=== PATIENT | male | born 1960 | race Caucasian/White ===

== ENCOUNTER 2020-05-29 10:56 | Inpatient (IN) | payer MEDICAID ==
[2020-05-29] VITALS (8 sets, daily range): BP systolic 76–103; BP diastolic 52–68
[~2020-05-29] VITALS: Ht 170.1 cm; Wt 74.2 kg
[2020-05-29] MEDS ORDERED: LACTATED RINGERS 2,000 ML IV ONE (11:19)
[2020-05-29 11:43] LABS: BASOPHILS % (AUTO) 0 % (0-10); EOSINOPHILS % (AUTO) 0 % (0-10); LYMPHOCYTES # (AUTO) 2.8 10^3/uL (1.0-4.0); LYMPHOCYTES % (AUTO) 13 % (12-44); MEAN CORPUSCULAR HEMOGLOBIN 32 pg (25-34); MEAN CORPUSCULAR HGB CONC 30 g/dL (32-36); MEAN CORPUSCULAR VOLUME 107 fL (80-99); MEAN PLATELET VOLUME 11.9 fL (9.0-12.2); MONOCYTES # (AUTO) 1.2 10^3/uL (0.0-1.0); MONOCYTES % (AUTO) 6 % (0-12); NEUTROPHILS # (AUTO) 17.5 10^3/uL (1.8-7.8); NEUTROPHILS % (AUTO) 80 % (42-75); PLATELET COUNT 195 10^3/uL (130-400); WHITE BLOOD COUNT 21.8 10^3/uL (4.3-11.0)
[2020-05-29 11:44] LABS: ALBUMIN 2.3 GM/DL (3.2-4.5); CHLORIDE 106 MMOL/L (98-107); POTASSIUM 4.3 MMOL/L (3.6-5.0); SODIUM 139 MMOL/L (135-145)
[2020-05-29 11:46] LABS: CALCIUM 7.8 MG/DL (8.5-10.1)
[2020-05-29 11:47] LABS: GLUCOSE 143 MG/DL (70-105); HEMATOCRIT 20 % (40-54); HEMOGLOBIN 5.9 g/dL (13.3-17.7); TOTAL PROTEIN 6.2 GM/DL (6.4-8.2)
[2020-05-29 11:48] LABS: CARBON DIOXIDE 13 MMOL/L (21-32)
[2020-05-29 11:49] LABS: BILIRUBIN,TOTAL 1.9 MG/DL (0.1-1.0)
[2020-05-29 11:50] LABS: ALKALINE PHOSPHATASE 72 U/L (40-136)
[2020-05-29 11:51] LABS: GFR ESTIMATED 45
[2020-05-29] MEDS ORDERED: PANTOPRAZOLE 40 MG (PROTONIX) VIAL ONE ×2 (11:51→11:52)
[2020-05-29 11:52] LABS: BUN/CREATININE RATIO 20; INR 2.2 (0.8-1.4); PROTHROMBIN TIME PATIENT 24.9 SEC (12.2-14.7)
[2020-05-29 11:53] LABS: ALANINE AMINOTRANSFERASE 22 U/L (0-55)
[2020-05-29 11:54] LABS: LIPASE 54 U/L (8-78)
[2020-05-29] MEDS ORDERED: PANTOPRAZOLE INJECTION 200 MG in NS (IVPB) 100 ML IV STA (11:54)
[2020-05-29] MEDS ORDERED: PANTOPRAZOLE 40 MG (PROTONIX) VIAL IV ONE (12:00)
--- NOTE | 2020-05-29 12:10 | NUR ---
Pharmacy called and stated there is a nationwide shortage on Protonix drips. Dr. Coronel notified.
[2020-05-29] MEDS ORDERED: LORazepam INJ 2 MG/ML (ATIVAN) VIAL IVP ONE (12:15)
[2020-05-29 12:17] LABS: LYMPHOCYTES % (MANUAL) 13 %; MONOCYTES % (MANUAL) 4 %; NEUTROPHILS % (MANUAL) 83 %; POLYCHROMASIA SLIGHT
[2020-05-29 12:18] LABS: HYPOCHROMASIA MODERATE; TARGET CELLS SLIGHT
--- NOTE | 2020-05-29 12:30 | ED GI ---
General Chief Complaint: Abdominal/GI Problems Stated Complaint: VOMITTING BLOOD Nursing Triage Note: Pt to ED in wheelchair. Pt reports being a heavy drinker of 1-1 1/2 pints of whiskey daily. Pt reports vomiting blood and bloody diarrhea that began four days ago. Pt reports not drinking since episode began. Pt very weak and dizzy. Sepsis Screen: No Definite Risk Source of Information: Patient Exam Limitations: No Limitations History of Present Illness Date Seen by Provider: May 29, 2020 Time Seen by Provider: 12:00 Initial Comments Patient is a 59-year-old male who presents to the emergency department today with a chief complaint of vomiting blood and passing blood in his stool. Patient states that he has been doing this off and on for the last 3 weeks. Patient admits to significant alcohol consumption up to a pint of whiskey a day and several glasses of wine a day. Patient states his last drink was 5 days ago on Wednesday evening. Patient states that he is continued to have maroon-colored vomitus and black stool streaked with red blood. He has never had symptoms like this before. He is currently nauseated. He feels generally weak. He denies chest pain, shortness of breath. He is having some mild abdominal discomfort in the left upper quadrant. He denies any problems with his bladder. No recent fevers, chills, productive cough or other infectious symptoms. Patient states he has never had a seizure related to coming off alcohol. All other review of systems reviewed and negative except as stated. Timing/Duration: 4-5 Days Severity/Quality: Moderate, Burning, Cramping Location: LUQ, Generalized Abdomen Radiation: No Radiation Activities at Onset: None Associated Symptoms: No Back Pain, No Chest Pain, No Fever/Chills; Nausea/Vomiting Allergies and Home Medications Allergies Coded Allergies: No Known Drug Allergies (Unverified , 05/29/20) Patient Home Medication List Home Medication List Reviewed: Yes Review of Systems Review of Systems Constitutional: malaise, weakness EENTM: No Symptoms Reported Respiratory: No Symptoms Reported Cardiovascular: No Symptoms Reported Gastrointestinal: Abdomen Distended, Blood Streaked Stools, Nausea, Poor Appetite, Vomiting Genitourinary: No Symptoms Reported Musculoskeletal: no symptoms reported Skin: no symptoms reported Psychiatric/Neurological: Anxiety, Depressed All Other Systems Reviewed Negative Unless Noted: Yes Past [place]-Tdvnii-Bgabzm Hx Patient Social History Alcohol Use: Regular Use Alcohol Beverage of Choice: Whiskey, Wine Recreational Drug Use: Yes (marijuana) Smoking Status: Current Everyday Smoker Type Used: Cigarettes 2nd Hand Smoke Exposure: Yes Recent Foreign Travel: No Contact w/Someone Who Travel: No Recent Infectious Disease Expo: No Recent Hopitalizations: No Past Medical History Surgeries: Yes (l ankle, ear) Orthopedic Respiratory: No Cardiac: No Neurological: No Genitourinary: No Gastrointestinal: No Musculoskeletal: No Endocrine: No HEENT: No Cancer: No Psychosocial: No Blood Disorders: No Physical Exam Vital Signs Vital Signs - First Documented 05/29/20 11:05 Temp 35.3 Pulse 128 Resp 13 B/P (MAP) 80/58 (65) Pulse Ox 100 O2 Delivery Room Air Capillary Refill : Less Than 3 Seconds Height/Weight/BMI Height: '" Weight: lbs. oz. kg; 21.00 BMI Method: General Appearance: WD/WN, no apparent distress HEENT: PERRL/EOMI, pale conjunctivae (R), pale conjunctivae (L) Neck: full range of motion Respiratory: normal breath sounds, no respiratory distress, no accessory muscle use Cardiovascular: regular rate, rhythm, tachycardia Gastrointestinal: soft, tenderness (Mild tenderness in the left upper quadrant, unable to palpate liver margin) Extremities: normal range of motion, non-tender, normal inspection Neurologic/Psychiatric: no motor/sensory deficits, alert, normal mood/affect, oriented x 3 Skin: warm/dry, pallor Focused Exam Sepsis Stage: Ruled Out Lactate Level 05/29/20 14:50: Lactic Acid Level 10.14*H 05/29/20 16:55: Lactic Acid Level 6.55*H Time of Focused Exam: 14:30 Respiratory: Chest Non Tender, Lungs Clear, Normal Breath Sounds Cardiovascular: Regular Rate, Rhythm Peripheral Pulses: 2+ Radial Pulses (R), 2+ Radial Pulses (L) Skin: warm/dry, pallor Lactic Acid Level Laboratory Tests Test 05/29/20 14:50 05/29/20 16:55 Lactic Acid Level 10.14 MMOL/L (0.50-2.00) *H 6.55 MMOL/L (0.50-2.00) *H Within 3hrs of presentation: Admin fluids, Admin ABX, Blood cultures prior to ABX's, Focus exam, Lactate level Progress/Results/Core Measures Results/Orders Lab Results Laboratory Tests Test 05/29/20 11:15 05/29/20 14:50 05/29/20 16:55 Range/Units White Blood Count 21.8 H 4.3-11.0 10^3/uL Red Blood Count 1.83 L 4.30-5.52 10^6/uL Hemoglobin 5.9 *L 13.3-17.7 g/dL Hematocrit 20 *L 40-54 % Mean Corpuscular Volume 107 H 80-99 fL Mean Corpuscular Hemoglobin 32 25-34 pg Mean Corpuscular Hemoglobin Concent 30 L 32-36 g/dL Red Cell Distribution Width 20.6 H 10.0-14.5 % Platelet Count 195 130-400 10^3/uL Mean Platelet Volume 11.9 9.0-12.2 fL Immature Granulocyte % (Auto) 1 % Neutrophils (%) (Auto) 80 H 42-75 % Lymphocytes (%) (Auto) 13 12-44 % Monocytes (%) (Auto) 6 0-12 % Eosinophils (%) (Auto) 0 0-10 % Basophils (%) (Auto) 0 0-10 % Neutrophils # (Auto) 17.5 H 1.8-7.8 10^3/uL Lymphocytes # (Auto) 2.8 1.0-4.0 10^3/uL Monocytes # (Auto) 1.2 H 0.0-1.0 10^3/uL Eosinophils # (Auto) 0.0 0.0-0.3 10^3/uL Basophils # (Auto) 0.0 0.0-0.1 10^3/uL Immature Granulocyte # (Auto) 0.2 H 0.0-0.1 10^3/uL Neutrophils % (Manual) 83 % Lymphocytes % (Manual) 13 % Monocytes % (Manual) 4 % Polychromasia SLIGHT Hypochromasia MODERATE Target Cells SLIGHT Prothrombin Time 24.9 H 12.2-14.7 SEC INR Comment 2.2 H 0.8-1.4 Activated Partial Thromboplast Time 34 24-35 SEC Sodium Level 139 135-145 MMOL/L Potassium Level 4.3 3.6-5.0 MMOL/L Chloride Level 106 98-107 MMOL/L Carbon Dioxide Level 13 L 21-32 MMOL/L Anion Gap 20 H 5-14 MMOL/L Blood Urea Nitrogen 32 H 7-18 MG/DL Creatinine 1.60 H 0.60-1.30 MG/DL Estimat Glomerular Filtration Rate 45 BUN/Creatinine Ratio 20 Glucose Level 143 H 70-105 MG/DL Calcium Level 7.8 L 8.5-10.1 MG/DL Corrected Calcium 9.2 8.5-10.1 MG/DL Total Bilirubin 1.9 H 0.1-1.0 MG/DL Aspartate Amino Transf (AST/SGOT) 56 H 5-34 U/L Alanine Aminotransferase (ALT/SGPT) 22 0-55 U/L Alkaline Phosphatase 72 40-136 U/L Total Protein 6.2 L 6.4-8.2 GM/DL Albumin 2.3 L 3.2-4.5 GM/DL Lipase 54 8-78 U/L Serum Alcohol < 10 <10 MG/DL Lactic Acid Level 10.14 *H 6.55 *H 0.50-2.00 MMOL/L My Orders Orders - TRICE LOZADA MD Lactated Ringers (Lr 1000 Ml Iv Solution (05/29/20 11:19) Cbc With Automated Diff (05/29/20 11:36) Comprehensive Metabolic Panel (05/29/20 11:36) Lipase (05/29/20 11:36) Alcohol (05/29/20 11:36) Protime With Inr (05/29/20 11:36) Partial Thromboplastin Time (05/29/20 11:36) Type And Screen (05/29/20 11:36) Ed Iv/Invasive Line Start (05/29/20 11:36) Pantoprazole Injection (Protonix Injecti (05/29/20 11:51) Pantoprazole Injection (Protonix Injecti (05/29/20 12:00) Ns (Ivpb) (Sodium C... W/Pantoprazole In (05/29/20 11:54) Pantoprazole Injection (Protonix Injecti (05/29/20 11:52) Lorazepam Injection (Ativan Injection) (05/29/20 12:15) Manual Differential (05/29/20 11:15) Red Cells Leukocytes Reduced (05/29/20 12:18) Ondansetron Injection (Zofran Injectio (05/29/20 13:15) Ns Iv 1000 Ml (Sodium Chloride 0.9%) (05/29/20 13:20) Blood Culture (05/29/20 14:37) Lactic Acid Analyzer (05/29/20 14:37) Ceftriaxone For Iv Use (Rocephin For I (05/29/20 14:45) Octreotide Injection (Sandostatin Inje (05/29/20 14:45) Blood Culture (05/29/20 15:03) Octreotide Injection (Sandostatin Inje (05/29/20 15:16) Octreotide Injection (Sandostatin Inje (05/29/20 15:30) Medications Given in ED Current Medications Medications Dose Ordered Sig/Darleen Route Start Time Stop Time Status Last Admin Dose Admin Ceftriaxone Sodium 1000 mg/ Sterile Water 10 ml @ 200 mls/hr ONCE ONCE IV 05/29/20 14:45 05/29/20 14:47 DC 05/29/20 15:24 200 MLS/HR Lactated Ringer's 2,000 ml @ ud STK-MED ONCE IV 05/29/20 11:19 05/29/20 11:22 DC 05/29/20 11:33 2,000 MLS/HR Lorazepam 2 mg ONCE ONCE IVP 05/29/20 12:15 05/29/20 12:16 DC 05/29/20 12:21 2 MG Octreotide Acetate 50 mcg ONCE ONCE IV 05/29/20 15:30 05/29/20 15:31 DC 05/29/20 15:55 50 MCG Ondansetron HCl 4 mg ONCE ONCE IVP 05/29/20 13:15 05/29/20 13:19 DC 05/29/20 13:48 4 MG Pantoprazole 80 mg ONCE ONCE IV 05/29/20 12:00 05/29/20 12:01 DC 05/29/20 11:59 80 MG Vital Signs/I&O 05/29/20 05/29/20 05/29/20 05/29/20 11:05 13:38 13:47 13:54 Temp 35.3 36.1 36.1 36.7 Pulse 128 129 134 125 Resp B/P (MAP) 80/58 (65) 88/59 96/61 76/52 Pulse Ox 100 100 100 100 O2 Delivery Room Air Room Air 05/29/20 05/29/20 05/29/20 05/29/20 14:00 14:06 15:50 16:09 Temp 36.1 36.1 36.2 37.0 Pulse 129 126 125 113 Resp 13 10 14 15 B/P (MAP) 78/60 78/60 83/65 103/68 Pulse Ox 97 98 98 98 O2 Delivery Room Air Room Air Room Air Room Air 05/29/20 16:19 Temp 37.0 Pulse 117 Resp 15 B/P (MAP) 77/63 Pulse Ox 98 O2 Delivery Room Air Blood Pressure Mean: 65 Progress Progress Note : Time: 17:21 Progress Note Patient resting comfortably here in the emergency department. Case is discussed with Dr. Pritchard on for the hospitalist service as well as Dr. Padilla on for general surgery secondary to the GI bleed. Patient's blood pressure is currently 98/65. He is completing his second unit of blood/packed red blood cells. Patient is made aware that he will be admitted to the hospital here. There was some question as to whether or not we would have bed availability however this has been resolved. Patient is getting Rocephin 1 g for spontaneous bacterial peritonitis prophylaxis. He has no clinical or objective findings concerning for SBP at this time. The patient is afebrile. His belly is nontender. Suspect lactic acidosis is from his dehydration and GI bleed and NOT severe sepsis/septic shock. Lactic acid was 10 at initial draw 1 blood cultures were done. Patient is responding to fluid and blood resuscitation nicely. Critical Care Note Critical Care Start Time: 12:15 Stop Time: 14:30 Total Time (minutes) 1 hour of critical care time for evaluation and management of this hypotensive patient with GI bleeding both upper and lower. Management of dehydration, review and interpretation and management of abnormal laboratory functions, blood transfusions, discussion with hospitalist Departure Communication (Admissions) Time/Spoke to Admitting Phy: 14:[address] Pritchard at 1436, requests octreotide be started, a general surgery consultation. He also requests Rocephin 1 g IV for SBP prophylaxis. Patient will be admitted to the ICU. Time/Spoke to Consulting Phy: 14:[address] Padilla Impression Primary Impression: GI bleed Qualified Codes: K92.0 - Hematemesis Additional Impression: Anemia Qualified Codes: D64.89 - Other specified anemias Disposition: ADMITTED INPATIENT Condition: Critical Admissions Decision to Admit Reason: Admit from ER (General) Decision to Admit/Date: May 29, 2020 Time/Decision to Admit Time: 14:40 Departure-Patient Inst. Referrals: [facility] [place] (PCP/Family) Primary Care Physician TRICE LOZADA MD May 29, 2020 12:30
--- NOTE | 2020-05-29 13:00 | NUR ---
Pt unable to sign consent for blood products due to weakness. Verbal consent witnessed with MARISA Lama.
[2020-05-29] MEDS ORDERED: ONDANSETRON 4 MG/2 ML (SDV) Z0FRAN IVP ONE (13:15)
[2020-05-29] MEDS ORDERED: NS IV 1000 ML 1,000 ML ONE (13:20)
--- NOTE | 2020-05-29 14:37 | NUR ---
Spoke with pt's significant other regarding plan of care.
[2020-05-29] MEDS ORDERED: OCTREOTIDE (FOR SQ USE) 100 MCG/ML VIAL (SandoSTATIN) SC ONE (14:45)
[2020-05-29] MEDS ORDERED: cefTRIAXone FOR IV USE 1,000 MG in WATER (STERILE) FOR INJECTION 10 ML IV ONE (14:45)
[2020-05-29] MEDS ORDERED: OCTREOTIDE (FOR BOLUS) 50 MCG/ML SYR (SandoSTATIN) ONE (15:16)
[2020-05-29] MEDS ORDERED: OCTREOTIDE (FOR BOLUS) 50 MCG/ML SYR (SandoSTATIN) IV ONE (15:30)
--- NOTE | 2020-05-29 16:24 | CONSULTATION REPORT ---
DATE OF SERVICE: ATTENDING MUD ANALYSIS WELL LOGGING OPERATOR: [facility]. HISTORY OF PRESENT ILLNESS: The patient is a 59-year-old male, who presented to the emergency department with hematemesis as well as dark stools. He states that this has been going on an intermittent basis for the past three to four weeks. He does admit to a significant amount of alcohol consumption for many years. The patient also appears to have abdominal ascites. He also does have other risk factors including smoking daily. Laboratory work was performed, which did show a significant anemia with a hemoglobin of 5.9 and hematocrit of 20. PAST MEDICAL HISTORY: Peptic ulcer disease, gastroesophageal reflux disease and alcohol abuse. PAST SURGICAL HISTORY: Left ankle ORIF. ALLERGIES: No known drug allergies. MEDICATIONS: None. SOCIAL HISTORY: Positive smoke 40 pack years. Positive marijuana, whiskey daily for many years. FAMILY HISTORY: Noncontributory. REVIEW OF SYSTEMS: This is a well-nourished male currently in gaurded secondary to the nausea and fatigue. He is not experiencing any shortness of breath or difficulty breathing. No chest pain, palpitations, diaphoresis. He has had intermittent episodes of bouts of nausea and vomiting with red blood as well as a maroon-colored blood. He also does report maroon-colored stools on an intermittent basis, all of which have been occurring for the past four weeks. No fever, chills and no recent inadvertent weight loss. All other review of systems is negative. PHYSICAL EXAMINATION: VITAL SIGNS: Temperature 36.1, blood pressure 78/60, pulse 126, respirations 10 and pulse ox 98% on room air. CHEST: A few scattered rales and rhonchi bilaterally. HEART: Regular and no murmurs. EXTREMITIES: No lower extremity edema, negative Homans sign. HEENT: No scleral icterus. NECK: No cervical lymphadenopathy. ABDOMEN: Soft and nondistended. There is mild discomfort in the epigastric region. SKIN: Warm and dry. LABORATORY DATA: WBC 21.8, hemoglobin 5.9, hematocrit 20 and platelets 195. BUN 32, creatinine 1.60 and total bilirubin 1.9. INR is 2.2. ASSESSMENT AND PLAN: A 59-year-old male with gastrointestinal bleeding, most likely peptic ulcer disease versus esophageal varices. He will need resuscitation with blood and blood products. His Child-Farooq classification is at a 7, which is a class B and does portend 80% one-year survival. We will await resuscitation and PPI acid reducers and proceed with an EGD on this admission. Job ID: [id number] DocumentID: [id number] Dictated Date: 05/29/2020 15:58:07 Merchandise Manager Date: 05/29/2020 16:23:47 Dictated By: JOY LEONARD MD [facility]
--- NOTE | 2020-05-29 17:38 | NUR ---
Second unit of blood infusing to floor.
[2020-05-29] MEDS ORDERED: LORazepam INJ 2 MG/ML (ATIVAN) VIAL IM/IV PRN (18:30)
[2020-05-29] MEDS ORDERED: D5 1/2 NS 1000 ML IV SOLUTION 1,000 ML IV PRN (18:30)
[2020-05-29] MEDS ORDERED: SENNA W/DOCUSATE (SENOKOT S) TABLET PO PRN (18:30)
[2020-05-29] MEDS ORDERED: ANTACID SUSP 30 ML UDC (MYLANTA) PO PRN (18:30)
[2020-05-29] MEDS ORDERED: 1/2 NS IV SOLUTION 1,000 ML IV PRN (18:30)
[2020-05-29] MEDS ORDERED: ONDANSETRON 4 MG/2 ML (SDV) Z0FRAN IV PRN (18:30)
[2020-05-29] MEDS ORDERED: ONDANSETRON 4 MG (ZOFRAN) ORAL DISSOLVE TAB SL PRN (18:30)
[2020-05-29] MEDS ORDERED: LORazepam 1 MG (ATIVAN) TAB PO PRN (18:30)
[2020-05-29] MEDS: NS IV 1000 ML 1,000 ML IV SCH (18:33)
[2020-05-29] MEDS ORDERED: ONDANSETRON 4 MG/2 ML (SDV) Z0FRAN IVP PRN (19:00)
[2020-05-29 19:11] LABS: ALBUMIN 2.1 GM/DL (3.2-4.5); CHLORIDE 106 MMOL/L (98-107); POTASSIUM 4.6 MMOL/L (3.6-5.0); SODIUM 137 MMOL/L (135-145)
[2020-05-29 19:12] LABS: CALCIUM 7.6 MG/DL (8.5-10.1); INR 2.2 (0.8-1.4); PROTHROMBIN TIME PATIENT 24.7 SEC (12.2-14.7)
[2020-05-29 19:14] LABS: GLUCOSE 132 MG/DL (70-105); TOTAL PROTEIN 5.5 GM/DL (6.4-8.2)
[2020-05-29 19:15] LABS: BILIRUBIN,TOTAL 2.3 MG/DL (0.1-1.0); CARBON DIOXIDE 19 MMOL/L (21-32)
[2020-05-29 19:17] LABS: ALKALINE PHOSPHATASE 62 U/L (40-136); CREATININE SERUM 1.46 MG/DL (0.60-1.30); GFR ESTIMATED 50
[2020-05-29 19:18] LABS: BUN/CREATININE RATIO 25
[2020-05-29 19:20] LABS: ALANINE AMINOTRANSFERASE 22 U/L (0-55)
[2020-05-29] MEDS ORDERED: LIDOCAINE UROJET 2% GEL 10 ML PKG ONE (20:15)
[2020-05-29] MEDS: LORazepam INJ 2 MG/ML (ATIVAN) VIAL IV PRN (20:21)
[2020-05-29] MEDS ORDERED: LIDOCAINE UROJET 2% GEL 10 ML PKG TOP ONE (20:30)
[2020-05-29 22:01] LABS: HEMOGLOBIN 7.9 g/dL (13.3-17.7)
[2020-05-29] MEDS: DexMEDEtomidine PRE MIX 100 ML IV SCH (23:08)
[2020-05-29] MEDS ORDERED: NS IV 500 ML 500 ML IV SCH ×2 (23:15)
--- NOTE | 2020-05-29 23:35 | NUR ---
THIS RN NOTIFIED EICU OF PATIENT'S DECREASED BP WITH SBP IN 70'S AND HR IN 100'S, NEW ORDER RECEIVED SEE EMAR AND ORDER HX.
[2020-05-30] VITALS (10 sets, daily range): BP systolic 55–129; BP diastolic 41–89
--- NOTE | 2020-05-30 00:49 | NUR ---
THIS RN NOTIFIED DR. RESENIDZ WITH TELE-ICU OF PATIENT'S SBT IN 50-60'S, PRECEDEX HAS BEEN OFF SINCE 0025. 1 UNIT PRBC'S CURRENTLY INFUSING. ORDER RECEIVED TO INCREASE RATE OF INFUSION PER PROTOCOL AT THIS TIME, WILL CONTINUE TO MONITOR.
[2020-05-30] MEDS: LORazepam INJ 2 MG/ML (ATIVAN) VIAL IV PRN ×2 (01:24→10:22)
--- NOTE | 2020-05-30 02:15 | NUR ---
THIS RN NOTIFIED DR. RESENDIZ WITH TELE-ICU OF PATIENT'S SBP SUSTAINING IN 60-70'S, PATIENT'S BLOOD TRANSFUSION JUST COMPLETED AT THIS TIME. NEW ORDERS RECEIVED, SEE EMAR AND ORDER HX.
[2020-05-30] MEDS ORDERED: NS IV 1000 ML 1,000 ML IV SCH ×2 (02:30→04:30)
[2020-05-30] MEDS: NS IV 1000 ML 1,000 ML IV SCH (03:39)
--- NOTE | 2020-05-30 04:00 | Pulmonary Consultation ---
History of Present Illness History of Present Illness Date Seen by Provider: May 30, 2020 Time Seen by Provider: 03:55 Date of Admission Allergies and Home Medications Allergies Coded Allergies: No Known Drug Allergies (Unverified , 05/29/20) Past [place]abz-Mellbo-Zewwot Hx Patient Social History Alcohol Use: Regular Use Alcohol Beverage of Choice: Whiskey, Wine Recreational Drug Use: Yes (marijuana) Smoking Status: Current Everyday Smoker Type Used: Cigarettes 2nd Hand Smoke Exposure: Yes Recent Foreign Travel: No Contact w/Someone Who Travel: No Recent Infectious Disease Expo: No Recent Hopitalizations: No Past Medical History Surgeries: Yes (l ankle, ear) Orthopedic Respiratory: No Cardiac: No Neurological: No Genitourinary: No Gastrointestinal: No Musculoskeletal: No Endocrine: No HEENT: No Cancer: No Psychosocial: No Blood Disorders: No Family Medical History Patient reports no known family medical history. Review of Systems Time Seen by Provider: 03:57 Sepsis Event Evaluation Height, Weight, BMI Height: '" Weight: lbs. oz. kg; 21.00 BMI Method: Exam Exam Vital Signs Date Time Temp Pulse Resp B/P (MAP) Pulse Ox O2 Delivery O2 Flow Rate FiO2 05/30/20 02:15 36.5 86 12 65/44 95 Room Air 05/30/20 00:45 36.6 84 19 59/43 97 Room Air 05/30/20 00:28 36.5 86 17 55/41 94 Room Air 05/30/20 00:00 36.5 05/30/20 00:00 94 32 66/45 (52) 91 Room Air 05/29/20 23:08 36.8 120 20 100/81 95 Room Air 05/29/20 23:00 123 21 66/46 (53) 96 Room Air 05/29/20 22:00 118 17 120/81 (94) 94 Room Air 05/29/20 21:00 138 15 117/84 (95) 99 Room Air 05/29/20 20:00 97 Room Air 05/29/20 20:00 121 25 112/85 (94) 97 Room Air 05/29/20 20:00 36.8 120 20 100/81 (87) 95 Room Air 05/29/20 19:23 Room Air 05/29/20 19:00 116 20 116/73 (87) 98 Room Air 05/29/20 18:47 113 05/29/20 18:19 113 05/29/20 17:34 37.0 111 17 84/61 (68) 98 Room Air 05/29/20 16:19 37.0 117 15 77/63 98 Room Air 05/29/20 16:09 37.0 113 15 103/68 98 Room Air 05/29/20 15:50 36.2 125 14 83/65 98 Room Air 05/29/20 14:06 36.1 126 10 78/60 98 Room Air 05/29/20 14:00 36.1 129 13 78/60 97 Room Air 05/29/20 13:54 36.7 125 19 76/52 100 Room Air 05/29/20 13:47 36.1 134 19 96/61 100 05/29/20 13:38 36.1 129 9 88/59 100 05/29/20 11:05 35.3 128 13 80/58 (65) 100 Room Air I & O 05/30/20 07:00 Intake Total 2345 ml Output Total 250 ml Balance 2095 ml Height & Weight Height: '" Weight: lbs. oz. kg; 21.00 BMI Method: Respiratory: Chest Non Tender, Lungs Clear, Normal Breath Sounds Cardiovascular: Regular Rate, Rhythm Capillary Refill: Less Than 3 Seconds Peripheral Pulses: 2+ Radial Pulses (R), 2+ Radial Pulses (L) Gastrointestinal: soft, tenderness (Mild tenderness in the left upper quadrant, unable to palpate liver margin) Results Lab Laboratory Tests 05/29/20 11:15 05/29/20 18:45 05/29/20 21:50 Assessment/Plan Assessment/Plan Acute GIB s/p 3 units PRBC -Monitor Hb -Lab and RN is having a difficult time obtaining blood. -1 unit of PRBC on hold. If unable to obtain labs secondary to difficult stick will proceed with transfusion secondary to hypotension and known bleeding. Lab and RN are currently trying to obtain blood. -EICU gave another liter of PRBC last night secondary to acute bleeding and hypotension -start rocephin for ppx -Octreotide -Protonix BID -Plan is for EGD Alcohol dependance -CIWA protocol -Pt has been getting ativan -Precedex was stopped at 115 Hypotension -Give a liter bolus -Will have surgery place central line this AM. Hepatic encpephalopathy with lethargy and agitation -PT may need to be intubated -Check ammonia level -Check ABG -Precedex was stopped secondary to hypotension Metabolic acidosis -Repeat LA -Change IVF to LR Acute renal failure -Give a liter bolus of NS -Monitor Update: Called to room stat because of worsening agitation 5 people currently ho lding pt down. Lab also at bedside unable to obtain blood. I proceeded with emergent intubation secondary to instability of patient. Pt became hypotensive. glue specialty supervisor is calling surgery to place central line. Then at 645am I was called back to patients room secondary to blood pressure of 46/36. Because pt was on the verge of coding I placed emergent central line and started Levophed. Pt would have went into cardiac arrest if we waited for surgery to arrive. OPAL CHAVES DO May 30, 2020 04:00
--- NOTE | 2020-05-30 04:30 | NUR ---
TIMELINE NOTE BELOW: 0400- THIS RN NOTIFIED DR. CHAVES OF PATIENT'S CONDITION THROUGHOUT SHIFT, SBP RANGING ANYWHERE BETWEEN 60-70'S INCREASING TO SBP IN 90'S AFTER BOLUS RECEIVED. PATIENT INCREASINGLY AGITATED, CLIMBING OUT OF BED AND PULLING AT ESSENTIAL LINES AND TUBES. UNABLE TO OBTAIN MIDNIGHT LACTIC ACID DUE TO PATIENT'S AGITATION. 0430- THIS RN NOTIFIED DR. CHAVES THAT PATIENT IS INCREASINGLY AGITATED, UNABLE TO OBTAIN MORNING LABS AT THIS TIME DESPITE 5 RN'S AT BEDSIDE TO HELP WITH PATIENT. 0500- DECISION MADE BY DR. CHAVES TO INTUBATE SECONDARY TO INCREASED AGITATION, CONFUSION AND HYPOTENSION. ROOM BEING READIED FOR INTUBATION AND RT NOTIFIED. 0510- THIS RN NOTIFIED PATIENT'S EMERGENCY CONTACT/SIGNIFICANT OTHER, JENNIFER GALINDO, AT THIS TIME. TELEPHONE CONSENT RECEIVED, WITNESSED BY MARISA KIMBALL. 0511- DR. CHAVES, RT X 2, AND RN X 2 AT BEDSIDE FOR INTUBATION. 4MG VERSED IV, AND 50 MCG FENTANYL GIVEN PER DR. CHAVES. 0514- 5 CC'S PROPOFOL GIVEN PER DR. CHAVES. INTUBATION IN PROGRESS. 15- 50MG ROCURONIUM GIVEN PER DR. CHAVES. INTUBATION IN PROGRESS. 0519- PT INTUBATED. SIZE 8 ETT. POSITION OF TUBE 24 AT THE LIP WITH POSITIVE COLOR CHANGE. BILATERAL BREATH SOUNDS AUSCULTATED BY THIS RN. STAT CXR ORDERED. PT PLACED ON VENT WITH VENTILATOR SETTINGS PER DR CHAVES BY RT. 0520- PROPOFOL GTT INITIATED AT 20MCG/KG/MIN, NS BOLUS INFUSING AT THIS TIME. OGT PLACED. FARFAN PLACED. RESTRAINTS PLACED. PATIENT VITALS REMAIN STABLE. 0600- THIS RN NOTIFIED DR. CHAVES OF PATIENT'S LABS AND DECREASING BP. NEW ORDER RECEIVED AT THIS TIME FOR CENTRAL LINE PLACEMENT BY SURGEON WELL FLUID BOLUS. SEE EMAR AND ORDER HX. USER SUPPORT ANALYST NOTIFIED SURGEON AT THIS TIME FOR CENTRAL LINE PLACEMENT. 0645- THIS RN NOTIFIED DR. CHAVES OF CONTINUED HYPOTENSION, CURRENT BP 46/36. DR. CHAVES AT BEDSIDE TO ASSESS AND ORDERED STAT CENTRAL LINE PLACEMENT SECONDARY TO PATIENT'S SUSTAINING HYPOTENSION AND NEED FOR VASOPRESSOR THERAPY IMMEDIATELY. 1 UNIT OF PRBC'S ALSO ORDERED, SEE ORDER HX AND TRANSFUSION HX. 0654- DR. CHAVES AT BEDSIDE TO PLACE CENTRAL LINE. 50MG ROCURONIUM GIVEN PER DR. CHAVES. 0655- LEVOPHED STARTED AT 0.03 MCG/KG/MIN. 0658- CENTRAL LINE PLACEMENT COMPLETED AT THIS TIME. 0900- THIS RN UPDATED SIGNIFICANT OTHER, JENNIFER GALINDO, AT THIS TIME.
[2020-05-30] MEDS ORDERED: MIDAZOLAM 5 MG/5 ML (VERSED) VIAL ONE (04:42)
[2020-05-30] MEDS ORDERED: fentaNYL INJECTION 100 MCG/2 ML AMP ONE (04:42)
[2020-05-30] MEDS ORDERED: PROPOFOL DRIP (ICU) 100 ML IV ONE (04:42)
[2020-05-30] MEDS ORDERED: NS IV 500 ML 500 ML IV SCH (05:00)
[2020-05-30 05:18] LABS: ABG BASE EXCESS -1.8 MMOL/L (-2.5-2.5); ABG OXYGEN SATURATION 70 % (94-100); ABG PCO2 40 MMHG (35-45); ABG PH 7.37 (7.37-7.43); ABG PO2 43 MMHG (79-93); ABG TCO2 23.9 MMOL/L (21.0-31.0)
--- NOTE | 2020-05-30 05:26 | Pulmonary Procedures ---
Pulmonary Procedures Date of Procedure Date of Service: May 30, 2020 Reason for Intubation: acute respiratory distress and agitation. Time of Intubation: 05:25 Intubation Method: orotracheal Tube Size: 8 Medications: Fentanyl, Propofol, Rocuronium, Versed Positive End Tide CO2: Yes Breath Sounds after Intubation: bilateral-equal Intubation Complications: no complications Post Intubation Xray: Yes OPAL CHAVES DO May 30, 2020 05:26
[2020-05-30 05:31] LABS: ALLENS TEST POS; VENTILATOR NO
[2020-05-30 05:32] LABS: INSPIRED O2 ROOM AIR; PATIENT TEMP 36.8
[2020-05-30 05:33] LABS: CHLORIDE 112 MMOL/L (98-107); POTASSIUM 4.4 MMOL/L (3.6-5.0); SODIUM 138 MMOL/L (135-145)
[2020-05-30 05:34] LABS: CALCIUM 6.7 MG/DL (8.5-10.1)
[2020-05-30 05:35] LABS: GLUCOSE 108 MG/DL (70-105)
[2020-05-30 05:36] LABS: CARBON DIOXIDE 20 MMOL/L (21-32)
[2020-05-30 05:37] LABS: BASOPHILS # (AUTO) 0.1 10^3/uL (0.0-0.1); BASOPHILS % (AUTO) 0 % (0-10); EOSINOPHILS % (AUTO) 0 % (0-10); HEMATOCRIT 23 % (40-54); HEMOGLOBIN 7.7 g/dL (13.3-17.7); LYMPHOCYTES # (AUTO) 3.6 10^3/uL (1.0-4.0); LYMPHOCYTES % (AUTO) 23 % (12-44); MEAN CORPUSCULAR HEMOGLOBIN 31 pg (25-34); MEAN CORPUSCULAR HGB CONC 33 g/dL (32-36); MEAN CORPUSCULAR VOLUME 93 fL (80-99); MEAN PLATELET VOLUME 12.5 fL (9.0-12.2); MONOCYTES # (AUTO) 1.9 10^3/uL (0.0-1.0); MONOCYTES % (AUTO) 12 % (0-12); NEUTROPHILS # (AUTO) 10.4 10^3/uL (1.8-7.8); NEUTROPHILS % (AUTO) 65 % (42-75); PLATELET COUNT 97 10^3/uL (130-400); WHITE BLOOD COUNT 16.1 10^3/uL (4.3-11.0)
[2020-05-30 05:38] LABS: CREATININE SERUM 1.17 MG/DL (0.60-1.30); PHOSPHORUS 3.2 MG/DL (2.3-4.7)
[2020-05-30 05:39] LABS: BUN/CREATININE RATIO 35
[2020-05-30 05:41] LABS: MAGNESIUM 1.4 MG/DL (1.6-2.4)
[2020-05-30 05:49] LABS: GFR ESTIMATED > 60
[2020-05-30] MEDS ORDERED: NS IV 1000 ML 1,000 ML IV ONE (06:00)
[2020-05-30] MEDS: NOREPINEPHRINE 4 MG/250 ML 250 ML IV SCH ×3 (06:55→22:22)
[2020-05-30] MEDS ORDERED: NS IV 1000 ML 1,000 ML ONE (07:28)
[2020-05-30] MEDS ORDERED: ROCURONIUM 10 MG/ML 5 ML SYRINGE IV ONE (07:33)
--- NOTE | 2020-05-30 07:41 | Diagnostic Imaging Report ---
INDICATION: Evaluate line placement. Comparison made with prior examination 05/30/2020 FINDINGS: The left internal jugular central venous catheter crosses the midline in this cephalad direction presumably up the right internal jugular vein. ET and NG tubes are in satisfactory position. Some left basilar atelectasis and/or pneumonitis. There is no pneumothorax. Mediastinum is unremarkable. IMPRESSION: Abnormal placement of a left internal jugular central venous catheter as described. Left basilar atelectasis and/or pneumonitis. Dictated by: Dictated on workstation # [id number]
--- NOTE | 2020-05-30 07:50 | Diagnostic Imaging Report ---
INDICATION: Tube placement. No prior examinations are available for comparison. FINDINGS: ET and NG tubes are in satisfactory position. Heart size is normal. Lungs are clear. There appears to be some mild venous congestion. There is no pneumothorax. IMPRESSION: Mild central pulmonary venous congestion. ET and NG tubes appear to be in satisfactory position. Dictated by: Dictated on workstation # [id number]
--- NOTE | 2020-05-30 08:28 | NUR ---
THIS RN CALLED DR. LEONARD TO GIVE UPDATE ON PATIENT'S STATUS.
[2020-05-30] MEDS: LACTATED RINGERS 1,000 ML IV SCH ×3 (09:59→20:19)
[2020-05-30] MEDS: PANTOPRAZOLE 40 MG (PROTONIX) VIAL IV SCH ×2 (10:00→20:00)
[2020-05-30] MEDS: PROPOFOL DRIP (ICU) 100 ML IV SCH ×3 (10:00→21:39)
[2020-05-30] MEDS ORDERED: LACTATED RINGERS 1,000 ML IV ONE (10:00)
[2020-05-30] MEDS: THIAMINE INJECTION 100 MG, FOLIC ACID INJECTION 1 MG, VITAMIN MULTI INJECTION 10 ML, MA... IV SCH ×5 (10:01)
[2020-05-30] MEDS ORDERED: MIDAZOLAM DRIP PRE-MIX 100 ML IV ONE (10:13)
[2020-05-30] MEDS: MIDAZOLAM DRIP PRE-MIX 100 ML IV SCH (10:23)
--- NOTE | 2020-05-30 10:35 | Diagnostic Imaging Report ---
EXAMINATION: Portable erect AP chest at 10:08 a.m. INDICATION: PICC line insertion. FINDINGS: The exam performed earlier today at 07:25 a.m. noted a left-sided central venous catheter in place. The tip of the catheter had crossed the midline and was directed cephalad in the region of the right internal jugular vein. On this exam, the tip of the line seems unchanged in position. I would recommend that the line be repositioned so that the tip overlies the superior vena cava. Also, in the interval since the prior exam a right-sided PICC line has been inserted. The tip of the line overlies the midportion of the superior vena cava. There is no sign of a pneumothorax on the right. The overall appearance of the chest has not changed significantly otherwise. There is persistent involvement of the left lung base by atelectasis/infiltrate. IMPRESSION: 1. The tip of the central venous catheter on the left continues to overlie the expected location of the right internal jugular vein. Recommendations as above. 2. There has been interval insertion of a right-sided PICC line without apparent complication. 3. The overall appearance of the chest is otherwise stable. Report given to ICU nurse (Eli) at 10:41AM 05/30/2020/cb Dictated by: Dictated on workstation # [id number]
--- NOTE | 2020-05-30 10:55 | NUR ---
SPOKE WITH DR MEJIA VIA TELEPHONE. HE REPORTS THAT PICC IS IN GOOD PLACEMENT ET OK TO USE. MARISA HARDIN NOTIFIED
[2020-05-30 10:58] LABS: ABG BASE EXCESS -3.2 MMOL/L (-2.5-2.5); ABG OXYGEN SATURATION 100 % (94-100); ABG PCO2 36 MMHG (35-45); ABG PH 7.39 (7.37-7.43); ABG PO2 127 MMHG (79-93); ABG TCO2 22.3 MMOL/L (21.0-31.0)
[2020-05-30 10:59] LABS: PATIENT TEMP 36.4; VENTILATOR NO
[2020-05-30 11:05] LABS: CLARITY,URINE CLEAR; COLOR,URINE YELLOW; GLUCOSE, URINE (UA) NEGATIVE (NEGATIVE); KETONES,URINE NEGATIVE (NEGATIVE); LEUKOCYTE ESTERASE ,URINE NEGATIVE (NEGATIVE); NITRITE,URINE NEGATIVE (NEGATIVE); PH,URINE 6.5 (5-9); PROTEIN,URINE NEGATIVE (NEGATIVE)
[2020-05-30 11:18] LABS: BILIRUBIN,URINE 1+ (NEGATIVE)
[2020-05-30 11:19] LABS: BACTERIA,URINE NEGATIVE /HPF; RBC,URINE 50-100 /HPF; SQUAMOUS EPITHELIAL CELL,UR RARE /HPF; WBC,URINE 0-2 /HPF
--- NOTE | 2020-05-30 11:29 | Pulmonary Procedures ---
Pulmonary Procedures Date of Procedure Date of Service: May 30, 2020 Lumen: triple (US guided) Central Line Procedure: betadine prep, sterile drapes applied, sterile dressing applied Position: internal jugular (L) Complications: none Post Position: sutured, good blood return, position confirmed w/ CXR OPAL CHAVES DO May 30, 2020 11:29
[2020-05-30 11:31] LABS: HEMOGLOBIN 8.5 g/dL (13.3-17.7)
[2020-05-30] MEDS ORDERED: MAGNESIUM 1 GM/100 ML IVPB 200 ML IV ONE (11:54)
[2020-05-30] MEDS: MAGNESIUM 1 GM/100 ML IVPB 100 ML IV SCH ×2 (11:59→13:12)
[2020-05-30] MEDS: OCTREOTIDE DRIP 500 MCG/NS 99 ML IV SCH ×4 (13:14→20:00)
--- NOTE | 2020-05-30 13:19 | NUR ---
UNABLE TO SPEAK WITH PT AT THIS TIME- I DID REACH OUT TO HIS SIGNIFICANT OTHER (JENNIFER GALINDO) TO COMPLETE THE MED REC ACCORDING TO WENT THE PT DOES NOT TAKE ANY PRESCRIPTION OR OTC MEDICATIONS THERE WAS NOTHING LISTED ON THE EXT MED HISTORY
--- NOTE | 2020-05-30 14:24 | NUR ---
THIS NURSE UPDATED GF JENNIFER ON PT CONDITION.
[2020-05-30] MEDS: cefTRIAXone FOR IV USE 1,000 MG in WATER (STERILE) FOR INJECTION 10 ML IV SCH (14:46)
--- NOTE | 2020-05-30 14:55 | NUR ---
THIS NURSE NOTIFIED DR LEONARD PT HAS BEEN HYPOTENSIVE ON LEVO. PT ABD IS SOFT. PT HAS NOT HAD A BM BUT THERE IS MORE BLOOD COMING FROM OGT. REPEAT H&H AT 11 AFTER UNIT OF PRBC WAS HGB 8.5 AND HCT 25. NO NEW ORDERS AT THIS TIME WILL CONTINUE TO MONITOR.
--- NOTE | 2020-05-30 15:44 | History & Physical-Hospitalist ---
History of Present Illness HPI/Chief Complaint Dustin Solares is a 59 year old male with PMH alcohol dependence who presented with hematemesis. He is a poor historian. He reports that he has been having bloody emesis and melena for an undetermined amount of time. He reports drinking every day. He denies fevers and chills. He denies trouble breathing and cough. He reports abdominal swelling. Source: patient Exam Limitations: no limitations Date Seen 05/29/20 Time Seen by a Provider: 16:45 Attending Physician Saadia Gibson MD PCP [facility] [place] Referring Physician Date of Admission May 29, 2020 at 17:06 Home Medications & Allergies Home Medications Reviewed patient Home Medication Reconciliation performed by pharmacy medication reconciliations wheel alignment technician and/or nursing. Patients Allergies have been reviewed. Allergies Allergies Coded Allergies No Known Drug Allergies (Afrjailclc91/9/20) Past Gstfazk-Tkbsoj-Pxequg Hx Past Med/Social Hx: Reviewed Nursing Past Med/Soc Hx Patient Social History Alcohol Use: Regular Use Alcohol Beverage of Choice: Whiskey, Wine Recreational Drug Use: Yes (marijuana) Smoking Status: Current Everyday Smoker Type Used: Cigarettes 2nd Hand Smoke Exposure: Yes Recent Foreign Travel: No Contact w/other who traveled: No Recent Hopitalizations: No Recent Infectious Disease Expo: No Past Medical History Surgeries: Orthopedic History of Blood Disorders: No Family History Patient reports no known family medical history. Review of Systems Constitutional: no symptoms reported EENTM: no symptoms reported Respiratory: no symptoms reported Cardiovascular: no symptoms reported Gastrointestinal: hematemesis, melena, nausea, vomiting Genitourinary: no symptoms reported Musculoskeletal: no symptoms reported Skin: no symptoms reported Psychiatric/Neurological: No Symptoms Reported Physical Exam Physical Exam Vital Signs Vital Signs - First Documented 05/29/20 05/30/20 05/30/20 11:05 05:49 07:00 Temp 35.3 Pulse 128 Resp 13 B/P (MAP) 80/58 (65) Pulse Ox 100 O2 Delivery Room Air O2 Flow Rate 40.00 FiO2 40 Capillary Refill : Less Than 3 Seconds Height, Weight, BMI Height: '" Weight: lbs. oz. kg; 21.00 BMI Method: General Appearance: No Apparent Distress, Chronically ill HEENT: PERRL/EOMI, Pharynx Normal Neck: Normal Inspection, Supple Respiratory: Lungs Clear, Normal Breath Sounds, No Respiratory Distress Cardiovascular: Regular Rate, Rhythm, No Edema, No Murmur Gastrointestinal: Normal Bowel Sounds, Soft, Distended; No Guarding Extremity: Normal Inspection, Non Tender, No Pedal Edema Neurologic/Psychiatric: Alert, No Motor/Sensory Deficits Skin: Warm/Dry, Jaundice Lymphatic: No Adenopathy Results Results/Procedures Labs Laboratory Tests 05/29/20 11:15 05/29/20 18:45 05/29/20 21:50 05/30/20 04:55 05/30/20 10:58 Patient resulted labs reviewed. Imaging: Reviewed Imaging Report Assessment/Plan Admission Diagnosis Acute blood loss anemia Admission Status: Inpatient Order (span 2 midnights) Reason for Inpatient Admission: GI bleeding requiring endoscopic evaluation and medical management Assessment and Plan Acute blood loss anemia Hematemesis Upper GI bleeding Possible variceal bleed History of peptic ulcer Likely decompensated alcoholic cirrhosis Lactic acidosis Acute kidney injury Hgb 5.9 on arrival 2 units PRBC ordered Monitor on telemetry IV PPI BID Octreotide IV fluids Surgery consulted, appreciate assistance Monitor hemoglobin closely Rocephin for SBP prophylaxis DVT prophylaxis: held due to GI bleed Diagnosis/Problems Diagnosis/Problems (1) WILLIS (acute kidney injury) (2) Lactic acidosis (3) Hematemesis (4) Alcohol dependence (5) Current smoker (6) GI bleed Status: Acute Qualifiers: GI bleed type/associated pathology: gastrointestinal hemorrhage with hematemesis Qualified Codes: K92.0 - Hematemesis (7) Anemia Status: Acute Clinical Quality Measures DVT/VTE Risk/Contraindication: Risk Factor Score Per Nursin RFS Level Per Nursing on Admit: 4+=Very High Contraindications-Pharm: Other *list below* Other: PT IS GI BLEED- NO VTE MEDICATION ORDERED AT THIS TIME. WILL USE SCD'S. SAADIA GIBSON MD May 30, 2020 15:44
--- NOTE | 2020-05-30 15:53 | Progress Note - Hospitalist ---
Subjective HPI/CC On Admission Date Seen by Provider: May 30, 2020 Time Seen by Provider: 09:10 Dustin Solares is a 59 year old male with H alcohol dependence who presented with hematemesis. He is a poor historian. He reports that he has been having bloody emesis and melena for an undetermined amount of time. He reports drinking every day. He denies fevers and chills. He denies trouble breathing and cough. He reports abdominal swelling. Subjective/Events-last exam He is intubated and sedated. Focused Exam Lactate Level 05/29/20 21:50: Lactic Acid Level 3.13*H 05/30/20 04:55: Lactic Acid Level 2.48*H 05/30/20 09:14: Lactic Acid Level 2.39*H Time of Focused Exam: 14:30 Objective Exam Vital Signs Vital Signs Date Time Temp Pulse Resp B/P (MAP) Pulse Ox O2 Delivery O2 Flow Rate FiO2 05/30/20 15:30 100 24 90 30 05/30/20 12:00 36.6 05/30/20 11:00 70/44 (53) Mechanical Ventilator 40.00 Capillary Refill : Less Than 3 Seconds General Appearance: No Apparent Distress, Chronically ill, Other (intubated and sedated) Respiratory: Lungs Clear, Normal Breath Sounds, No Respiratory Distress Cardiovascular: No Edema, Systolic Murmur, Tachycardia Gastrointestinal: Normal Bowel Sounds, Soft, Distended Extremity: Normal Inspection, Non Tender, No Pedal Edema Neurologic/Psychiatric: Other (sedated) Skin: Warm/Dry, Jaundice Results/Procedures Lab Laboratory Tests 05/29/20 18:45 05/29/20 21:50 05/30/20 04:55 05/30/20 10:58 Patient resulted labs reviewed. Imaging: Reviewed Imaging Report Assessment/Plan Assessment and Plan Assess & Plan/Chief Complaint Acute blood loss anemia Hematemesis Upper GI bleeding Possible variceal bleed History of peptic ulcer Likely decompensated alcoholic cirrhosis Hepatic encephalopathy Lactic acidosis Acute kidney injury Endotracheally intubated Hgb 7.7, improved post-transfusion s/p 2 units PRBC Continue IV PPI BID Continue Octreotide Continue IV fluids Surgery consulted, appreciate assistance Monitor hemoglobin closely Rocephin for SBP prophylaxis Begin Lactulose DVT prophylaxis: held due to GI bleed Diagnosis/Problems Diagnosis/Problems (1) WILLIS (acute kidney injury) (2) Lactic acidosis (3) Hematemesis (4) Alcohol dependence (5) Current smoker (6) GI bleed Status: Acute Qualifiers: GI bleed type/associated pathology: gastrointestinal hemorrhage with hematem esis Qualified Codes: K92.0 - Hematemesis (7) Anemia Status: Acute Clinical Quality Measures DVT/VTE Risk/Contraindication: Risk Factor Score Per Nursin RFS Level Per Nursing on Admit: 4+=Very High Contraindications-Pharm: Other *list below* Other: PT IS GI BLEED- NO VTE MEDICATION ORDERED AT THIS TIME. WILL USE SCD'S. IRAIS GIBSON MD May 30, 2020 15:53
[2020-05-30] MEDS ORDERED: OCTREOTIDE IV SCH ×2 (16:00)
[2020-05-30] MEDS ORDERED: SODIUM CHLORIDE IV ONE ×2 (16:00)
[2020-05-30] MEDS ORDERED: OCTREOTIDE IV ONE ×2 (16:00)
[2020-05-30] MEDS ORDERED: SODIUM CHLORIDE IV SCH ×2 (16:00)
--- NOTE | 2020-05-30 16:50 | NUR ---
THIS NURSE ATTEMPTED TO NOTIFY DR LEONARD ABOUT PT CONDITION. WILL TRY AGAIN LATER.
--- NOTE | 2020-05-30 17:24 | NUR ---
DR LEONARD AT BEDSIDE. THIS NURSE CLARIFIED WITH DR LEONARD PT CAN HAVE LACTULOSE VIA OGT. PT IS TO HAVE AN EGD TOMORROW. DR GIBSON NOTIFIED.
[2020-05-30] MEDS: LACTULOSE SYRUP 10GM/15ML (ENULOSE) 30ML UDC PO SCH ×2 (17:27→20:00)
--- NOTE | 2020-05-30 19:30 | NUR ---
THIS NURSE UPDATED JENNIFER GF OF PT CONDITION.
[2020-05-30] MEDS: VASOPRESSIN INJECTION 20 UNIT in NS (IVPB) 100 ML IV SCH (20:18)
[2020-05-30] MEDS: DexMEDEtomidine PRE MIX 100 ML IV SCH (21:13)
[2020-05-31 01:04] VITALS: BP 113/74
[2020-05-31] MEDS: PROPOFOL DRIP (ICU) 100 ML IV SCH ×5 (02:42→21:08)
[2020-05-31 03:02] LABS: BASOPHILS # (AUTO) 0.1 10^3/uL (0.0-0.1); BASOPHILS % (AUTO) 1 % (0-10); EOSINOPHILS # (AUTO) 0.1 10^3/uL (0.0-0.3); EOSINOPHILS % (AUTO) 1 % (0-10); HEMATOCRIT 24 % (40-54); HEMOGLOBIN 8.4 g/dL (13.3-17.7); LYMPHOCYTES # (AUTO) 4.1 10^3/uL (1.0-4.0); LYMPHOCYTES % (AUTO) 25 % (12-44); MEAN CORPUSCULAR HEMOGLOBIN 31 pg (25-34); MEAN CORPUSCULAR HGB CONC 35 g/dL (32-36); MEAN CORPUSCULAR VOLUME 88 fL (80-99); MEAN PLATELET VOLUME 10.8 fL (9.0-12.2); MONOCYTES # (AUTO) 2.3 10^3/uL (0.0-1.0); MONOCYTES % (AUTO) 14 % (0-12); NEUTROPHILS # (AUTO) 9.6 10^3/uL (1.8-7.8); NEUTROPHILS % (AUTO) 59 % (42-75); PLATELET COUNT 121 10^3/uL (130-400); WHITE BLOOD COUNT 16.3 10^3/uL (4.3-11.0)
[2020-05-31 03:03] LABS: CHLORIDE 113 MMOL/L (98-107); POTASSIUM 3.6 MMOL/L (3.6-5.0); SODIUM 136 MMOL/L (135-145)
[2020-05-31 03:04] LABS: CALCIUM 6.3 MG/DL (8.5-10.1)
[2020-05-31 03:05] LABS: GLUCOSE 116 MG/DL (70-105)
[2020-05-31 03:06] LABS: CARBON DIOXIDE 19 MMOL/L (21-32)
[2020-05-31 03:08] LABS: PHOSPHORUS 1.4 MG/DL (2.3-4.7)
[2020-05-31 03:09] LABS: CREATININE SERUM 0.77 MG/DL (0.60-1.30); GFR ESTIMATED > 60
[2020-05-31 03:10] LABS: BUN/CREATININE RATIO 43
[2020-05-31 03:11] LABS: MAGNESIUM 1.8 MG/DL (1.6-2.4)
[2020-05-31 03:15] LABS: ABG BASE EXCESS -2.1 MMOL/L (-2.5-2.5); ABG OXYGEN SATURATION 96 % (94-100); ABG PCO2 29 MMHG (35-45); ABG PH 7.48 (7.37-7.43); ABG PO2 76 MMHG (79-93); ABG TCO2 21.8 MMOL/L (21.0-31.0)
[2020-05-31 03:21] LABS: ALLENS TEST POSITIVE; INSPIRED O2 30; PATIENT TEMP 37.3; VENTILATOR YES
[2020-05-31] MEDS: VASOPRESSIN INJECTION 20 UNIT in NS (IVPB) 100 ML IV SCH ×3 (04:04→20:05)
[2020-05-31] MEDS: LACTATED RINGERS 1,000 ML IV SCH ×2 (04:07→12:15)
--- NOTE | 2020-05-31 04:47 | Pulmonary Progress Note ---
Subjective Time Seen by a Provider: 04:42 Subjective/Events-last exam PT is sedated on vent. Sepsis Event Evaluation Height, Weight, BMI Height: '" Weight: lbs. oz. kg; 21.00 BMI Method: Focused Exam Lactate Level 05/30/20 04:55: Lactic Acid Level 2.48*H 05/30/20 09:14: Lactic Acid Level 2.39*H 05/30/20 18:52: Lactic Acid Level 1.36 Time of Focused Exam: 14:30 Exam Exam Vital Signs Date Time Temp Pulse Resp B/P (MAP) Pulse Ox O2 Delivery O2 Flow Rate FiO2 05/31/20 04:04 116/80 05/31/20 03:12 37.3 05/31/20 02:42 102/69 05/31/20 01:04 90 24 94 30 05/31/20 01:00 91 05/31/20 00:58 113/70 05/30/20 23:41 36.9 05/30/20 22:22 98/68 05/30/20 21:39 94/62 05/30/20 20:50 100 24 96 30 05/30/20 20:18 93/56 05/30/20 20:00 100 Mechanical Ventilator 30 05/30/20 19:49 Mechanical Ventilator 30.00 05/30/20 19:44 36.8 05/30/20 19:00 93 05/30/20 18:15 101 24 94 30 05/30/20 18:00 96 23 74/54 (61) 94 Mechanical Ventilator 40.00 05/30/20 17:00 97 24 86/55 (65) 98 Mechanical Ventilator 40.00 05/30/20 16:57 111/72 05/30/20 16:00 93 23 111/72 (85) 96 Mechanical Ventilator 40.00 05/30/20 15:30 100 24 90 30 05/30/20 15:00 90 24 115/70 (85) 97 Mechanical Ventilator 40.00 05/30/20 14:00 96 24 84/56 (65) 98 Mechanical Ventilator 40.00 05/30/20 13:00 98 24 101/54 (70) 99 Mechanical Ventilator 40.00 05/30/20 12:41 102 05/30/20 12:00 36.6 05/30/20 12:00 100 29 94/54 (67) 96 Mechanical Ventilator 40.00 05/30/20 11:54 100 24 100 30 05/30/20 11:00 92 19 70/44 (53) 100 Mechanical Ventilator 40.00 05/30/20 10:23 105/62 05/30/20 10:00 91 23 98/72 (81) 100 Mechanical Ventilator 40.00 05/30/20 10:00 92/53 05/30/20 09:00 92 24 111/42 (65) 100 Mechanical Ventilator 40.00 05/30/20 08:00 101 24 129/86 (100) 100 Mechanical Ventilator 40.00 05/30/20 07:56 36.6 05/30/20 07:45 100 Mechanical Ventilator 40 05/30/20 07:30 36.6 98 24 129/89 100 Mechanical Ventilator 40 05/30/20 07:15 36.5 105 24 113/78 99 Mechanical Ventilator 40 05/30/20 07:00 96 24 148/84 (105) 96 Mechanical Ventilator 40.00 05/30/20 06:55 46/36 05/30/20 06:41 99 05/30/20 06:00 129 16 61/48 (52) 96 Mechanical Ventilator 05/30/20 05:49 123 24 100 40 05/30/20 05:00 106 28 158/90 (112) 91 Mechanical Ventilator I & O 05/31/20 07:00 Intake Total 1450 ml Output Total 950 ml Balance 500 ml Height & Weight Height: '" Weight: lbs. oz. kg; 21.00 BMI Method: General Appearance: No Apparent Distress, Chronically ill, Other (intubated and sedated) HEENT: PERRL/EOMI, Pharynx Normal Neck: Normal Inspection, Supple Respiratory: Lungs Clear, Normal Breath Sounds, No Respiratory Distress Cardiovascular: No Edema, Systolic Murmur, Tachycardia Capillary Refill: Less Than 3 Seconds Peripheral Pulses: 2+ Radial Pulses (R), 2+ Radial Pulses (L) Gastrointestinal: soft, tenderness (Mild tenderness in the left upper quadrant, unable to palpate liver margin) Extremity: Normal Inspection, Non Tender, No Pedal Edema Neurologic/Psychiatric: Other (sedated) Skin: Warm/Dry, Jaundice Lymphatic: No Adenopathy Results Lab Laboratory Tests 05/29/20 11:15 05/29/20 18:45 05/29/20 21:50 05/30/20 04:55 05/30/20 10:58 05/31/20 02:39 Assessment/Plan Assessment/Plan Acute GIB s/p 3 units PRBC -Monitor Hb -Lab and RN is having a difficult time obtaining blood. -1 unit of PRBC on hold. If unable to obtain labs secondary to difficult stick will proceed with transfusion secondary to hypotension and known bleeding. Lab and RN are currently trying to obtain blood. -EICU gave another liter of PRBC last night secondary to acute bleeding and hypotension -start rocephin for ppx -Octreotide -Protonix BID -Plan is for EGD Alcohol dependance -CIWA protocol -Pt has been getting ativan -Precedex was stopped at 115 Hypotension -Levophed and Vasopressin currently Hepatic encpephalopathy with lethargy and agitation -PT may need to be intubated -Check ammonia level -Check ABG -Precedex was stopped secondary to hypotension Metabolic acidosis -Repeat LA - IVF LR Acute renal failure -Monitor OPAL CHAVES DO May 31, 2020 04:47
[2020-05-31] MEDS: OCTREOTIDE DRIP 500 MCG/NS 99 ML IV SCH ×6 (04:49→23:40)
[2020-05-31] MEDS: NOREPINEPHRINE 4 MG/250 ML 250 ML IV SCH ×2 (04:51→15:36)
[2020-05-31 06:35] VITALS: BP 105/71
[2020-05-31 06:44] LABS: INR 1.7 (0.8-1.4); PROTHROMBIN TIME PATIENT 20.6 SEC (12.2-14.7)
--- NOTE | 2020-05-31 08:09 | Diagnostic Imaging Report ---
EXAMINATION: Chest radiograph, portable AP view. DATE: 05/31/2020 4:32 AM INDICATION: 59-year-old male, history of gastrointestinal bleed. Anemia. COMPARISON: May 30, 2020. FINDINGS: The endotracheal tube is approximately 3.3 cm above the amita. The nasogastric tube is in the stomach. Stable overall appearance of the cardiomediastinal silhouette. There is no identified pneumothorax. There is nonspecific left basilar airspace consolidation. There is a right-sided PICC line with tip not well seen. There is material overlying the patient which does limit the exam. IMPRESSION: 1. Unchanged nonspecific left basilar airspace consolidation. 2. Support lines and tubes as above. Dictated by: Dictated on workstation # [id number]
[2020-05-31] MEDS ORDERED: ROCURONIUM 50 MG/5 ML (ZEMURON) VIAL IV ONE (08:41)
[2020-05-31] MEDS: LACTULOSE SYRUP 10GM/15ML (ENULOSE) 30ML UDC PO SCH ×4 (08:57→21:07)
[2020-05-31] MEDS: PANTOPRAZOLE 40 MG (PROTONIX) VIAL IV SCH ×2 (08:57→21:07)
[2020-05-31] MEDS ORDERED: POTASSIUM PHOSPHATE INJ 30 MM in NS (IVPB) 250 ML IV ONE (09:00)
[2020-05-31 09:01] LABS: ABG BASE EXCESS -2.6 MMOL/L (-2.5-2.5); ABG OXYGEN SATURATION 96 % (94-100); ABG PCO2 32 MMHG (35-45); ABG PH 7.43 (7.37-7.43); ABG PO2 78 MMHG (79-93); ABG TCO2 21.9 MMOL/L (21.0-31.0); ALLENS TEST YES-POS; INSPIRED O2 30%; PATIENT TEMP 37.3; VENTILATOR YES
[2020-05-31] MEDS ORDERED: NS IV 500 ML 500 ML ONE (09:39)
--- NOTE | 2020-05-31 09:55 | Conscious Sedation/ASA ---
Conscious Sedation Pre-Proced Time 09:50 ASA Score 4 For ASA 3 and 4: Consider anesthesia and medical clearance. Also, for patients with a history of failed moderate sedation consider anesthesia. Airway Lungs Heart ASA score ASA 1: a normal healthy patient ASA 2: a patient with a mild systemic disease (mid diabetes, controlled hypertension, obesity ASA 3: a patient with a severe systemic disease that limits activity (angina, COPD, prior Myocardial infarction) ASA 4: a patient with an incapacitating disease that is a constant threat to life (CHF, renal failure) ASA 5: a moribund patient not expected to survive 24 hrs. (ruptured aneurysm) ASA 6: a declared brain- patient whose organs are being harvested. For emergent operations, add the letter E after the classification Mallampati Classification Grade 2 Sedation Plan Analgesia, Amnesia, Plan communicated to team members, Discussed options with patient/fam, Discussed risks with patient/fam The patient is an appropriate candidate to undergo the planned procedure, sedation, and anesthesia. The patient immediately re-assessed prior to indication. JOY LEONARD MD May 31, 2020 09:55
--- NOTE | 2020-05-31 09:55 | Progress Note-Pre Operative ---
Pre-Operative Progress Note H&P Reviewed The H&P was reviewed, patient examined and no changes noted. Date Seen by Provider: May 31, 2020 Time Seen by Provider: 09:50 Date H&P Reviewed: May 31, 2020 Time H&P Reviewed: 09:50 Pre-Operative Diagnosis: upper gi bleed JOY LEONARD MD May 31, 2020 09:55
[2020-05-31 10:16] VITALS: BP 105/71
--- NOTE | 2020-05-31 10:39 | Anesthesia-Procedure Note ---
Procedures/Interventions Procedure Start/Stop/Diagnosis Date of Procedure: May 31, 2020 Start Time: 09:55 Referring Physician: Kacie Preprocedural Diagnosis: Resp Failure Brief History Called for ICU A-line consult in ICU 3. Pt sedated on vent. #20g A-line started left wrist after 2 attempts. Site prepped with chlorhexidine. Good blood return. Awaiting A-line cable from RN. Catheter secured with op site and tape. Wrist restraint applied and report to RN. Stop Time: 10:05 Postprocedural Diagnosis: Resp Failure Arterial Line Arterial Line Catheter: 20G Type: Radial Location: Left Procedure: prepped, draped in sterile fashion, patient tolerated procedure well, no immediate complications, post procedure area cleaned, post procedure OLE Callejas CRNA May 31, 2020 10:39
[2020-05-31] MEDS ORDERED: VANCOMYCIN INJECTION 0.1 MG in NS (IVPB) 250 ML IV SCH (11:30)
--- NOTE | 2020-05-31 11:35 | NUR ---
CR 0.77; CR CL > 60; WT 89 KG; VANCO 1750 MG IV BOLUS THEN 1250 MG IV Q12H; TROUGH AFTER 3RD DOSE
[2020-05-31] MEDS ORDERED: VANCOMYCIN 1,750 MG/NS 500 ML IVPB IV NR ×2 (12:00)
[2020-05-31] MEDS: THIAMINE INJECTION 100 MG, FOLIC ACID INJECTION 1 MG, VITAMIN MULTI INJECTION 10 ML, MA... IV SCH ×5 (12:08)
--- NOTE | 2020-05-31 13:08 | Progress Note-Post Operative ---
Post-Operative Progess Note Surgeon (s)/Panel Machine Operator (s) Surgeon JOY LEONARD MD Panel Machine Operator: none Pre-Operative Diagnosis upper gi bleed Post-Operative Diagnosis grade 2 esophageal varices no actively bleeding, reflux esophagitis(stage 2-3), small HH(2cm), moderate severe gastritis. Procedure & Operative Findings Date of Procedure 05/31/20 Procedure Performed/Findings EGD with bx. Anesthesia Type get Estimated Blood Loss Estimated blood loss (mL): minimal Specimens/Packing Specimens Removed antrum, ge jxn JOY LEONARD MD May 31, 2020 13:08
--- NOTE | 2020-05-31 13:26 | OPERATIVE REPORT ---
DATE OF SERVICE: 05/31/2020 ATTENDING AUTOMOBILE RADIO REPAIRER: [facility], [facility]. PREOPERATIVE DIAGNOSIS: Upper gastrointestinal bleed with symptomatic anemia. POSTOPERATIVE DIAGNOSES: Grade II esophageal varices, reflux esophagitis between stage II and III, small hiatal hernia 2 cm in size, moderate to severe gastritis. No active bleeding sources identified. PROCEDURE: Esophagogastroduodenoscopy with biopsy. SURGEON: Joy Leonard MD. ANESTHESIA: General endotracheal. ESTIMATED BLOOD LOSS: Minimal. FINDINGS: Grade II esophageal varices, reflux esophagitis between stage II and III, small hiatal hernia 2 cm in size, moderate to severe gastritis. No active bleeding sources identified. DISPOSITION: The patient tolerated the procedure well. INDICATIONS: The patient is a 59-year-old male who presented to the Emergency Department with hematemesis as well as dark stools. He had stated that this has been going on an intermittent basis for the past several weeks. He did admit to a significant amount of alcohol consumption for years and also did have some abdominal ascites. His hemoglobin on admission was 5.9; however, since being admitted and given two units of packed red blood cells, his hemoglobin has gone up appropriately and is at 8.4 today. DESCRIPTION OF PROCEDURE: The patient remained intubated and sedated and the mouthpiece was applied. The endoscope was placed in the mouth, visualizing the pharynx and hypopharyngeal region. Vocal cords, epiglottis and vallecula identified and appeared to be normal. The endoscope was then gently intubated into the esophageal opening and esophagus insufflated. The endoscope was then advanced to the first, second and third portion of esophagus. At the distal esophagus were grade II esophageal varices, not actively bleeding as well as with no signs of active bleeding. The endoscope was then advanced to the GE junction, reflux esophagitis between stage II and III identified. A biopsy was taken of the GE junction with forceps with visualization of good hemostasis. The endoscope was then advanced in the stomach and endoscope retroflexed, visualizing a small hiatal hernia approximately 2 cm in size. There was a moderate to severe gastritis throughout the stomach and pylorus. No formal ulcerations, polyps, or any neoplasms as well as no active bleeding sources identified. A biopsy was taken of the antrum to rule out H. pylori with visualization of good hemostasis. The endoscope was then advanced through the first and second portion of the duodenum with no ulcerations or any active bleeding sources identified. The endoscope was then slowly withdrawn while taking a second look and suctioning of residual air with no additional findings. The patient tolerated the procedure well. We will recommend continued medical management with a PPI acid clinical specialty rep as well as the octreotide drip. Tube feeds may be started at any time. For the esophageal varices, once stable, permissive hypotension as well as a nonselective beta elly such as propranolol may be used. Job ID: [id number] DocumentID: [id number] Dictated Date: 05/31/2020 13:12:59 Meter And Service Line Inspector Date: 05/31/2020 13:26:33 Dictated By: JOY LEONARD MD
--- NOTE | 2020-05-31 13:41 | NUR ---
Note pt is currently having GI bleed. Pt is not a candidate for EN at this time. Pt may be a candidate for TPN to meet nutrition needs. Will continue to follow and reassess as pt needs, intake, and status change. Cinthia Cole, MS RD LD [phone] cell
[2020-05-31 14:50] VITALS: BP 100/58
[2020-05-31] MEDS: cefTRIAXone FOR IV USE 1,000 MG in WATER (STERILE) FOR INJECTION 10 ML IV SCH (16:52)
[2020-05-31 19:17] VITALS: BP 139/91
[2020-05-31] MEDS: MIDAZOLAM DRIP PRE-MIX 100 ML IV SCH (21:09)
[2020-05-31 22:20] VITALS: BP 139/91
[2020-05-31] MEDS: VANCOMYCIN 1250 MG/NS 250 ML IVPB IV SCH ×2 (23:40)
[2020-05-31] MEDS: DexMEDEtomidine PRE MIX 100 ML IV SCH (23:40)
[2020-06-01] MEDS: LACTATED RINGERS 1,000 ML IV SCH ×4 (02:22→20:57)
[2020-06-01] MEDS: PROPOFOL DRIP (ICU) 100 ML IV SCH ×4 (02:23→20:58)
[2020-06-01 02:27] VITALS: BP 139/91
[2020-06-01] MEDS: NOREPINEPHRINE 4 MG/250 ML 250 ML IV SCH ×3 (03:39→19:14)
[2020-06-01] MEDS: VASOPRESSIN INJECTION 20 UNIT in NS (IVPB) 100 ML IV SCH ×3 (03:44→22:40)
[2020-06-01 03:55] LABS: BASOPHILS # (AUTO) 0.1 10^3/uL (0.0-0.1); BASOPHILS % (AUTO) 1 % (0-10); EOSINOPHILS # (AUTO) 0.3 10^3/uL (0.0-0.3); EOSINOPHILS % (AUTO) 2 % (0-10); HEMATOCRIT 25 % (40-54); HEMOGLOBIN 8.5 g/dL (13.3-17.7); LYMPHOCYTES # (AUTO) 2.7 10^3/uL (1.0-4.0); LYMPHOCYTES % (AUTO) 22 % (12-44); MEAN CORPUSCULAR HEMOGLOBIN 31 pg (25-34); MEAN CORPUSCULAR HGB CONC 34 g/dL (32-36); MEAN CORPUSCULAR VOLUME 90 fL (80-99); MONOCYTES # (AUTO) 2.4 10^3/uL (0.0-1.0); MONOCYTES % (AUTO) 20 % (0-12); NEUTROPHILS # (AUTO) 6.6 10^3/uL (1.8-7.8); NEUTROPHILS % (AUTO) 55 % (42-75); PLATELET COUNT 119 10^3/uL (130-400); WHITE BLOOD COUNT 12.1 10^3/uL (4.3-11.0)
[2020-06-01 04:02] LABS: CHLORIDE 112 MMOL/L (98-107); POTASSIUM 3.5 MMOL/L (3.6-5.0); SODIUM 136 MMOL/L (135-145)
[2020-06-01 04:03] LABS: CALCIUM 6.6 MG/DL (8.5-10.1)
[2020-06-01 04:04] LABS: GLUCOSE 115 MG/DL (70-105); TRIGLYCERIDES 103 MG/DL (<150)
[2020-06-01 04:05] LABS: CARBON DIOXIDE 18 MMOL/L (21-32)
[2020-06-01 04:07] LABS: CREATININE SERUM 0.65 MG/DL (0.60-1.30); GFR ESTIMATED > 60; PHOSPHORUS 2.1 MG/DL (2.3-4.7)
[2020-06-01 04:08] LABS: BUN/CREATININE RATIO 37
[2020-06-01 04:10] LABS: MAGNESIUM 1.8 MG/DL (1.6-2.4)
[2020-06-01] MEDS: MAGNESIUM 1 GM/100 ML IVPB 100 ML IV SCH (04:41)
[2020-06-01] MEDS: KCL 20 MEQ TAB (K-DUR) PO SCH (04:41)
[2020-06-01] MEDS: POTASSIUM CL 10MEQ/50ML IVPB 50 ML IV SCH ×3 (04:41→06:22)
[2020-06-01 05:52] LABS: ABG BASE EXCESS -3.6 MMOL/L (-2.5-2.5); ABG OXYGEN SATURATION 98 % (94-100); ABG PCO2 30 MMHG (35-45); ABG PH 7.44 (7.37-7.43); ABG PO2 88 MMHG (79-93); ABG TCO2 20.9 MMOL/L (21.0-31.0)
[2020-06-01 05:53] LABS: ALLENS TEST ARTLINE; INSPIRED O2 30; PATIENT TEMP 36.8; VENTILATOR YES
[2020-06-01 06:47] VITALS: BP 82/73
[2020-06-01] MEDS: LACTULOSE SYRUP 10GM/15ML (ENULOSE) 30ML UDC PO SCH ×4 (08:03→21:23)
[2020-06-01] MEDS: PANTOPRAZOLE 40 MG (PROTONIX) VIAL IV SCH ×2 (08:03→21:22)
[2020-06-01] MEDS: THIAMINE INJECTION 100 MG, FOLIC ACID INJECTION 1 MG, VITAMIN MULTI INJECTION 10 ML, MA... IV SCH ×5 (08:17)
[2020-06-01 10:27] VITALS: BP 139/91
--- NOTE | 2020-06-01 10:55 | Progress Note ---
Subjective Date Seen by a Provider: Jun 01, 2020 Time Seen by a Provider: 10:30 Subjective/Events-last exam patient stable with stable Hb. on vent/sedated. minimal vent settings at this time. Focused Exam Lactate Level 05/30/20 04:55: Lactic Acid Level 2.48*H 05/30/20 09:14: Lactic Acid Level 2.39*H 05/30/20 18:52: Lactic Acid Level 1.36 Time of Focused Exam: 14:30 Objective Exam Vital Signs Date Time Temp Pulse Resp B/P (MAP) Pulse Ox O2 Delivery O2 Flow Rate FiO2 06/01/20 10:27 68 24 93 25 06/01/20 10:00 67 24 95 Mechanical Ventilator 30.00 06/01/20 09:45 68 24 94 Mechanical Ventilator 30.00 06/01/20 09:30 69 24 93 Mechanical Ventilator 30.00 06/01/20 09:15 69 23 94 Mechanical Ventilator 30.00 06/01/20 09:00 69 24 95 Mechanical Ventilator 30.00 06/01/20 08:45 69 23 96 Mechanical Ventilator 30.00 06/01/20 08:30 67 24 95 Mechanical Ventilator 30.00 06/01/20 08:17 67 137/64 06/01/20 08:15 66 23 95 Mechanical Ventilator 30.00 06/01/20 08:00 36.1 06/01/20 08:00 69 24 95 Mechanical Ventilator 30.00 06/01/20 07:50 98 Mechanical Ventilator 30 06/01/20 07:45 69 24 96 Mechanical Ventilator 30.00 06/01/20 07:30 70 23 95 Mechanical Ventilator 30.00 06/01/20 07:15 67 24 95 Mechanical Ventilator 30.00 06/01/20 07:00 68 06/01/20 07:00 71 24 95 Mechanical Ventilator 30.00 06/01/20 06:47 66 24 95 25 06/01/20 06:00 73 23 90/50 (63) 94 Mechanical Ventilator 30.00 06/01/20 05:00 70 24 102/70 (81) 95 Mechanical Ventilator 30.00 06/01/20 04:00 70 24 109/66 (80) 95 Mechanical Ventilator 30.00 06/01/20 03:44 74 139/91 06/01/20 03:39 74 139/91 12/12/20 03:00 74 24 105/69 (81) 94 Mechanical Ventilator 30.00 06/01/20 02:27 74 24 96 25 06/01/20 02:23 77 139/91 06/01/20 02:00 71 24 127/61 (83) 95 Mechanical Ventilator 30.00 06/01/20 01:00 73 23 105/68 (80) 96 Mechanical Ventilator 30.00 06/01/20 01:00 73 06/01/20 00:30 36.8 06/01/20 00:00 70 22 135/64 (87) 95 Mechanical Ventilator 30.00 05/31/20 23:00 70 23 84/65 (71) 96 Mechanical Ventilator 30.00 05/31/20 22:20 77 24 97 30 05/31/20 22:00 72 20 90/67 (75) 97 Mechanical Ventilator 30.00 05/31/20 21:09 78 24 139/91 05/31/20 21:08 78 139/91 05/31/20 21:00 68 23 85/66 (72) 96 Mechanical Ventilator 30.00 05/31/20 20:05 78 139/91 05/31/20 20:00 96 Mechanical Ventilator 30 05/31/20 20:00 73 20 81/60 (67) 98 Mechanical Ventilator 30.00 05/31/20 19:24 36.6 05/31/20 19:17 78 24 97 30 05/31/20 19:00 73 05/31/20 19:00 73 16 79/98 (92) 98 Mechanical Ventilator 30.00 05/31/20 18:00 70 19 115/64 (81) 96 Mechanical Ventilator 30.00 05/31/20 17:00 78 23 116/65 (82) 96 Mechanical Ventilator 30.00 05/31/20 16:47 74 138/70 05/31/20 16:00 77 23 114/60 (78) 94 Mechanical Ventilator 30.00 05/31/20 16:00 36.8 05/31/20 15:36 80 98/55 05/31/20 15:00 75 23 119/63 (81) 93 Mechanical Ventilator 30.00 05/31/20 14:50 77 26 95 30 05/31/20 14:00 78 24 99/57 (71) 93 Mechanical Ventilator 30.00 05/31/20 13:00 84 05/31/20 13:00 85 24 142/74 (96) 96 Mechanical Ventilator 30.00 05/31/20 12:08 78 93/52 05/31/20 12:00 80 23 91/51 (64) 95 Mechanical Ventilator 30.00 05/31/20 11:52 36.8 05/31/20 11:11 87 147/98 05/31/20 11:00 89 24 139/91 (107) 94 Mechanical Ventilator 30.00 I & O 06/01/20 07:00 Output Total 1110 ml Balance -1110 ml Capillary Refill : Less Than 3 Seconds General Appearance: No Apparent Distress Neck: Normal Inspection Respiratory: Decreased Breath Sounds, Wheezing Cardiovascular: Regular Rate, Rhythm Gastrointestinal: normal bowel sounds, non tender, soft Extremity: Normal Capillary Refill Skin: Normal Color Lymphatic: No Adenopathy Results Lab Laboratory Tests 05/31/20 11:22: Glucometer 120H 05/31/20 17:21: Glucometer 136H 05/31/20 23:59: Glucometer 139H 06/01/20 03:40: White Blood Count 12.1H, Red Blood Count 2.79L, Hemoglobin 8.5L, Hematocrit 25L, Mean Corpuscular Volume 90, Mean Corpuscular Hemoglobin 31, Mean Corpuscular Hemoglobin Concent 34, Red Cell Distribution Width 20.2H, Platelet Count 119L, Mean Platelet Volume 11.0, Immature Granulocyte % (Auto) 1, Neutrophils (%) (Auto) 55, Lymphocytes (%) (Auto) 22, Monocytes (%) (Auto) 20H, Eosinophils (%) (Auto) 2, Basophils (%) (Auto) 1, Neutrophils # (Auto) 6.6, Lymphocytes # (Auto) 2.7, Monocytes # (Auto) 2.4H, Eosinophils # (Auto) 0.3, Basophils # (Auto) 0.1, Immature Granulocyte # (Auto) 0.1, Sodium Level 136, Potassium Level 3.5L, Chloride Level 112H, Carbon Dioxide Level 18L, Anion Gap 6, Blood Urea Nitrogen 24H, Creatinine 0.65, Estimat Glomerular Filtration Rate > 60, BUN/Creatinine Ratio 37, Glucose Level 115H, Calcium Level 6.6L, Phosphorus Level 2.1L, Magnesium Level 1.8, Triglycerides Level 103 06/01/20 05:40: Blood Gas Puncture Site LEFT ARTLINE, Blood Gas Patient Temperature 36.8, Arterial Blood pH 7.44H, Arterial Blood Partial Pressure CO2 30L, Arterial Blood Partial Pressure O2 88, Arterial Blood HCO3 20L, Arterial Blood Total CO2 20.9L, Arterial Blood Oxygen Saturation 98, Arterial Blood Base Excess -3.6L, German Test ARTLINE, Blood Gas Ventilator Setting YES, Blood Gas Inspired Oxygen 30 Microbiology 05/30/20 Gram Stain - Final, Complete 05/30/20 Sputum Culture - Final, Complete Usual upper respiratory josé miguel 05/29/20 Blood Culture - Preliminary, Resulted Enterococcus faecalis Assessment/Plan Assessment/Plan Assess & Plan/Chief Complaint sepsis, resp failure, anemia secondary severe gastritis, liver cirrhosis vent ween per ICU. cont PPI. may start tube feeds at any time. Clinical Quality Measures DVT/VTE Risk/Contraindication: Risk Factor Score Per Nursin RFS Level Per Nursing on Admit: 4+=Very High Contraindications-Pharm: Other *list below* Other: PT IS GI BLEED- NO VTE MEDICATION ORDERED AT THIS TIME. WILL USE SCD'S. JOY LEONARD MD Jun 01, 2020 10:55
[2020-06-01] MEDS: OCTREOTIDE DRIP 500 MCG/NS 99 ML IV SCH ×4 (11:05→20:57)
--- NOTE | 2020-06-01 11:59 | Progress Note - Hospitalist ---
Subjective HPI/CC On Admission Date Seen by Provider: Jun 01, 2020 Time Seen by Provider: 11:52 Helio Solares is a 59 year old male with H alcohol dependence who presented with hematemesis. He is a poor historian. He reports that he has been having bloody emesis and melena for an undetermined amount of time. He reports drinking every day. He denies fevers and chills. He denies trouble breathing and cough. He reports abdominal swelling. Subjective/Events-last exam Patient sedated on vent. Nurse reports no blood per NG no bowel movement since yesterday which did reveal some red blood. Focused Exam Lactate Level 05/30/20 04:55: Lactic Acid Level 2.48*H 05/30/20 09:14: Lactic Acid Level 2.39*H 05/30/20 18:52: Lactic Acid Level 1.36 Time of Focused Exam: 14:30 Objective Exam Vital Signs Vital Signs Date Time Temp Pulse Resp B/P (MAP) Pulse Ox O2 Delivery O2 Flow Rate FiO2 06/01/20 11:00 68 24 93 Mechanical Ventilator 30.00 06/01/20 10:27 25 06/01/20 08:00 36.1 Capillary Refill : Less Than 3 Seconds General Appearance: No Apparent Distress, Chronically ill Respiratory: Normal Breath Sounds, No Accessory Muscle Use, No Respiratory Distress, Other Cardiovascular: Regular Rate, Rhythm, No Edema, No Gallop, No JVD, No Murmur, Normal Peripheral Pulses Gastrointestinal: Distended (Chest clear anteriorly some diminished breath sounds in the left base no wheezes rales or rhonchi. Relatively soft no reaction to palpation) Results/Procedures Lab Laboratory Tests 06/01/20 03:40 Patient resulted labs reviewed. Imaging: Reviewed Imaging Report Assessment/Plan Assessment and Plan Assess & Plan/Chief Complaint Acute blood loss anemia Hematemesis Upper GI bleeding Possible variceal bleed On EGD per Dr. LEONARD no evidence for blood the upper GI tract with a grade 2 esophageal varices no ulceration noted History of peptic ulcer Likely decompensated alcoholic cirrhosis Lactic acidosis Acute kidney injury Hgb 5.9 on arrival 2 units PRBC ordered Monitor on telemetry IV PPI BID Octreotide IV fluids Surgery consulted, appreciate assistance Monitor hemoglobin closely Rocephin for SBP prophylaxis DVT prophylaxis: held due to GI bleed Blood count stable continue to monitor attempt to wean norepinephrine drip current blood pressures 1 30-1 40 systolic. Nurse reports earlier attempt with similar blood pressures was not successful. Left lower lobe infiltrate reported respiratory failure and agitation necessitating intubation questionable aspiration. Critical Care Critically Ill Patient Clinical Quality Measures DVT/VTE Risk/Contraindication: Risk Factor Score Per Nursin RFS Level Per Nursing on Admit: 4+=Very High Contraindications-Pharm: Other *list below* Other: PT IS GI BLEED- NO VTE MEDICATION ORDERED AT THIS TIME. WILL USE SCD'S. HELIO NOYOLA MD Jun 01, 2020 11:59
[2020-06-01] MEDS: VANCOMYCIN 1250 MG/NS 250 ML IVPB IV SCH ×4 (14:29→23:58)
[2020-06-01 14:34] VITALS: BP 139/91
[2020-06-01] MEDS: cefTRIAXone FOR IV USE 1,000 MG in WATER (STERILE) FOR INJECTION 10 ML IV SCH (16:01)
[2020-06-01 18:59] VITALS: BP 139/91
[2020-06-01 22:17] VITALS: BP 139/91
[2020-06-01] MEDS: DexMEDEtomidine PRE MIX 100 ML IV SCH (22:25)
[2020-06-01] MEDS ORDERED: TROUGH ORDER-PHARMACY XX NR (23:00)
[2020-06-02 02:02] LABS: ABG BASE EXCESS -4.1 MMOL/L (-2.5-2.5); ABG OXYGEN SATURATION 94 % (94-100); ABG PCO2 27 MMHG (35-45); ABG PH 7.46 (7.37-7.43); ABG PO2 53 MMHG (79-93); ABG TCO2 20.8 MMOL/L (21.0-31.0)
[2020-06-02 02:03] LABS: ALLENS TEST ARTLINE; INSPIRED O2 25; PATIENT TEMP 36.6; VENTILATOR YES
[2020-06-02 02:08] LABS: CHLORIDE 110 MMOL/L (98-107)
[2020-06-02 02:09] LABS: BASOPHILS # (AUTO) 0.1 10^3/uL (0.0-0.1); BASOPHILS % (AUTO) 1 % (0-10); EOSINOPHILS # (AUTO) 0.3 10^3/uL (0.0-0.3); EOSINOPHILS % (AUTO) 3 % (0-10); HEMATOCRIT 26 % (40-54); HEMOGLOBIN 8.5 g/dL (13.3-17.7); LYMPHOCYTES # (AUTO) 1.6 10^3/uL (1.0-4.0); LYMPHOCYTES % (AUTO) 16 % (12-44); MEAN CORPUSCULAR HEMOGLOBIN 31 pg (25-34); MEAN CORPUSCULAR HGB CONC 33 g/dL (32-36); MEAN CORPUSCULAR VOLUME 93 fL (80-99); MEAN PLATELET VOLUME 11.3 fL (9.0-12.2); MONOCYTES # (AUTO) 1.7 10^3/uL (0.0-1.0); MONOCYTES % (AUTO) 18 % (0-12); NEUTROPHILS # (AUTO) 6.2 10^3/uL (1.8-7.8); NEUTROPHILS % (AUTO) 62 % (42-75); PLATELET COUNT 108 10^3/uL (130-400); POTASSIUM 3.6 MMOL/L (3.6-5.0); SODIUM 134 MMOL/L (135-145); WHITE BLOOD COUNT 9.9 10^3/uL (4.3-11.0)
[2020-06-02 02:10] LABS: CALCIUM 6.5 MG/DL (8.5-10.1); GLUCOSE 110 MG/DL (70-105)
[2020-06-02 02:12] LABS: CARBON DIOXIDE 18 MMOL/L (21-32)
[2020-06-02 02:14] LABS: CREATININE SERUM 0.61 MG/DL (0.60-1.30); GFR ESTIMATED > 60; PHOSPHORUS 2.3 MG/DL (2.3-4.7)
[2020-06-02 02:15] LABS: BUN/CREATININE RATIO 30
[2020-06-02 02:17] LABS: MAGNESIUM 1.6 MG/DL (1.6-2.4)
[2020-06-02] MEDS: NOREPINEPHRINE 4 MG/250 ML 250 ML IV SCH ×2 (02:35→18:40)
--- NOTE | 2020-06-02 02:46 | NUR ---
CALLED [facility] AND INFORMED THEM OF PATIENT'S LOW URINE OUTPUT-100ML OVER FOUR HOURS. RECEIVED ORDER FOR 500ML NS BOLUS.
[2020-06-02] MEDS: POTASSIUM CL 10MEQ/50ML IVPB 50 ML IV SCH ×3 (02:48→04:07)
[2020-06-02] MEDS: MAGNESIUM 1 GM/100 ML IVPB 100 ML IV SCH ×3 (02:48→06:35)
[2020-06-02] MEDS: KCL 20 MEQ TAB (K-DUR) PO SCH (02:48)
[2020-06-02] MEDS: NS IV 500 ML 500 ML IV SCH ×2 (03:06→22:23)
--- NOTE | 2020-06-02 04:49 | NUR ---
CALLED [facility]-ICU AND REPORTED 40ML OF OUTPUT FROM THE NS BOLUS. ALSO TOLD PROVIDER THAT PATIENT'S ABD IS EXTREMELY DISTENDED AND FIRM, THAT BLADDER SCAN WAS COMPLETED ON PATIENT AND THAT FARFAN WAS FLUSHED. RECEIVED ORDER TO OBTAIN KUB.
[2020-06-02] MEDS: LACTATED RINGERS 1,000 ML IV SCH ×3 (05:06→18:10)
[2020-06-02] MEDS: PROPOFOL DRIP (ICU) 100 ML IV SCH ×2 (05:13→22:37)
[2020-06-02] MEDS: OCTREOTIDE DRIP 500 MCG/NS 99 ML IV SCH ×4 (06:36→16:34)
[2020-06-02 07:00] VITALS: BP 112/53
--- NOTE | 2020-06-02 07:16 | NUR ---
DR. LEONARD NOTIFIED OF PATIENT'S FIRM ABD, DECREASED URINE OUTPUT AND THAT [facility] ORDERED A KUB THIS MORNING.
--- NOTE | 2020-06-02 07:27 | Diagnostic Imaging Report ---
INDICATION: Distended abdomen. FINDINGS: Supine and upright views of the abdomen demonstrate normal bowel gas pattern. Orogastric tube has tip in the gastric antrum. A small left pleural effusion is present. IMPRESSION: The bowel gas pattern appears normal. Dictated by: Dictated on workstation # [id number]
[2020-06-02] MEDS: LACTULOSE SYRUP 10GM/15ML (ENULOSE) 30ML UDC PO SCH ×4 (07:46→20:00)
[2020-06-02] MEDS: VASOPRESSIN INJECTION 20 UNIT in NS (IVPB) 100 ML IV SCH ×2 (07:46→15:55)
[2020-06-02] MEDS: PANTOPRAZOLE 40 MG (PROTONIX) VIAL IV SCH ×2 (07:46→20:00)
[2020-06-02] MEDS ORDERED: VANCOMYCIN INJECTION 0.1 MG in NS (IVPB) 250 ML IV SCH (08:15)
--- NOTE | 2020-06-02 08:33 | Diagnostic Imaging Report ---
CHEST 1 VIEW, AP/PA ONLY Indication: GI bleed, anemia Comparison: 05/31/2020 Findings: ET tube has been advanced and now has tip 2 cm above the amita. Stable enteric tube and right PICC. Small left pleural effusion and left basilar opacities are unchanged. No pneumothorax. Stable cardiomediastinal silhouette. Impression: 1. ET tube has been advanced and now has tip 2 cm above the amita, consider approximately 1 cm of retraction. 2. Other support devices are stable. 3. Unchanged small left pleural effusion and left basilar opacities. Dictated by: Dictated on workstation # [id number]
--- NOTE | 2020-06-02 10:07 | Progress Note ---
Subjective Date Seen by a Provider: Jun 02, 2020 Time Seen by a Provider: 10:00 Subjective/Events-last exam on vent/sedated. FiO2 at 25% with adequate abg. has developed significant anasarca and possible ascites. Focused Exam Lactate Level 05/30/20 18:52: Lactic Acid Level 1.36 Time of Focused Exam: 14:30 Objective Exam Vital Signs Date Time Temp Pulse Resp B/P (MAP) Pulse Ox O2 Delivery O2 Flow Rate FiO2 06/02/20 08:00 68 24 97/70 (80) 95 Mechanical Ventilator 25.00 06/02/20 07:46 72 107/55 06/02/20 07:45 69 23 93/68 (77) 06/02/20 07:45 95 Mechanical Ventilator 30 06/02/20 07:30 70 24 92/65 (73) 06/02/20 07:24 36.5 06/02/20 07:15 71 24 90/64 (73) 94 06/02/20 07:00 73 24 93 30 06/02/20 07:00 71 06/02/20 07:00 72 23 93/65 (75) 91 Mechanical Ventilator 25.00 06/02/20 06:45 73 24 91/65 (72) 91 06/02/20 06:30 71 23 103/70 (84) 92 06/02/20 06:15 75 23 108/71 (87) 93 06/02/20 06:00 82 25 93 Mechanical Ventilator 25.00 06/02/20 05:13 78 113/79 06/02/20 05:00 78 18 93 Mechanical Ventilator 25.00 06/02/20 04:01 96 24 96 25 06/02/20 04:00 78 24 93 Mechanical Ventilator 25.00 06/02/20 04:00 36.9 06/02/20 03:00 78 23 93 Mechanical Ventilator 25.00 06/02/20 02:35 79 92/60 06/02/20 02:00 83 20 91 Mechanical Ventilator 25.00 06/02/20 01:00 86 20 91 Mechanical Ventilator 25.00 06/02/20 01:00 86 06/02/20 00:00 36.8 06/02/20 00:00 85 24 93 Mechanical Ventilator 25.00 06/01/20 23:00 90 24 94 Mechanical Ventilator 25.00 06/01/20 22:40 75 85/78 06/01/20 22:17 73 24 96 25 06/01/20 22:00 74 24 94 Mechanical Ventilator 25.00 06/01/20 21:00 74 24 94 Mechanical Ventilator 25.00 06/01/20 20:58 72 85/77 06/01/20 20:00 95 Mechanical Ventilator 25 06/01/20 20:00 74 24 94 Mechanical Ventilator 25.00 06/01/20 19:42 36.6 06/01/20 19:14 74 77/70 06/01/20 19:00 70 06/01/20 19:00 72 24 94 Mechanical Ventilator 25.00 06/01/20 18:59 73 24 97 25 06/01/20 18:00 68 24 94 Mechanical Ventilator 30.00 06/01/20 17:45 69 24 94 Mechanical Ventilator 30.00 06/01/20 17:30 67 23 94 Mechanical Ventilator 30.00 06/01/20 17:15 68 23 93 Mechanical Ventilator 30.00 06/01/20 17:00 68 23 94 Mechanical Ventilator 30.00 06/01/20 16:45 68 24 94 Mechanical Ventilator 30.00 06/01/20 16:30 68 23 94 Mechanical Ventilator 30.00 06/01/20 16:15 68 23 94 Mechanical Ventilator 30.00 06/01/20 16:00 73 23 94 Mechanical Ventilator 30.00 06/01/20 15:45 68 23 94 Mechanical Ventilator 30.00 06/01/20 15:30 69 23 94 Mechanical Ventilator 30.00 06/01/20 15:15 70 24 95 Mechanical Ventilator 30.00 06/01/20 15:00 72 24 95 Mechanical Ventilator 30.00 06/01/20 14:45 78 23 95 Mechanical Ventilator 30.00 06/01/20 14:43 76 128/62 06/01/20 14:34 78 24 94 25 06/01/20 14:30 77 24 94 Mechanical Ventilator 30.00 06/01/20 14:29 76 110/55 06/01/20 14:15 80 23 94 Mechanical Ventilator 30.00 06/01/20 14:00 80 19 94 Mechanical Ventilator 30.00 06/01/20 13:45 76 24 94 Mechanical Ventilator 30.00 06/01/20 13:32 75 87/46 06/01/20 13:30 75 24 94 Mechanical Ventilator 30.00 06/01/20 13:15 71 24 94 Mechanical Ventilator 30.00 06/01/20 13:00 69 24 94 Mechanical Ventilator 30.00 06/01/20 13:00 68 06/01/20 12:45 70 23 92 Mechanical Ventilator 30.00 06/01/20 12:30 68 23 93 Mechanical Ventilator 30.00 06/01/20 12:15 68 24 93 Mechanical Ventilator 30.00 06/01/20 12:00 36.4 06/01/20 12:00 68 24 93 Mechanical Ventilator 30.00 06/01/20 11:45 67 23 93 Mechanical Ventilator 30.00 06/01/20 11:30 68 24 94 Mechanical Ventilator 30.00 06/01/20 11:15 68 24 93 Mechanical Ventilator 30.00 06/01/20 11:00 68 24 93 Mechanical Ventilator 30.00 06/01/20 10:59 68 107/54 06/01/20 10:45 68 24 92 Mechanical Ventilator 30.00 06/01/20 10:30 69 24 92 Mechanical Ventilator 30.00 06/01/20 10:27 68 24 93 25 06/01/20 10:15 68 23 93 Mechanical Ventilator 30.00 I & O 06/02/20 07:00 Intake Total 1753.5 ml Output Total 1125 ml Balance 628.5 ml Capillary Refill : Less Than 3 Seconds General Appearance: No Apparent Distress HEENT: Normal ENT Inspection Neck: Full Range of Motion Respiratory: Rhonci, Wheezing Cardiovascular: Regular Rate, Rhythm Gastrointestinal: soft, distended Extremity: Normal Capillary Refill Skin: Normal Color Lymphatic: No Adenopathy Results Lab Laboratory Tests 06/01/20 11:13: Glucometer 139H 06/01/20 18:08: Glucometer 120H 06/01/20 23:10: Vancomycin Level Trough 11.8 06/02/20 00:53: Glucometer 98 06/02/20 01:45: Blood Gas Puncture Site LEFT ARTLINE, Blood Gas Patient Temperature 36.6, Arterial Blood pH 7.46H, Arterial Blood Partial Pressure CO2 27L, Arterial Blood Partial Pressure O2 53L, Arterial Blood HCO3 20L, Arterial Blood Total CO2 20.8L , Arterial Blood Oxygen Saturation 94, Arterial Blood Base Excess -4.1L, German Test ARTLINE, Blood Gas Ventilator Setting YES, Blood Gas Inspired Oxygen 25 06/02/20 01:53: White Blood Count 9.9, Red Blood Count 2.79L, Hemoglobin 8.5L, Hematocrit 26L, Mean Corpuscular Volume 93, Mean Corpuscular Hemoglobin 31, Mean Corpuscular Hemoglobin Concent 33, Red Cell Distribution Width 20.7H, Platelet Count 108L, Mean Platelet Volume 11.3, Immature Granulocyte % (Auto) 1, Neutrophils (%) (Auto) 62, Lymphocytes (%) (Auto) 16, Monocytes (%) (Auto) 18H, Eosinophils (%) (Auto) 3, Basophils (%) (Auto) 1, Neutrophils # (Auto) 6.2, Lymphocytes # (Auto) 1.6, Monocytes # (Auto) 1.7H, Eosinophils # (Auto) 0.3, Basophils # (Auto) 0.1, Immature Granulocyte # (Auto) 0.1, Sodium Level 134L, Potassium Level 3.6, Chloride Level 110H, Carbon Dioxide Level 18L, Anion Gap 6, Blood Urea Nitrogen 18, Creatinine 0.61, Estimat Glomerular Filtration Rate > 60, BUN/Creatinine Ratio 30, Glucose Level 110H, Calcium Level 6.5L, Phosphorus Level 2.3, Magnesium Level 1.6 06/02/20 08:40: Ammonia 61H Microbiology 05/30/20 Gram Stain - Final, Complete 05/30/20 Sputum Culture - Final, Complete Usual upper respiratory josé miguel 05/29/20 Blood Culture - Final, Complete Enterococcus faecalis Assessment/Plan Assessment/Plan Assess & Plan/Chief Complaint sepsis, resp failure, anemia secondary severe gastritis, liver cirrhosis vent ween per ICU. cont PPI. may start tube feeds at any time. abd u/s for ascites. Clinical Quality Measures DVT/VTE Risk/Contraindication: Risk Factor Score Per Nursin RFS Level Per Nursing on Admit: 4+=Very High Contraindications-Pharm: Other *list below* Other: PT IS GI BLEED- NO VTE MEDICATION ORDERED AT THIS TIME. WILL USE SCD'S. JOY LEONARD MD Jun 02, 2020 10:07
[2020-06-02 10:51] VITALS: BP 127/59
--- NOTE | 2020-06-02 11:40 | Progress Note - Hospitalist ---
Subjective HPI/CC On Admission Date Seen by Provider: Jun 02, 2020 Time Seen by Provider: 07:15 Helio Solares is a 59 year old male with H alcohol dependence who presented with hematemesis. He is a poor historian. He reports that he has been having bloody emesis and melena for an undetermined amount of time. He reports drinking every day. He denies fevers and chills. He denies trouble breathing and cough. He reports abdominal swelling. Subjective/Events-last exam Staff report patient ventilating easily he was sleeping with sedation being held for upcoming pressure support trial through eICU. Staff report no difficulties. His eyes have been open without agitation although he is not following commands. Focused Exam Lactate Level 05/30/20 18:52: Lactic Acid Level 1.36 Time of Focused Exam: 14:30 Objective Exam Vital Signs Vital Signs Date Time Temp Pulse Resp B/P (MAP) Pulse Ox O2 Delivery O2 Flow Rate FiO2 06/02/20 11:00 76 23 109/72 (86) 93 Mechanical Ventilator 25.00 06/02/20 07:45 30 06/02/20 07:24 36.5 Capillary Refill : Less Than 3 Seconds General Appearance: No Apparent Distress Respiratory: Other (Coarse breath sounds without focal consolidative findings no wheezing no evidence for respiratory distress on mechanical ventilation) Cardiovascular: Regular Rate, Rhythm, No Edema, No Gallop, No JVD, No Murmur, Normal Peripheral Pulses Gastrointestinal: Distended Results/Procedures Lab Laboratory Tests 06/02/20 01:53 Patient resulted labs reviewed. Imaging: Reviewed Imaging Report Assessment/Plan Assessment and Plan Assess & Plan/Chief Complaint Acute blood loss anemia Hematemesis Upper GI bleeding Possible variceal bleed On EGD per Dr. LEONARD no evidence for blood the upper GI tract with a grade 2 esophageal varices no ulceration noted History of peptic ulcer Likely decompensated alcoholic cirrhosis Lactic acidosis Acute kidney injury Hgb 5.9 on arrival 2 units PRBC ordered Monitor on telemetry IV PPI BID Octreotide IV fluids Surgery consulted, appreciate assistance Monitor hemoglobin closely Rocephin for SBP prophylaxis DVT prophylaxis: held due to GI bleed Blood count stable continue to monitor attempt to wean norepinephrine drip current blood pressures 1 30-1 40 systolic. Nurse reports earlier attempt with similar blood pressures was not successful. Left lower lobe infiltrate reported respiratory failure and agitation necessitating intubation questionable aspiration.Respiratory status improving pressure support trial being initiated if it goes well possible extubation to follow through eICU. Family debating landmark versus comfort care at home this will be pending whether or not we are able to extubate. Critical Care Critically Ill Patient Clinical Quality Measures DVT/VTE Risk/Contraindication: Risk Factor Score Per Nursin RFS Level Per Nursing on Admit: 4+=Very High Contraindications-Pharm: Other *list below* Other: PT IS GI BLEED- NO VTE MEDICATION ORDERED AT THIS TIME. WILL USE SCD'S. HELIO NOYOLA MD Jun 02, 2020 11:40
[2020-06-02] MEDS: VANCOMYCIN INJECTION 1,500 MG in NS IV 500 ML 500 ML IV SCH ×2 (12:00→23:50)
--- NOTE | 2020-06-02 14:35 | NUR ---
THIS RN UPDATED JENNIFER AT THIS TIME.
--- NOTE | 2020-06-02 14:45 | NUR ---
EICU NOTIFIED OF LOW URINE OUTPUT- 100. SEE EMAR FOR ORDERS.
[2020-06-02 14:56] VITALS: BP 139/81
[2020-06-02] MEDS ORDERED: ALBUMIN 25% 25 GM/100 ML 50 ML IV ONE (15:00)
[2020-06-02] MEDS ORDERED: FUROSEMIDE 40 MG/4 ML INJ (LASIX) IVP ONE (15:00)
[2020-06-02] MEDS: cefTRIAXone FOR IV USE 1,000 MG in WATER (STERILE) FOR INJECTION 10 ML IV SCH (15:14)
[2020-06-02 18:53] VITALS: BP 125/71
--- NOTE | 2020-06-02 21:23 | NUR ---
maggie [place] day shift, reported to this nurse at shift change that sedation had been turned off at 1300. This nurse called teleICU and spoke with at 2122, I updated that ventilator keeps alarming high peak pressure because patient is over breathing the ventilator at times. Patient is still not following any commands. told this nurse to turn the patients sedation that is ordered back on and try a sedation vacation again in the morning.
[2020-06-02] MEDS: DexMEDEtomidine PRE MIX 100 ML IV SCH (22:24)
[2020-06-02] MEDS ORDERED: TROUGH ORDER-PHARMACY XX NR (23:00)
[2020-06-02 23:04] VITALS: BP 106/48
[2020-06-03] MEDS: NOREPINEPHRINE 4 MG/250 ML 250 ML IV SCH ×3 (01:37→21:57)
[2020-06-03] MEDS: OCTREOTIDE DRIP 500 MCG/NS 99 ML IV SCH ×6 (02:21→22:20)
[2020-06-03 02:37] LABS: ABG BASE EXCESS -2.6 MMOL/L (-2.5-2.5); ABG OXYGEN SATURATION 100 % (94-100); ABG PCO2 31 MMHG (35-45); ABG PH 7.45 (7.37-7.43); ABG PO2 161 MMHG (79-93); ABG TCO2 21.8 MMOL/L (21.0-31.0)
[2020-06-03 02:38] LABS: INSPIRED O2 35; PATIENT TEMP 37; VENTILATOR YES
[2020-06-03 02:48] LABS: BASOPHILS # (AUTO) 0.1 10^3/uL (0.0-0.1); BASOPHILS % (AUTO) 0 % (0-10); EOSINOPHILS # (AUTO) 0.3 10^3/uL (0.0-0.3); EOSINOPHILS % (AUTO) 2 % (0-10); HEMATOCRIT 26 % (40-54); HEMOGLOBIN 8.3 g/dL (13.3-17.7); LYMPHOCYTES # (AUTO) 2.1 10^3/uL (1.0-4.0); LYMPHOCYTES % (AUTO) 16 % (12-44); MEAN CORPUSCULAR HEMOGLOBIN 30 pg (25-34); MEAN CORPUSCULAR HGB CONC 32 g/dL (32-36); MEAN CORPUSCULAR VOLUME 95 fL (80-99); MEAN PLATELET VOLUME 11.1 fL (9.0-12.2); MONOCYTES # (AUTO) 2.3 10^3/uL (0.0-1.0); MONOCYTES % (AUTO) 17 % (0-12); NEUTROPHILS # (AUTO) 8.9 10^3/uL (1.8-7.8); NEUTROPHILS % (AUTO) 65 % (42-75); PLATELET COUNT 123 10^3/uL (130-400); WHITE BLOOD COUNT 13.7 10^3/uL (4.3-11.0)
[2020-06-03 02:52] LABS: CHLORIDE 113 MMOL/L (98-107); POTASSIUM 3.9 MMOL/L (3.6-5.0); SODIUM 138 MMOL/L (135-145)
[2020-06-03 02:53] LABS: CALCIUM 6.9 MG/DL (8.5-10.1); GLUCOSE 101 MG/DL (70-105)
[2020-06-03 02:55] LABS: CARBON DIOXIDE 19 MMOL/L (21-32)
[2020-06-03 02:57] LABS: CREATININE SERUM 0.64 MG/DL (0.60-1.30); PHOSPHORUS 2.4 MG/DL (2.3-4.7)
[2020-06-03 02:58] LABS: BUN/CREATININE RATIO 23
[2020-06-03 02:59] LABS: MAGNESIUM 1.6 MG/DL (1.6-2.4)
[2020-06-03 03:07] LABS: GFR ESTIMATED > 60
[2020-06-03] MEDS: POTASSIUM CL 10MEQ/50ML IVPB 50 ML IV SCH (03:19)
[2020-06-03] MEDS: KCL 20 MEQ TAB (K-DUR) PO SCH (03:19)
--- NOTE | 2020-06-03 04:49 | Pulmonary Progress Note ---
Subjective Time Seen by a Provider: 04:44 Sepsis Event Evaluation Height, Weight, BMI Height: '" Weight: lbs. oz. kg; 21.00 BMI Method: Focused Exam Time of Focused Exam: 14:30 Exam Exam Vital Signs Date Time Temp Pulse Resp B/P (MAP) Pulse Ox O2 Delivery O2 Flow Rate FiO2 06/03/20 03:10 96 24 95 35 06/03/20 02:45 37.0 06/03/20 01:00 85 06/02/20 23:04 92 24 95 35 06/02/20 23:00 93 24 95/59 (71) 95 Mechanical Ventilator 25.00 06/02/20 22:37 105 98/67 06/02/20 22:00 105 25 98/67 (77) 94 Mechanical Ventilator 25.00 06/02/20 21:00 113 28 112/68 (83) 97 Mechanical Ventilator 25.00 06/02/20 20:15 104 30 117/70 (87) 93 Mechanical Ventilator 25.00 06/02/20 20:00 95 Mechanical Ventilator 35 06/02/20 20:00 104 30 119/76 (96) 93 Mechanical Ventilator 25.00 06/02/20 19:45 109 29 123/81 (96) 93 Mechanical Ventilator 25.00 06/02/20 19:40 37.2 06/02/20 19:30 106 29 129/75 (97) 94 Mechanical Ventilator 25.00 06/02/20 19:15 103 28 131/79 (89) 94 Mechanical Ventilator 25.00 06/02/20 19:00 96 30 125/71 (85) 98 Mechanical Ventilator 25.00 06/02/20 19:00 96 06/02/20 18:53 98 26 94 35 06/02/20 18:00 86 15 118/84 (96) 93 Mechanical Ventilator 25.00 06/02/20 17:45 86 25 131/78 (84) 92 06/02/20 17:30 86 26 131/83 (108) 92 06/02/20 17:15 85 24 113/79 (96) 88 06/02/20 17:00 85 26 149/93 (117) 94 Mechanical Ventilator 25.00 06/02/20 16:45 80 26 140/95 (120) 95 06/02/20 16:30 83 25 139/88 (108) 95 06/02/20 16:15 82 24 146/84 (107) 95 06/02/20 16:00 81 24 140/97 (117) 95 Mechanical Ventilator 25.00 06/02/20 15:55 81 130/75 06/02/20 15:53 36.0 06/02/20 15:45 80 24 141/86 (103) 94 06/02/20 15:30 82 24 141/89 (115) 95 06/02/20 15:15 82 24 143/89 (117) 95 06/02/20 15:00 78 25 134/84 (95) 96 Mechanical Ventilator 25.00 06/02/20 14:56 82 24 93 35 06/02/20 14:45 80 24 139/81 (107) 95 06/02/20 14:30 80 23 135/85 (116) 96 06/02/20 14:15 79 19 130/89 (114) 95 06/02/20 14:00 77 20 113/81 (96) Mechanical Ventilator 25.00 06/02/20 13:45 78 24 126/74 (88) 95 06/02/20 13:30 79 24 121/79 (96) 95 06/02/20 13:15 76 24 130/79 (86) 95 06/02/20 13:00 77 24 124/79 (100) 95 Mechanical Ventilator 25.00 06/02/20 12:45 79 24 117/81 (97) 06/02/20 12:35 79 06/02/20 12:30 79 24 121/77 (95) 06/02/20 12:15 80 24 115/79 (104) 95 06/02/20 12:00 79 24 120/77 (92) 94 Mechanical Ventilator 25.00 06/02/20 11:56 36.4 06/02/20 11:45 116/78 (96) 06/02/20 11:30 76 24 113/75 (91) 93 06/02/20 11:15 76 23 116/72 (88) 94 06/02/20 11:00 76 23 109/72 (86) 93 Mechanical Ventilator 25.00 06/02/20 10:51 77 24 100 35 06/02/20 10:45 77 24 105/73 (90) 89 06/02/20 10:30 73 24 122/99 (107) 12/13/20 10:15 73 24 109/75 (89) 94 06/02/20 10:00 74 24 115/71 (83) 95 Mechanical Ventilator 25.00 06/02/20 09:45 73 24 114/72 (82) 94 06/02/20 09:30 73 24 114/65 (88) 94 06/02/20 09:15 72 24 110/71 (87) 93 06/02/20 09:00 71 23 109/70 (87) 93 Mechanical Ventilator 25.00 06/02/20 08:45 73 23 106/80 (92) 95 06/02/20 08:30 72 23 108/71 (85) 94 06/02/20 08:15 72 24 99/70 (79) 94 06/02/20 08:00 68 24 97/70 (80) 95 Mechanical Ventilator 25.00 06/02/20 07:46 72 107/55 06/02/20 07:45 69 23 93/68 (77) 06/02/20 07:45 95 Mechanical Ventilator 30 06/02/20 07:30 70 24 92/65 (73) 06/02/20 07:24 36.5 06/02/20 07:15 71 24 90/64 (73) 94 06/02/20 07:00 73 24 93 30 06/02/20 07:00 71 06/02/20 07:00 72 23 93/65 (75) 91 Mechanical Ventilator 25.00 06/02/20 06:45 73 24 91/65 (72) 91 06/02/20 06:30 71 23 103/70 (84) 92 06/02/20 06:15 75 23 108/71 (87) 93 06/02/20 06:00 82 25 93 Mechanical Ventilator 25.00 06/02/20 05:13 78 113/79 06/02/20 05:00 78 18 93 Mechanical Ventilator 25.00 I & O 06/03/20 07:00 Intake Total 1390 ml Output Total 725 ml Balance 665 ml Height & Weight Height: '" Weight: lbs. oz. kg; 21.00 BMI Method: General Appearance: No Apparent Distress HEENT: Normal ENT Inspection Neck: Full Range of Motion Respiratory: Other (Coarse breath sounds without focal consolidative findings no wheezing no evidence for respiratory distress on mechanical ventilation) Cardiovascular: Regular Rate, Rhythm, No Edema, No Gallop, No JVD, No Murmur, Normal Peripheral Pulses Capillary Refill: Less Than 3 Seconds Peripheral Pulses: 2+ Radial Pulses (R), 2+ Radial Pulses (L) Gastrointestinal: soft, distended Extremity: Normal Capillary Refill Neurologic/Psychiatric: Other (sedated) Skin: Normal Color Lymphatic: No Adenopathy Results Lab Laboratory Tests 06/02/20 01:53 06/03/20 02:25 Assessment/Plan Assessment/Plan Acute respiratory failure -Continue ventilator care -D/C propofol and add precedex -Continue to try to wake pt up -EICU managed pt through the weekend -intubated 05/30 Acute GIB s/p 4 units PRBC -Monitor Hb -start rocephin for ppx -Octreotide -Protonix BID -s/p EGD hypotension -Monitor -Will give albumin Alcohol dependance -CIWA protocol -Pt has been getting ativan -Precedex was stopped at 115 Hypotension -Levophed and Vasopressin currently off -Monitor Hepatic encpephalopathy with lethargy and agitation -PT may need to be intubated -Check ammonia level -Start rifaxamine Metabolic acidosis - IVF LR Acute renal failure -Monitor OPAL CHAVES DO Jun 03, 2020 04:49
[2020-06-03] MEDS: DexMEDEtomidine PRE MIX 100 ML IV SCH ×3 (05:19→22:20)
[2020-06-03] MEDS: MAGNESIUM 1 GM/100 ML IVPB 100 ML IV SCH ×3 (05:25→06:49)
[2020-06-03] MEDS: ALBUMIN 25% 25 GM/100 ML 50 ML IV SCH ×3 (05:25→21:11)
[2020-06-03 06:25] VITALS: BP 102/47
--- NOTE | 2020-06-03 07:30 | NUR ---
THIS NURSE NOTIFIED DR CHAVES PT IS VERY AGITATED THIS MORNING AND IS NOT TOLERATING VENT. ORDER GIVEN TO START PROPOFOL AND KEEP PRECEDEX. WILL CONTINUE TO MONITOR. Addendum: 06/03/20 at 1758 by LASHAWN TREVIÑO RN ISAAK PT.
--- NOTE | 2020-06-03 08:23 | Progress Note - Hospitalist ---
Subjective HPI/CC On Admission Date Seen by Provider: Jun 03, 2020 Time Seen by Provider: 08:18 Dustin Solares is a 59 year old male with PMH alcohol dependence who presented with hematemesis. He is a poor historian. He reports that he has been having bloody emesis and melena for an undetermined amount of time. He reports drinking every day. He denies fevers and chills. He denies trouble breathing and cough. He reports abdominal swelling. Subjective/Events-last exam Pt remains intubated and sedated. No complaints at this time per RN. Had to go back on pressors overnight though. Focused Exam Time of Focused Exam: 14:30 Objective Exam Vital Signs Vital Signs Date Time Temp Pulse Resp B/P (MAP) Pulse Ox O2 Delivery O2 Flow Rate FiO2 06/03/20 07:52 37.0 06/03/20 06:25 74 24 92 40 06/03/20 06:00 90/62 (71) Mechanical Ventilator 100.00 Capillary Refill : Less Than 3 Seconds General Appearance: Chronically ill, Obese Respiratory: Rhonci, Other (on vent) Cardiovascular: Regular Rate, Rhythm, No Murmur Genital/Rectal: Other (gaona in place) Extremity: No Pedal Edema Neurologic/Psychiatric: Other (sedated, appears comfortable) Skin: Normal Color, Warm/Dry; No Mottled, No Petechia Results/Procedures Lab Laboratory Tests 06/03/20 02:25 Patient resulted labs reviewed. Imaging: Reviewed Imaging Report Assessment/Plan Assessment and Plan Assess & Plan/Chief Complaint Acute blood loss anemia Hematemesis Upper GI bleeding due to variceal bleed History of peptic ulcer Likely decompensated alcoholic cirrhosis Hepatic encephalopathy Lactic acidosis Acute kidney injury Endotracheally intubated Hgb stable around 8.5 s/p 2 units PRBCs during whole admission Continue IV PPI BID and Octreotide Continue Levophed and LR at 75ml/hr Surgery consulted, appreciate assistance, s/p EGD on 05/31 Rocephin for SBP prophylaxis Pulm consulted for vent management, appreciate recs Albumin given this AM DVT prophylaxis: held due to GI bleed Critical Care Critically Ill Patient Clinical Quality Measures DVT/VTE Risk/Contraindication: Risk Factor Score Per Nursin RFS Level Per Nursing on Admit: 4+=Very High Contraindications-Pharm: Other *list below* Other: PT IS GI BLEED- NO VTE MEDICATION ORDERED AT THIS TIME. WILL USE [facility]. JAMES SEARS MD Jun 03, 2020 08:23
--- NOTE | 2020-06-03 08:30 | Diagnostic Imaging Report ---
INDICATION: Gastrointestinal bleed and anemia. Compared 06/02/2020 FINDINGS: There is a small left pleural effusion and subjacent basilar infiltrate or atelectasis slightly improved in the interim. The heart size is within normal limits. An ET tube tip is in the lower thoracic trachea. Right PICC line at the lower SVC. IMPRESSION: Left basilar pleural-parenchymal opacity showed slight improvement. Support apparatus stable. There has been no adverse interval development. Dictated by: Dictated on workstation # [id number]
[2020-06-03] MEDS: PANTOPRAZOLE 40 MG (PROTONIX) VIAL IV SCH ×2 (08:47→20:04)
[2020-06-03] MEDS: RIFAXIMIN 550 MG TABLET (XIFAXAN) PO SCH ×2 (08:47→20:04)
[2020-06-03] MEDS: LACTULOSE SYRUP 10GM/15ML (ENULOSE) 30ML UDC PO SCH ×4 (08:47→20:04)
--- NOTE | 2020-06-03 09:23 | Diagnostic Imaging Report ---
PROCEDURE: US Abdomen, limited. TECHNIQUE: Multiple realtime grayscale images were obtained over the abdomen in various projections. INDICATION: Ascites There are no prior ultrasound examinations available for comparison. There is a large amount of ascites. No other abnormalities noted. IMPRESSION: There is a large amount of ascites. Dictated by: Dictated on workstation # [id number]
--- NOTE | 2020-06-03 10:48 | NUR ---
THIS RN UPDATED JENNIFER ON PT CONDITION.
[2020-06-03] MEDS: NS IV 500 ML 500 ML IV SCH (10:54)
[2020-06-03] MEDS: VANCOMYCIN INJECTION 1,500 MG in NS IV 500 ML 500 ML IV SCH (11:36)
[2020-06-03] MEDS: LACTATED RINGERS 1,000 ML IV SCH (12:49)
[2020-06-03 13:51] VITALS: BP 110/58
--- NOTE | 2020-06-03 14:48 | NUR ---
THIS RN UPDATED ESTEFANIA THE SISTER ON PT CONDITION.
[2020-06-03] MEDS: cefTRIAXone FOR IV USE 1,000 MG in WATER (STERILE) FOR INJECTION 10 ML IV SCH (14:57)
[2020-06-03 19:38] VITALS: BP 100/68
[2020-06-03 22:28] VITALS: BP 82/58
[2020-06-04] MEDS: VANCOMYCIN INJECTION 1,500 MG in NS IV 500 ML 500 ML IV SCH ×2 (00:34→12:23)
[2020-06-04 02:53] VITALS: BP 104/56
--- NOTE | 2020-06-04 03:23 | Pulmonary Progress Note ---
TROY CAMPOVERDE,MED STUDENT 06/04/20 0323: Subjective Date Seen by a Provider: Jun 04, 2020 Time Seen by a Provider: 03:00 Subjective/Events-last exam Sedated on vent, 30% FiO2, PEEP of 5 On Precedex, propofol D/C On LR at 75/hr Urine output slightly improved Sepsis Event Evaluation Height, Weight, BMI Height: '" Weight: lbs. oz. kg; 21.00 BMI Method: Focused Exam Time of Focused Exam: 14:30 Exam Exam Vital Signs Date Time Temp Pulse Resp B/P (MAP) Pulse Ox O2 Delivery O2 Flow Rate FiO2 06/04/20 02:53 59 24 96 30 06/04/20 02:00 56 23 95 Mechanical Ventilator 100.00 06/04/20 01:00 57 23 96 Mechanical Ventilator 100.00 06/04/20 01:00 57 06/04/20 00:00 58 24 96 Mechanical Ventilator 100.00 06/03/20 23:00 57 23 96 Mechanical Ventilator 100.00 06/03/20 22:28 56 24 99 40 06/03/20 22:20 57 135/61 06/03/20 22:00 58 24 97 Mechanical Ventilator 100.00 06/03/20 21:00 58 17 97 Mechanical Ventilator 100.00 06/03/20 20:04 57 113/57 06/03/20 20:04 57 114/57 06/03/20 20:00 94 Mechanical Ventilator 30 06/03/20 20:00 57 24 107/69 (85) 98 Mechanical Ventilator 100.00 06/03/20 19:45 57 24 97 Mechanical Ventilator 100.00 06/03/20 19:45 36.4 06/03/20 19:38 57 24 97 40 06/03/20 19:30 58 24 97 Mechanical Ventilator 100.00 06/03/20 19:15 58 23 97 Mechanical Ventilator 100.00 06/03/20 19:00 58 24 100/68 (84) 97 Mechanical Ventilator 100.00 06/03/20 19:00 58 06/03/20 18:08 60 24 107/70 (82) 98 Mechanical Ventilator 100.00 06/03/20 17:07 62 119 96/69 (78) 63 Mechanical Ventilator 100.00 06/03/20 16:00 60 23 99/69 (79) 96 Mechanical Ventilator 100.00 06/03/20 15:50 36.2 06/03/20 15:03 103/51 06/03/20 15:00 60 24 99/65 (76) 96 Mechanical Ventilator 100.00 06/03/20 14:00 62 24 95/64 (74) 96 Mechanical Ventilator 100.00 06/03/20 13:51 62 24 96 40 06/03/20 13:00 64 24 113/74 (87) 97 Mechanical Ventilator 100.00 06/03/20 12:42 66 06/03/20 12:24 93/49 06/03/20 12:00 64 24 77/53 (61) 95 Mechanical Ventilator 100.00 06/03/20 11:47 36.2 06/03/20 11:00 68 23 107/66 (80) 94 Mechanical Ventilator 100.00 06/03/20 10:00 71 23 112/73 (86) 93 Mechanical Ventilator 100.00 06/03/20 09:00 103 23 119/60 (79) 92 Mechanical Ventilator 100.00 06/03/20 08:00 91 Mechanical Ventilator 40 06/03/20 08:00 103 31 123/69 (87) 92 Mechanical Ventilator 100.00 06/03/20 07:52 37.0 06/03/20 07:00 69 24 100/66 (77) 92 Mechanical Ventilator 100.00 06/03/20 06:54 69 06/03/20 06:25 74 24 92 40 06/03/20 06:00 81 24 90/62 (71) 88 Mechanical Ventilator 100.00 06/03/20 05:19 37.0 96 24 106/48 95 Mechanical Ventilator 06/03/20 05:00 97 14 105/67 (80) 84 Mechanical Ventilator 25.00 06/03/20 04:00 96 29 91/49 (63) 90 Mechanical Ventilator 25.00 I & O 06/04/20 07:00 Intake Total 1270 ml Output Total 1255 ml Balance 15 ml Height & Weight Height: '" Weight: lbs. oz. kg; 21.00 BMI Method: General Appearance: Chronically ill, Obese HEENT: Normal ENT Inspection Neck: Full Range of Motion Respiratory: Rhonci, Other (on vent) Cardiovascular: Regular Rate, Rhythm, No Murmur Capillary Refill: Less Than 3 Seconds Peripheral Pulses: 2+ Radial Pulses (R), 2+ Radial Pulses (L) Gastrointestinal: soft, distended Extremity: No Pedal Edema Neurologic/Psychiatric: Other (sedated, appears comfortable) Skin: Normal Color, Warm/Dry; No Mottled, No Petechia Lymphatic: No Adenopathy Results Lab Laboratory Tests 06/03/20 02:25 Assessment/Plan Assessment/Plan Acute respiratory failure -Continue ventilator care -On Precedex -Continue to try to wake pt up -intubated 05/30 Acute GIB s/p 4 units PRBC -Monitor Hb -Octreotide -Protonix BID -s/p EGD hypotension -Monitor -requiring Levophed -on albumin Alcohol dependance -CIWA protocol -Pt has been getting ativan -Precedex was stopped at 115 Hypotension -requiring Levophed -Monitor Hepatic encpephalopathy with lethargy and agitation -PT may need to be intubated -Check ammonia level -on rifaxamine Metabolic acidosis - IVF LR @ 75/hr Acute renal failure -Monitor OPAL CHAVES DO 06/04/20 0541: Assessment/Plan Assessment/Plan Acute respiratory failure -Continue ventilator care -On Precedex -Continue to try to wake pt up -Change vent to spont mode. Repeat ABG 30min after change. -intubated 05/30 Acute GIB s/p 4 units PRBC -Monitor Hb -Octreotide -Protonix BID -s/p EGD hypotension -Monitor -requiring Levophed -on albumin Alcohol dependance -D/C CIWA protocol -Pt has been getting ativan -Precedex was stopped at 115 Hypotension -requiring Levophed -Monitor Hepatic encpephalopathy with lethargy and agitation -PT may need to be intubated -Check ammonia level -on rifaxamine Metabolic acidosis - IVF LR @ 75/hr Acute renal failure -Monitor TROY CAMPOVERDE,MED STUDENT Jun 04, 2020 03:23 OPAL CHAVES DO Jun 04, 2020 05:41
[2020-06-04 03:33] LABS: EOSINOPHILS % (AUTO) 5 % (0-10); HEMOGLOBIN 7.8 g/dL (13.3-17.7); MONOCYTES % (AUTO) 16 % (0-12)
[2020-06-04 03:35] LABS: BASOPHILS # (AUTO) 0.1 10^3/uL (0.0-0.1); BASOPHILS % (AUTO) 1 % (0-10); EOSINOPHILS # (AUTO) 0.5 10^3/uL (0.0-0.3); HEMATOCRIT 25 % (40-54); LYMPHOCYTES # (AUTO) 2.5 10^3/uL (1.0-4.0); LYMPHOCYTES % (AUTO) 23 % (12-44); MEAN CORPUSCULAR HEMOGLOBIN 31 pg (25-34); MEAN CORPUSCULAR HGB CONC 32 g/dL (32-36); MEAN CORPUSCULAR VOLUME 96 fL (80-99); MEAN PLATELET VOLUME 11.8 fL (9.0-12.2); MONOCYTES # (AUTO) 1.7 10^3/uL (0.0-1.0); NEUTROPHILS # (AUTO) 5.7 10^3/uL (1.8-7.8); NEUTROPHILS % (AUTO) 54 % (42-75); PLATELET COUNT 127 10^3/uL (130-400); WHITE BLOOD COUNT 10.5 10^3/uL (4.3-11.0)
[2020-06-04 03:39] LABS: ABG BASE EXCESS -3.9 MMOL/L (-2.5-2.5); ABG OXYGEN SATURATION 98 % (94-100); ABG PCO2 33 MMHG (35-45); ABG PO2 86 MMHG (79-93); ABG TCO2 21.3 MMOL/L (21.0-31.0)
[2020-06-04 03:40] LABS: ALLENS TEST ART LINE; INSPIRED O2 30%; PATIENT TEMP 35.9; VENTILATOR YES
[2020-06-04 03:43] LABS: CHLORIDE 113 MMOL/L (98-107); POTASSIUM 3.3 MMOL/L (3.6-5.0); SODIUM 137 MMOL/L (135-145)
[2020-06-04 03:44] LABS: CALCIUM 7.1 MG/DL (8.5-10.1); GLUCOSE 106 MG/DL (70-105)
[2020-06-04 03:46] LABS: CARBON DIOXIDE 19 MMOL/L (21-32)
[2020-06-04 03:48] LABS: CREATININE SERUM 0.64 MG/DL (0.60-1.30); GFR ESTIMATED > 60; PHOSPHORUS 1.9 MG/DL (2.3-4.7)
[2020-06-04 03:49] LABS: BUN/CREATININE RATIO 22
[2020-06-04 03:51] LABS: MAGNESIUM 1.6 MG/DL (1.6-2.4)
[2020-06-04] MEDS: NS IV 500 ML 500 ML IV SCH ×2 (04:31→22:51)
[2020-06-04] MEDS: LACTATED RINGERS 1,000 ML IV SCH ×3 (04:31→23:00)
[2020-06-04] MEDS: DexMEDEtomidine PRE MIX 100 ML IV SCH ×6 (04:34→22:51)
[2020-06-04] MEDS: POTASSIUM CL 10MEQ/50ML IVPB 50 ML IV SCH ×5 (04:42→12:23)
[2020-06-04] MEDS: MAGNESIUM 1 GM/100 ML IVPB 100 ML IV SCH ×3 (04:42→05:57)
[2020-06-04] MEDS: KCL 20 MEQ TAB (K-DUR) PO SCH (04:42)
[2020-06-04 06:57] VITALS: BP 81/41
[2020-06-04] MEDS ORDERED: POTASSIUM PHOSPHATE INJ 15 MM in NS (IVPB) 250 ML IV ONE (07:00)
[2020-06-04] MEDS: PANTOPRAZOLE 40 MG (PROTONIX) VIAL IV SCH ×2 (08:11→20:40)
[2020-06-04] MEDS: NOREPINEPHRINE 4 MG/250 ML 250 ML IV SCH ×2 (08:11→15:51)
[2020-06-04] MEDS: RIFAXIMIN 550 MG TABLET (XIFAXAN) PO SCH ×2 (08:11→20:40)
[2020-06-04] MEDS: LACTULOSE SYRUP 10GM/15ML (ENULOSE) 30ML UDC PO SCH ×4 (08:11→20:40)
[2020-06-04] MEDS: OCTREOTIDE DRIP 500 MCG/NS 99 ML IV SCH ×2 (08:29)
--- NOTE | 2020-06-04 08:51 | Diagnostic Imaging Report ---
INDICATION: GI bleeding Portable chest 4:48 AM There is an ET tube projecting over the trachea. NG tube projects over the stomach. Right upper extremity PICC line tip projects over the SVC. Heart size and pulmonary vascularity are normal. Lungs are clear. There are no effusions or pneumothoraces. IMPRESSION: Unremarkable chest. Improved aeration compared to the previous day. Dictated by: Dictated on workstation # [id number]
--- NOTE | 2020-06-04 10:19 | NUR ---
THIS NURSE NOTIFIED DR CHAVES OF PT LOW URINE OUTPUT. SEE ORDER HX. WILL CONTINUE TO MONITOR.
[2020-06-04] MEDS ORDERED: LACTATED RINGERS 1,000 ML IV SCH (10:30)
--- NOTE | 2020-06-04 12:05 | Progress Note - Hospitalist ---
TRICE FERRIS MED STUDENT 06/04/20 1205: Subjective HPI/CC On Admission Dustin Solares is a 59 year old male with PMH alcohol dependence who presented with hematemesis. He is a poor historian. He reports that he has been having bloody emesis and melena for an undetermined amount of time. He reports drinking every day. He denies fevers and chills. He denies trouble breathing and cough. He reports abdominal swelling. Subjective/Events-last exam Dustin is still intubated and being sedated. He is consciously aware of what is going on. He was able to nod for the physical exam. Review of Systems General: Other (Unable to obtain due to intubation status ) Focused Exam Time of Focused Exam: 14:30 Objective Exam Vital Signs Vital Signs Date Time Temp Pulse Resp B/P (MAP) Pulse Ox O2 Delivery O2 Flow Rate FiO2 06/04/20 14:00 60 24 93 Mechanical Ventilator 30.00 06/04/20 13:53 30 06/04/20 08:00 36.2 Capillary Refill : Less Than 3 Seconds General Appearance: No Apparent Distress Neck: No Lymphadenopathy (L), No Lymphadenopathy (R) Respiratory: Rhonci, Other (On ventilator) Cardiovascular: Regular Rate, Rhythm, No Edema, No Murmur Gastrointestinal: Abnormal Bowel Sounds (Hypoactive bowel sounds), Distended Extremity: Normal Capillary Refill, No Pedal Edema Skin: Normal Color, Warm/Dry Lymphatic: No Adenopathy Results/Procedures Lab Laboratory Tests 06/04/20 03:15 Patient resulted labs reviewed. Imaging: Reviewed Imaging Report Assessment/Plan Assessment and Plan Assess & Plan/Chief Complaint Acute Blood Loss Anemia with Hemorrhagic Shock Most likely due to upper GI variceal bleed Surgery consulted, appreciate assistance, S/P EGD performed on 05/31/20 Hgb is 7.8 today Blood pressure 102/49 Continue Vasopressin @ 12.12 mls/hr Continue Octreotide at 10 mls/hr Endotracheal Intubation FiO2 at 30%. peep at 5.0 Hgb stable at 7.8 Pulmonary consultation, appreciate assistance Pt has received 2 units of packed rbcs Continue Precedex @ 15.875 mls/hr Hematemesis Hepatic Encephalopathy Continue Rifaximin 550 mg, PO, BID Continue Lactulose 10 gm, PO, qd Potentially check Ammonia level History of peptic ulcers Continue Pantoprazole 40 mg, IV, BID Decompensated Alcoholic Cirrhosis Acute Kidney Injury Currently BUN 14, Cr 0.64 Lactic Acidosis DVT prophylaxis Held due to GI bleed Continue sequential compression devices Clinical Quality Measures DVT/VTE Risk/Contraindication: Risk Factor Score Per Nursin RFS Level Per Nursing on Admit: 4+=Very High Contraindications-Pharm: Other *list below* Other: PT IS GI BLEED- NO VTE MEDICATION ORDERED AT THIS TIME. WILL USE SCD'S. LISA CALLOWAY MD 06/04/202137: Subjective HPI/CC On Admission Date Seen by Provider: Jun 04, 2020 Time Seen by Provider: 07:45 Objective Exam General Appearance: Other (sedated and on vent ) HEENT: Other (OGT in place) Respiratory: Other (On ventilator) Genital/Rectal: Other (gaona in place) Neurologic/Psychiatric: Other (sedated, appears comfortable) Assessment/Plan Assessment and Plan Assess & Plan/Chief Complaint Patient relatively stable today. Usg revealed ascites. Discussed with surgery who will plan on paracentesis today. Discussed with Pulm and plans to maintain on vent today and hopeful to start weaning tomorrow. K replaced per protocol. Supervisory-Addendum Brief Verification & Attestation Participated in pt care: history, MDM, physical Personally performed: exam, history, MDM, supervision of care Care discussed with: Medical Student Procedures: n/a Results interpretation: Verified all documentation Verification and Attestation of Medical Student E/M Service A medical student performed and documented this service in my presence. I reviewed and verified all information documented by the medical student and made modifications to such information, when appropriate. I personally performed the physical exam and medical decision making. Lisa Calloway, Jun 04, 2020,21:38 TRICE FERRIS MED STUDENT Jun 04, 2020 12:05 LISA CALLOWAY MD Jun 04, 2020 21:38
[2020-06-04 13:53] VITALS: BP 93/46
--- NOTE | 2020-06-04 14:50 | NUR ---
THIS NURSE NOTIFIED DR HORACIO RODRIGUEZ GF WOULD LIKE TO TALK TO HIM.
--- NOTE | 2020-06-04 14:55 | NUR ---
THIS NURSE NOTIFIED DR CHAVES PT HAS ONLY HAD 50 ML OF URINE OUT PUT SINCE BOLUS. DR LEONARD IS DOING PARACENTESIS. NO NEW ORDERS AT THIS TIME. WILL CONTINUE TO MONITOR.
--- NOTE | 2020-06-04 17:41 | NUR ---
THIS NURSE NOTIFIED DR Vicente WITH EICU PT HAS HAD MINIMAL URINE OUTPUT. PT HAD 5000ML OF FLUID OFF FROM PARACENTESIS. SEE ORDER HX. WILL CONTINUE TO MONITOR.
[2020-06-04] MEDS: ALBUMIN 25% 25 GM/100 ML 200 ML IV SCH ×2 (18:26→20:41)
[2020-06-04 18:59] VITALS: BP 80/53
--- NOTE | 2020-06-04 19:30 | OPERATIVE REPORT ---
DATE OF SERVICE: 06/04/2020 ATTENDING TOOLING ENGINEER: [facility]. PREOPERATIVE DIAGNOSES: Liver cirrhosis, anemia, respiratory failure, anasarca, symptomatic ascites. POSTPROCEDURE DIAGNOSES: Liver cirrhosis, anemia, respiratory failure, anasarca, symptomatic ascites. PROCEDURE: Placement paracentesis catheter. SURGEON: Joy Leonard MD ANESTHESIA: Local. ESTIMATED BLOOD LOSS: Minimal. FINDINGS: Straw yellow transudative fluid. DISPOSITION: The patient tolerated the procedure well. INDICATIONS: The patient is a 59-year-old male who initially presented to the Emergency Department with hematemesis as well as dark stools. This had been going on for on an intermittent basis for the past 4 weeks. He did admit to a significant amount of alcohol consumption for many years and the patient also was found to have ascites upon admission; however, not severe at that time. He also does have other risk factors including smoking daily. Due to symptomatic anemia and combativeness, he was intubated. He underwent an EGD and was found to have esophageal varices as well as a severe gastritis. Since receiving packed red blood cells, his hemoglobin has been stable. ICU staff is trying to wean him off the vent; however, he has developed worsening ascites since admission, which is compromising his tidal volume and overall ventilatory progress. We will proceed with paracentesis. DESCRIPTION OF PROCEDURE: The abdomen was prepped and draped in standard surgical fashion. Before this, an ultrasound marked the right lower abdominal quadrant. A 1% lidocaine was then used to anesthetize the skin, subcutaneous tissue, muscle layers as well as the peritoneal lining. A vertical skin incision was then made using 11 blade. A catheter and trocar were then placed withdrawing of straw yellow transudative fluid. The catheter was then advanced over the trocar without any resistance. The catheter was then connected to tubing followed by a gravity drainage bag. Catheter was then covered with sterile gauze followed by Op-Site. The patient tolerated the procedure well. We will continue with drainage until his abdomen decompresses and he is less symptomatic and then the catheter will then be removed. Job ID: [id number] DocumentID: [id number] Dictated Date: 06/04/2020 15:01:54 Group Segment Consultant Date: 06/04/2020 19:29:31 Dictated By: JOY LEONARD MD
--- NOTE | 2020-06-04 21:00 | NUR ---
EICU called at this time regarding patient doubled over in bed attempting to pull out ETT. precedex maxed at 1.5mcg/kg/min, patient very aggressive and also has ahold of paracentesis catheter and refuses to let go. patient squeezing RN hand and also refusing to let go. New order for diprivan. Patient shakes head yes when asked if uncomfortable.
[2020-06-04] MEDS ORDERED: PROPOFOL DRIP (ICU) 100 ML IV ONE (21:10)
[2020-06-04] MEDS: PROPOFOL DRIP (ICU) 100 ML IV SCH (21:17)
[2020-06-05] MEDS: VANCOMYCIN INJECTION 1,500 MG in NS IV 500 ML 500 ML IV SCH (00:48)
[2020-06-05] MEDS: PROPOFOL DRIP (ICU) 100 ML IV SCH ×2 (00:48→05:39)
--- NOTE | 2020-06-05 03:19 | Pulmonary Progress Note ---
TROY CAMPOVERDE,MED STUDENT 06/05/20 0319: Subjective Date Seen by a Provider: Jun 05, 2020 Time Seen by a Provider: 03:00 Subjective/Events-last exam Sedated on vent Sepsis Event Evaluation Height, Weight, BMI Height: '" Weight: lbs. oz. kg; 21.00 BMI Method: Focused Exam Time of Focused Exam: 14:30 Exam Exam Vital Signs Date Time Temp Pulse Resp B/P (MAP) Pulse Ox O2 Delivery O2 Flow Rate FiO2 06/05/20 02:56 58 24 99 30 06/05/20 00:51 58 78/53 06/05/20 00:48 58 116/57 06/04/20 23:00 63 24 99 Mechanical Ventilator 30.00 06/04/20 22:51 138/66 06/04/20 22:42 66 24 98 30 06/04/20 22:00 64 24 99 Mechanical Ventilator 30.00 06/04/20 21:55 98 Mechanical Ventilator 30 06/04/20 21:17 123/82 06/04/20 21:00 68 14 97 Mechanical Ventilator 30.00 06/04/20 20:35 138/59 06/04/20 20:00 61 23 97 Mechanical Ventilator 30.00 06/04/20 19:45 69 23 97 Mechanical Ventilator 30.00 06/04/20 19:38 35.0 06/04/20 19:30 64 9 100 Mechanical Ventilator 30.00 06/04/20 19:15 66 23 99 Mechanical Ventilator 30.00 06/04/20 19:00 65 10 99 Mechanical Ventilator 30.00 06/04/20 19:00 65 06/04/20 18:59 66 24 99 30 06/04/20 18:00 62 23 99 Mechanical Ventilator 30.00 06/04/20 17:37 106/50 06/04/20 17:00 63 23 98 Mechanical Ventilator 30.00 06/04/20 16:13 35.6 06/04/20 16:00 66 25 97 Mechanical Ventilator 30.00 06/04/20 15:51 91/63 06/04/20 15:00 61 24 97 Mechanical Ventilator 30.00 06/04/20 14:00 60 24 93 Mechanical Ventilator 30.00 06/04/20 13:53 59 24 92 30 06/04/20 13:00 60 23 97 Mechanical Ventilator 30.00 06/04/20 12:00 58 11 92 Mechanical Ventilator 30.00 06/04/20 11:47 60 06/04/20 11:00 60 23 99 Mechanical Ventilator 30.00 06/04/20 10:00 63 19 90 Mechanical Ventilator 30.00 06/04/20 09:00 59 24 95 Mechanical Ventilator 30.00 06/04/20 08:09 102/49 06/04/20 08:00 36.2 06/04/20 08:00 59 25 92 Mechanical Ventilator 30.00 06/04/20 07:59 59 06/04/20 07:45 93 Mechanical Ventilator 30 06/04/20 07:00 54 10 95/63 (74) 97 Mechanical Ventilator 30.00 06/04/20 06:57 55 25 97 30 06/04/20 06:03 56 93/53 06/04/20 06:00 55 24 96 Mechanical Ventilator 30.00 06/04/20 05:00 56 24 96 Mechanical Ventilator 30.00 06/04/20 04:34 58 117/56 06/04/20 04:00 35.9 Mechanical Ventilator 30.00 06/04/20 04:00 61 11 97 Mechanical Ventilator 30.00 I & O 06/05/20 07:00 Intake Total 4295 ml Output Total 6435 ml Balance -2140 ml Height & Weight Height: '" Weight: lbs. oz. kg; 21.00 BMI Method: General Appearance: No Apparent Distress, Chronically ill, Other (sedated and on vent ) HEENT: Other (OGT in place) Neck: No Lymphadenopathy (L), No Lymphadenopathy (R) Respiratory: No Accessory Muscle Use, No Respiratory Distress, Other (On ventil ator) Cardiovascular: Regular Rate, Rhythm, No Edema, No Murmur Capillary Refill: Less Than 3 Seconds Peripheral Pulses: 2+ Radial Pulses (R), 2+ Radial Pulses (L) Gastrointestinal: soft, distended Extremity: Normal Capillary Refill, No Pedal Edema Neurologic/Psychiatric: Other (sedated, appears comfortable) Skin: Normal Color, Warm/Dry Lymphatic: No Adenopathy Results Lab Laboratory Tests 06/04/20 03:15 Assessment/Plan Assessment/Plan Acute respiratory failure -Continue ventilator care -On Precedex and Propofol -Pt agitated and pulling on lines while awake -intubated 05/30 Acute GIB s/p 4 units PRBC -Hgb stable -Octreotide D/C -Protonix BID -s/p EGD -7L fluid removed on paracentesis hypotension -Monitor -requiring Levophed -on albumin Alcohol dependance -D/C CIWA protocol -Pt has been getting ativan Hepatic encpephalopathy with lethargy and agitation -Sedated on vent -on rifaxamine Metabolic acidosis -improved - IVF LR @ 75/hr Acute renal failure -Monitor OPAL CHAVES DO 06/05/20 0552: Assessment/Plan Assessment/Plan Acute respiratory failure -Continue ventilator care -On Precedex and Propofol -Pt gets very agitated with weaning sedation. He is currently on 21% oxygen. -D/C sedation and once awake proceed with extubation. -intubated 05/30 Acute GIB s/p 4 units PRBC -Hgb stable -Octreotide D/C -Protonix BID -s/p EGD -7L fluid removed on paracentesis s/p albumin hypotension -Monitor -requiring Levophed -on albumin Alcohol dependance -D/C CIWA protocol -Pt has been getting ativan Hepatic encpephalopathy with lethargy and agitation -Sedated on vent -on rifaxamine Metabolic acidosis -improved - IVF LR @ 75/hr Acute renal failure -Monitor TROY CAMPOVERDEMED STUDENT Jun 05, 2020 03:19 OPAL CHAVES DO Jun 05, 2020 05:52
[2020-06-05 03:25] LABS: BASOPHILS # (AUTO) 0.1 10^3/uL (0.0-0.1); BASOPHILS % (AUTO) 1 % (0-10); EOSINOPHILS # (AUTO) 0.4 10^3/uL (0.0-0.3); EOSINOPHILS % (AUTO) 4 % (0-10); HEMATOCRIT 24 % (40-54); LYMPHOCYTES # (AUTO) 2.2 10^3/uL (1.0-4.0); LYMPHOCYTES % (AUTO) 23 % (12-44); MEAN CORPUSCULAR HEMOGLOBIN 31 pg (25-34); MEAN CORPUSCULAR HGB CONC 33 g/dL (32-36); MEAN CORPUSCULAR VOLUME 95 fL (80-99); MEAN PLATELET VOLUME 11.7 fL (9.0-12.2); MONOCYTES # (AUTO) 1.3 10^3/uL (0.0-1.0); MONOCYTES % (AUTO) 14 % (0-12); NEUTROPHILS # (AUTO) 5.5 10^3/uL (1.8-7.8); NEUTROPHILS % (AUTO) 58 % (42-75); PLATELET COUNT 129 10^3/uL (130-400); WHITE BLOOD COUNT 9.6 10^3/uL (4.3-11.0)
[2020-06-05] MEDS: NOREPINEPHRINE 4 MG/250 ML 250 ML IV SCH ×4 (03:27→20:48)
[2020-06-05 03:29] LABS: ABG BASE EXCESS -5.8 MMOL/L (-2.5-2.5); ABG OXYGEN SATURATION 99 % (94-100); ABG PCO2 26 MMHG (35-45); ABG PH 7.45 (7.37-7.43); ABG PO2 91 MMHG (79-93); ABG TCO2 18.6 MMOL/L (21.0-31.0)
[2020-06-05 03:30] LABS: ALLENS TEST ART LINE; INSPIRED O2 30%; PATIENT TEMP 35.9; VENTILATOR YES
[2020-06-05 03:41] LABS: CHLORIDE 112 MMOL/L (98-107); POTASSIUM 3.5 MMOL/L (3.6-5.0); SODIUM 136 MMOL/L (135-145)
[2020-06-05 03:43] LABS: GLUCOSE 126 MG/DL (70-105)
[2020-06-05 03:44] LABS: CARBON DIOXIDE 17 MMOL/L (21-32)
[2020-06-05 03:46] LABS: PHOSPHORUS 2.2 MG/DL (2.3-4.7)
[2020-06-05 03:47] LABS: CREATININE SERUM 0.62 MG/DL (0.60-1.30); GFR ESTIMATED > 60
[2020-06-05 03:48] LABS: BUN/CREATININE RATIO 19
[2020-06-05 03:49] LABS: MAGNESIUM 1.5 MG/DL (1.6-2.4)
[2020-06-05] MEDS: POTASSIUM CL 10MEQ/50ML IVPB 50 ML IV SCH ×2 (03:51→10:28)
[2020-06-05] MEDS: KCL 20 MEQ TAB (K-DUR) PO SCH (03:52)
[2020-06-05] MEDS: MAGNESIUM 1 GM/100 ML IVPB 100 ML IV SCH ×3 (04:32→05:15)
[2020-06-05] MEDS: DexMEDEtomidine PRE MIX 100 ML IV SCH ×5 (04:32→23:28)
--- NOTE | 2020-06-05 08:18 | Diagnostic Imaging Report ---
Portable erect AP chest at 305 hours. INDICATION: Gastrointestinal bleeding. FINDINGS: Both the heart and the central pulmonary vascularity do seem somewhat more prominent than on the prior exam of 06/04/2020. This appearance suggest that there may be an element of early/mild pulmonary congestion present. There is still blunting of both costophrenic angles. The lungs are generally clear otherwise. The mediastinum is not widened. The osseous structures are intact. The supportive tubes and lines seen previously are similar position to the prior exam. IMPRESSION: The prominence of the heart and the central pulmonary vascularity when compared to the prior exam does suggest that there is now an element of early/mild pulmonary congestion present. Clinical follow-up is recommended. Dictated by: Dictated on workstation # [id number]
[2020-06-05] MEDS ORDERED: POTASSIUM PHOSPHATE INJ 30 MM in NS (IVPB) 250 ML IV ONE (09:00)
[2020-06-05] MEDS: RIFAXIMIN 550 MG TABLET (XIFAXAN) PO SCH ×2 (10:27→21:51)
[2020-06-05] MEDS: PANTOPRAZOLE 40 MG (PROTONIX) VIAL IV SCH ×2 (10:27→20:55)
[2020-06-05] MEDS: LACTULOSE SYRUP 10GM/15ML (ENULOSE) 30ML UDC PO SCH ×4 (10:38→21:51)
--- NOTE | 2020-06-05 11:54 | Progress Note ---
Subjective Date Seen by a Provider: Jun 05, 2020 Time Seen by a Provider: 10:00 Subjective/Events-last exam doing well. Hb stable. copious ascites output. tolerating vent ween. Focused Exam Time of Focused Exam: 14:30 Objective Exam Vital Signs Date Time Temp Pulse Resp B/P (MAP) Pulse Ox O2 Delivery O2 Flow Rate FiO2 06/05/20 11:00 55 24 96 Mechanical Ventilator 21.00 06/05/20 10:00 54 24 96 Mechanical Ventilator 21.00 06/05/20 09:00 53 24 98 Mechanical Ventilator 21.00 06/05/20 08:13 36.2 06/05/20 08:00 52 13 94 Mechanical Ventilator 21.00 06/05/20 07:00 54 23 92 Mechanical Ventilator 21.00 06/05/20 06:48 54 24 92 21 06/05/20 06:42 55 06/05/20 06:00 54 23 97 Mechanical Ventilator 21.00 06/05/20 05:39 54 110/58 06/05/20 05:00 55 24 97 Mechanical Ventilator 21.00 06/05/20 04:42 35.9 Mechanical Ventilator 21.00 06/05/20 04:32 55 114/57 06/05/20 04:00 57 24 96 Mechanical Ventilator 30.00 06/05/20 03:48 98 Mechanical Ventilator 30 06/05/20 03:00 61 23 99 Mechanical Ventilator 30.00 06/05/20 02:56 58 24 99 30 06/05/20 02:00 59 23 99 Mechanical Ventilator 30.00 06/05/20 01:00 59 23 99 Mechanical Ventilator 30.00 06/05/20 01:00 59 06/05/20 00:51 58 78/53 06/05/20 00:48 58 116/57 06/05/20 00:00 60 23 99 Mechanical Ventilator 30.00 06/04/20 23:00 63 24 99 Mechanical Ventilator 30.00 06/04/20 22:51 138/66 06/04/20 22:42 66 24 98 30 06/04/20 22:00 64 24 99 Mechanical Ventilator 30.00 06/04/20 21:55 98 Mechanical Ventilator 30 06/04/20 21:17 123/82 06/04/20 21:00 68 14 97 Mechanical Ventilator 30.00 06/04/20 20:35 138/59 06/04/20 20:00 61 23 97 Mechanical Ventilator 30.00 06/04/20 19:45 69 23 97 Mechanical Ventilator 30.00 06/04/20 19:38 35.0 06/04/20 19:30 64 9 100 Mechanical Ventilator 30.00 06/04/20 19:15 66 23 99 Mechanical Ventilator 30.00 06/04/20 19:00 65 10 99 Mechanical Ventilator 30.00 06/04/20 19:00 65 06/04/20 18:59 66 24 99 30 06/04/20 18:00 62 23 99 Mechanical Ventilator 30.00 06/04/20 17:37 106/50 06/04/20 17:00 63 23 98 Mechanical Ventilator 30.00 06/04/20 16:13 35.6 06/04/20 16:00 66 25 97 Mechanical Ventilator 30.00 06/04/20 15:51 91/63 06/04/20 15:00 61 24 97 Mechanical Ventilator 30.00 06/04/20 14:00 60 24 93 Mechanical Ventilator 30.00 06/04/20 13:53 59 24 92 30 06/04/20 13:00 60 23 97 Mechanical Ventilator 30.00 06/04/20 12:00 58 11 92 Mechanical Ventilator 30.00 I & O 06/05/20 07:00 Intake Total 4345 ml Output Total 8835 ml Balance -4490 ml Capillary Refill : Less Than 3 Seconds General Appearance: No Apparent Distress HEENT: Normal ENT Inspection Neck: Full Range of Motion Respiratory: Rhonci, Wheezing Cardiovascular: Regular Rate, Rhythm Gastrointestinal: normal bowel sounds, non tender, soft Extremity: Normal Capillary Refill Neurologic/Psychiatric: Alert Skin: Normal Color Lymphatic: No Adenopathy Results Lab Laboratory Tests 06/04/20 11:55: Glucometer 105 06/04/20 18:42: Glucometer 106 06/04/20 23:55: Glucometer 111H 06/05/20 03:10: White Blood Count 9.6, Red Blood Count 2.57L, Hemoglobin 8.0L, Hematocrit 24L, Mean Corpuscular Volume 95, Mean Corpuscular Hemoglobin 31, Mean Corpuscular Hemoglobin Concent 33, Red Cell Distribution Width 19.9H, Platelet Count 129L, Mean Platelet Volume 11.7, Immature Granulocyte % (Auto) 1, Neutrophils (%) (Auto) 58, Lymphocytes (%) (Auto) 23, Monocytes (%) (Auto) 14H, Eosinophils (%) (Auto) 4, Basophils (%) (Auto) 1, Neutrophils # (Auto) 5.5, Lymphocytes # (Auto) 2.2, Monocytes # (Auto) 1.3H, Eosinophils # (Auto) 0.4H, Basophils # (Auto) 0.1, Immature Granulocyte # (Auto) 0.1, Blood Gas Puncture Site LEFT ART LINE, Blood Gas Patient Temperature 35.9, Arterial Blood pH 7.45H, Arterial Blood Partial Pressure CO2 26L, Arterial Blood Partial Pressure O2 91, Arterial Blood HCO3 18L , Arterial Blood Total CO2 18.6L, Arterial Blood Oxygen Saturation 99, Arterial Blood Base Excess -5.8L, German Test ART LINE, Blood Gas Ventilator Setting YES, Blood Gas Inspired Oxygen 30%, Sodium Level 136, Potassium Level 3.5L, Chloride Level 112H, Carbon Dioxide Level 17L, Anion Gap 7, Blood Urea Nitrogen 12, Creatinine 0.62, Estimat Glomerular Filtration Rate > 60, BUN/Creatinine Ratio 19, Glucose Level 126H, Calcium Level 7.0L, Phosphorus Level 2.2L, Magnesium Level 1.5L 06/05/20 11:09: Glucometer 107 Microbiology 05/30/20 Gram Stain - Final, Complete 05/30/20 Sputum Culture - Final, Complete Usual upper respiratory josé miguel 05/29/20 Blood Culture - Final, Complete Enterococcus faecalis Assessment/Plan Assessment/Plan Assess & Plan/Chief Complaint sepsis, resp failure, anemia secondary severe gastritis, liver cirrhosis vent ween per ICU. cont PPI. may start tube feeds at any time. s/p paracentesis. will remove when less sx and significant abd decompression. Clinical Quality Measures DVT/VTE Risk/Contraindication: Risk Factor Score Per Nursin RFS Level Per Nursing on Admit: 4+=Very High Contraindications-Pharm: Other *list below* Other: PT IS GI BLEED- NO VTE MEDICATION ORDERED AT THIS TIME. WILL USE SCD'S. JOY LENOARD MD Jun 05, 2020 11:54
[2020-06-05] MEDS ORDERED: DexMEDEtomidine PRE MIX 100 ML IV ONE (12:44)
[2020-06-05] MEDS ORDERED: ALBUMIN 25% 25 GM/100 ML 100 ML IV ONE (13:15)
--- NOTE | 2020-06-05 15:01 | Progress Note - Hospitalist ---
TRICE FERRIS MED STUDENT 06/05/20 1501: Subjective HPI/CC On Admission Date Seen by Provider: Jun 05, 2020 Time Seen by Provider: 07:45 Dustin Solares is a 59 year old male with PMH alcohol dependence who presented with hematemesis. He is a poor historian. He reports that he has been having bloody emesis and melena for an undetermined amount of time. He reports drinking every day. He denies fevers and chills. He denies trouble breathing and cough. He reports abdominal swelling. Subjective/Events-last exam Dustin is still sedated and intubated. While being examined he was coughing on the vent. He nodded when being asked about starting the physical exam. Review of Systems Unable to obtain due to intubation status Focused Exam Time of Focused Exam: 14:30 Objective Exam Vital Signs Vital Signs Date Time Temp Pulse Resp B/P (MAP) Pulse Ox O2 Delivery O2 Flow Rate FiO2 06/05/20 14:00 67 25 76/48 (57) Mechanical Ventilator 21.00 06/05/20 13:00 86 06/05/20 12:18 36.3 06/05/20 08:00 21 Capillary Refill : Less Than 3 Seconds General Appearance: Mild Distress Neck: Non Tender, Supple; No Lymphadenopathy (L), No Lymphadenopathy (R) Respiratory: Rhonci (Bilaterally ), Other (Endotracheal Intubation ) Cardiovascular: No Murmur, Normal Peripheral Pulses, Bradycardia Gastrointestinal: Abnormal Bowel Sounds (Absent bowel sounds ), Distended Extremity: No Pedal Edema Skin: Normal Color, Warm/Dry; No Diaphoresis Lymphatic: No Adenopathy Results/Procedures Lab Laboratory Tests 06/05/20 03:10 Patient resulted labs reviewed. Imaging: Reviewed Imaging Report Assessment/Plan Assessment and Plan Assess & Plan/Chief Complaint Acute GI Bleed with Hemorrhagic Shock Most likely due to upper GI variceal bleed Surgery consulted, appreciate assistance, S/P EGD performed on 05/31/20 Hgb is 8.0 today Blood pressure 110/58 Discontinue Octreotide Continue Norepinephrine @ 0.1 mcg/kg/min Endotracheal Intubation FiO2 at 21%. peep at 5.0 Hgb stable at 8.0 Pt has received 2 units of packed rbcs Continue Precedex @ 0.2 mcg/kg/hr Pulmonary consultation, appreciate assistance Plan is to decrease sedation and attempt extubation today Hepatic Encephalopathy Continue Rifaximin 550 mg, PO, BID Continue Lactulose 10 gm, PO, qd History of peptic ulcers Continue Pantoprazole 40 mg, IV, BID Decompensated Alcoholic Cirrhosis Acute Kidney Injury Currently BUN 12, Cr 0.62 Lactic Acidosis DVT prophylaxis Held due to GI bleed Continue sequential compression devices Clinical Quality Measures DVT/VTE Risk/Contraindication: Risk Factor Score Per Nursin RFS Level Per Nursing on Admit: 4+=Very High Contraindications-Pharm: Other *list below* Other: PT IS GI BLEED- NO VTE MEDICATION ORDERED AT THIS TIME. WILL USE SCD'S. LISA CALLOWAY MD 06/05/202027: Assessment/Plan Assessment and Plan Assess & Plan/Chief Complaint Pt stable from yesterday. Still on pressors but tolerated thoracentesis yesterday with ~6 liters out. Received albumin replacement. Discussed with pulm and plans to extubate later today. Hgb stable. Monitor closely in the ICU. Supervisory-Addendum Brief Verification & Attestation Participated in pt care: history, MDM, physical Personally performed: exam, history, MDM, supervision of care Care discussed with: Medical Student Procedures: n/a Results interpretation: Verified all documentation Verification and Attestation of Medical Student E/M Service A medical student performed and documented this service in my presence. I reviewed and verified all information documented by the medical student and made modifications to such information, when appropriate. I personally performed the physical exam and medical decision making. Lisa Calloway, Jun 05, 2020,20:26 TRICE FERRIS MED STUDENT Jun 05, 2020 15:01 LISA CALLOWAY MD Jun 05, 2020 20:28
[2020-06-05] MEDS ORDERED: HALOPERIDOL 5 MG/ML (HALDOL) VIAL ONE (15:53)
[2020-06-05] MEDS: LACTATED RINGERS 1,000 ML IV SCH (16:05)
[2020-06-05] MEDS: NS IV 500 ML 500 ML IV SCH (16:39)
[2020-06-05] MEDS: LORazepam INJ 2 MG/ML (ATIVAN) VIAL IVP PRN (16:49)
[2020-06-06] MEDS: DexMEDEtomidine PRE MIX 100 ML IV SCH ×2 (01:58→05:15)
[2020-06-06] MEDS: NOREPINEPHRINE 4 MG/250 ML 250 ML IV SCH ×2 (01:58→22:18)
[2020-06-06 03:13] LABS: BASOPHILS # (AUTO) 0.1 10^3/uL (0.0-0.1); BASOPHILS % (AUTO) 1 % (0-10); EOSINOPHILS # (AUTO) 0.4 10^3/uL (0.0-0.3); EOSINOPHILS % (AUTO) 4 % (0-10); HEMATOCRIT 25 % (40-54); LYMPHOCYTES # (AUTO) 2.4 10^3/uL (1.0-4.0); LYMPHOCYTES % (AUTO) 24 % (12-44); MEAN CORPUSCULAR HEMOGLOBIN 30 pg (25-34); MEAN CORPUSCULAR HGB CONC 32 g/dL (32-36); MEAN CORPUSCULAR VOLUME 94 fL (80-99); MEAN PLATELET VOLUME 11.5 fL (9.0-12.2); MONOCYTES # (AUTO) 1.4 10^3/uL (0.0-1.0); MONOCYTES % (AUTO) 14 % (0-12); NEUTROPHILS # (AUTO) 5.9 10^3/uL (1.8-7.8); NEUTROPHILS % (AUTO) 58 % (42-75); PLATELET COUNT 157 10^3/uL (130-400); WHITE BLOOD COUNT 10.2 10^3/uL (4.3-11.0)
[2020-06-06 03:35] LABS: BUN/CREATININE RATIO 15; CALCIUM 6.9 MG/DL (8.5-10.1); CARBON DIOXIDE 17 MMOL/L (21-32); CHLORIDE 112 MMOL/L (98-107); CREATININE SERUM 0.61 MG/DL (0.60-1.30); GFR ESTIMATED > 60; GLUCOSE 230 MG/DL (70-105); MAGNESIUM 1.5 MG/DL (1.6-2.4); POTASSIUM 3.8 MMOL/L (3.6-5.0); SODIUM 135 MMOL/L (135-145); TRIGLYCERIDES 87 MG/DL (<150)
[2020-06-06] MEDS: MAGNESIUM 1 GM/100 ML IVPB 100 ML IV SCH ×3 (03:58→06:13)
[2020-06-06] MEDS: POTASSIUM CL 10MEQ/50ML IVPB 50 ML IV SCH (03:58)
[2020-06-06] MEDS: KCL 20 MEQ TAB (K-DUR) PO SCH (03:59)
[2020-06-06] MEDS: NS IV 500 ML 500 ML IV SCH ×2 (05:12→22:18)
[2020-06-06] MEDS: LACTATED RINGERS 1,000 ML IV SCH ×2 (05:12→20:07)
--- NOTE | 2020-06-06 05:37 | Pulmonary Progress Note ---
Subjective Time Seen by a Provider: 05:32 Subjective/Events-last exam Pt is still requiring Levophed and is on Precedex Sepsis Event Evaluation Height, Weight, BMI Height: '" Weight: lbs. oz. kg; 21.00 BMI Method: Focused Exam Time of Focused Exam: 14:30 Exam Exam Vital Signs Date Time Temp Pulse Resp B/P (MAP) Pulse Ox O2 Delivery O2 Flow Rate FiO2 06/06/20 05:15 36.6 73 20 128/69 94 Nasal Cannula 2.00 06/06/20 05:00 64 20 115/67 (83) 94 Nasal Cannula 2.00 06/06/20 04:00 64 23 125/75 (92) 94 Nasal Cannula 2.00 06/06/20 03:00 65 21 119/78 (92) 92 Nasal Cannula 2.00 06/06/20 02:00 66 20 119/71 (87) 94 Nasal Cannula 2.00 06/06/20 01:58 36.6 73 20 128/69 94 Nasal Cannula 2.00 06/06/20 01:58 73 128/69 06/06/20 01:00 69 20 127/74 (91) 94 Nasal Cannula 2.00 06/06/20 01:00 69 06/06/20 00:00 71 20 129/69 (89) 94 Nasal Cannula 2.00 06/05/20 23:28 36.6 73 20 128/69 94 Nasal Cannula 2.00 06/05/20 23:00 73 20 128/69 (88) 94 Nasal Cannula 2.00 06/05/20 22:00 74 20 126/82 (97) 94 Nasal Cannula 2.00 06/05/20 21:00 75 19 122/64 (83) 94 Nasal Cannula 2.00 06/05/20 20:48 77 127/79 06/05/20 20:32 36.6 77 22 127/79 93 Nasal Cannula 2.00 06/05/20 20:01 36.6 06/05/20 20:00 76 20 103/56 (72) 94 Nasal Cannula 2.00 06/05/20 20:00 95 Room Air 06/05/20 19:00 77 06/05/20 19:00 76 20 122/73 (89) 94 Nasal Cannula 2.00 06/05/20 18:00 79 22 127/79 (95) 93 Nasal Cannula 2.00 06/05/20 17:00 78 22 141/75 (97) Nasal Cannula 2.00 06/05/20 16:43 83 06/05/20 16:42 84 91/56 06/05/20 16:35 36.3 06/05/20 16:00 69 24 92/68 (76) Room Air 06/05/20 15:00 66 22 98/60 (73) Room Air 06/05/20 14:00 67 25 76/48 (57) Room Air 06/05/20 13:09 70 06/05/20 13:00 64 22 86 Room Air 06/05/20 12:44 78 Room Air 06/05/20 12:18 36.3 06/05/20 12:00 64 12 104/91 (95) Room Air 06/05/20 11:00 55 24 96 Room Air 06/05/20 10:45 95 Room Air 06/05/20 10:00 54 24 96 Mechanical Ventilator 21.00 06/05/20 09:00 53 24 98 Mechanical Ventilator 21.00 06/05/20 08:13 36.2 06/05/20 08:00 52 13 94 Mechanical Ventilator 21.00 06/05/20 08:00 98 Mechanical Ventilator 21 06/05/20 07:00 54 23 92 Mechanical Ventilator 21.00 06/05/20 06:48 54 24 92 21 06/05/20 06:42 55 06/05/20 06:00 54 23 97 Mechanical Ventilator 21.00 06/05/20 05:39 54 110/58 I & O 06/06/20 07:00 Intake Total 2735 ml Output Total 3550 ml Balance -815 ml Height & Weight Height: '" Weight: lbs. oz. kg; 21.00 BMI Method: General Appearance: Mild Distress HEENT: Normal ENT Inspection Neck: Non Tender, Supple; No Lymphadenopathy (L), No Lymphadenopathy (R) Respiratory: Rhonci (Bilaterally ), Other (Endotracheal Intubation ) Cardiovascular: No Murmur, Normal Peripheral Pulses, Bradycardia Capillary Refill: Less Than 3 Seconds Peripheral Pulses: 2+ Radial Pulses (R), 2+ Radial Pulses (L) Gastrointestinal: normal bowel sounds, non tender, soft Extremity: No Pedal Edema Neurologic/Psychiatric: Alert Skin: Normal Color, Warm/Dry; No Diaphoresis Lymphatic: No Adenopathy Results Lab Laboratory Tests 06/05/20 03:10 06/06/20 03:07 Assessment/Plan Assessment/Plan Encephalopathy -DC precedex Acute GIB s/p 4 units PRBC - Controlled -Hgb stable -Protonix BID -s/p EGD ES liver failure -Pt has abdominal drain. -2 liters over the last 12hours Hypomag -Replace hypotension -Monitor -requiring Levophed - albumin Alcohol dependance -D/C CIWA protocol -Pt has been getting ativan Hepatic encpephalopathy with lethargy and agitation -Sedated on vent -on rifaxamine Metabolic acidosis -improved - IVF LR @ 75/hr Acute renal failure -Monitor OPAL CHAVES DO Jun 06, 2020 05:37
[2020-06-06] MEDS: ALBUMIN 25% 25 GM/100 ML 100 ML IV SCH ×3 (06:09→23:11)
--- NOTE | 2020-06-06 07:51 | Diagnostic Imaging Report ---
Indication: Gastrointestinal bleeding Portable AP view of chest is obtained with comparison made to study of one day earlier. There may be slight improvement in aeration of left lung with continued pulmonary venous congestion and perihilar edema and/or pneumonitis. There has been mild increase in right perihilar edema and/or pneumonitis with probable mild right pleural fluid. No pneumothorax is identified. IMPRESSION: Mild increase in right perihilar edema and/or pneumonitis and probable right pleural fluid with slight improvement in aeration of the left lung. Dictated by: Dictated on workstation # [id number]
[2020-06-06] MEDS: PANTOPRAZOLE 40 MG (PROTONIX) VIAL IV SCH ×2 (08:42→20:35)
[2020-06-06] MEDS: LACTULOSE SYRUP 10GM/15ML (ENULOSE) 30ML UDC PO SCH ×4 (08:45→20:07)
[2020-06-06] MEDS: RIFAXIMIN 550 MG TABLET (XIFAXAN) PO SCH ×2 (08:45→20:07)
--- NOTE | 2020-06-06 09:03 | Progress Note - Hospitalist ---
Subjective HPI/CC On Admission Date Seen by Provider: Jun 06, 2020 Time Seen by Provider: 08:54 Dustin Solares is a 59 year old male with PMH alcohol dependence who presented with hematemesis. He is a poor historian. He reports that he has been having bloody emesis and melena for an undetermined amount of time. He reports drinking every day. He denies fevers and chills. He denies trouble breathing and cough. He reports abdominal swelling. Subjective/Events-last exam Pt was extubated yesterday. Sleeping this more. Briefly opens eyes to touch but then quickly falls back asleep. Focused Exam Time of Focused Exam: 14:30 Objective Exam Vital Signs Vital Signs Date Time Temp Pulse Resp B/P (MAP) Pulse Ox O2 Delivery O2 Flow Rate FiO2 06/06/20 08:00 62 22 94/64 (74) 92 Nasal Cannula 2.00 06/06/20 07:50 36.4 06/05/20 08:00 21 Capillary Refill : Less Than 3 Seconds General Appearance: No Apparent Distress, Chronically ill Respiratory: Lungs Clear, No Respiratory Distress Cardiovascular: Regular Rate, Rhythm, No Murmur Neurologic/Psychiatric: Other (arousable but sleepy) Results/Procedures Lab Laboratory Tests 06/06/20 03:07 Patient resulted labs reviewed. Imaging: Reviewed Imaging Report Assessment/Plan Assessment and Plan Assess & Plan/Chief Complaint Acute blood loss anemia Hematemesis Upper GI bleeding due to variceal bleed History of peptic ulcer Likely decompensated alcoholic cirrhosis Hepatic encephalopathy Lactic acidosis Acute kidney injury Endotracheally intubated Hgb stable around 8.0 s/p 2 units PRBCs total Continue IV PPI BID and Octreotide Continue Levophed for goal MAP of 60 and LR at 75ml/hr Surgery consulted, appreciate assistance, s/p EGD on 05/31 Rocephin for SBP prophylaxis Paracentesis on 06/04 and continues to have high volume output Albumin ordered Await pleural fluid culture Pulm consulted for vent management, appreciate recs DVT prophylaxis: held due to GI bleed Critical Care Critically Ill Patient Clinical Quality Measures DVT/VTE Risk/Contraindication: Risk Factor Score Per Nursin RFS Level Per Nursing on Admit: 4+=Very High Contraindications-Pharm: Other *list below* Other: PT IS GI BLEED- NO VTE MEDICATION ORDERED AT THIS TIME. WILL USE JAMES GREENWOOD MD Jun 06, 2020 09:03
--- NOTE | 2020-06-06 12:16 | Progress Note ---
Subjective Date Seen by a Provider: Jun 06, 2020 Time Seen by a Provider: 11:00 Subjective/Events-last exam patient extubated. confused. likely some level hepatic encephalpathy. Focused Exam Time of Focused Exam: 14:30 Objective Exam Vital Signs Date Time Temp Pulse Resp B/P (MAP) Pulse Ox O2 Delivery O2 Flow Rate FiO2 06/06/20 12:00 72 27 82/57 (65) 95 Nasal Cannula 2.00 06/06/20 11:56 35.3 06/06/20 11:00 72 24 96/52 (67) 78 Nasal Cannula 2.00 06/06/20 10:00 62 22 87/52 (64) 92 Nasal Cannula 2.00 06/06/20 09:00 61 28 77/67 (70) 93 Nasal Cannula 2.00 06/06/20 08:00 62 22 94/64 (74) 92 Nasal Cannula 2.00 06/06/20 07:50 36.4 06/06/20 07:00 62 23 106/62 (77) 94 Nasal Cannula 2.00 06/06/20 07:00 62 06/06/20 06:00 64 20 122/77 (92) 94 Nasal Cannula 2.00 06/06/20 05:15 36.6 73 20 128/69 94 Nasal Cannula 2.00 06/06/20 05:00 36.8 06/06/20 05:00 64 20 115/67 (83) 94 Nasal Cannula 2.00 06/06/20 04:00 64 23 125/75 (92) 94 Nasal Cannula 2.00 06/06/20 03:00 65 21 119/78 (92) 92 Nasal Cannula 2.00 06/06/20 02:00 66 20 119/71 (87) 94 Nasal Cannula 2.00 06/06/20 01:58 36.6 73 20 128/69 94 Nasal Cannula 2.00 06/06/20 01:58 73 128/69 06/06/20 01:00 69 20 127/74 (91) 94 Nasal Cannula 2.00 06/06/20 01:00 69 06/06/20 00:28 37.0 06/06/20 00:00 71 20 129/69 (89) 94 Nasal Cannula 2.00 06/05/20 23:28 36.6 73 20 128/69 94 Nasal Cannula 2.00 06/05/20 23:00 73 20 128/69 (88) 94 Nasal Cannula 2.00 06/05/20 22:00 74 20 126/82 (97) 94 Nasal Cannula 2.00 06/05/20 21:00 75 19 122/64 (83) 94 Nasal Cannula 2.00 06/05/20 20:48 77 127/79 06/05/20 20:32 36.6 77 22 127/79 93 Nasal Cannula 2.00 06/05/20 20:01 36.6 06/05/20 20:00 76 20 103/56 (72) 94 Nasal Cannula 2.00 06/05/20 20:00 95 Room Air 06/05/20 19:00 77 06/05/20 19:00 76 20 122/73 (89) 94 Nasal Cannula 2.00 06/05/20 18:00 79 22 127/79 (95) 93 Nasal Cannula 2.00 06/05/20 17:00 78 22 141/75 (97) Nasal Cannula 2.00 06/05/20 16:43 83 06/05/20 16:42 84 91/56 06/05/20 16:35 36.3 06/05/20 16:00 69 24 92/68 (76) Room Air 06/05/20 15:00 66 22 98/60 (73) Room Air 06/05/20 14:00 67 25 76/48 (57) Room Air 06/05/20 13:09 70 06/05/20 13:00 64 22 86 Room Air 06/05/20 12:44 78 Room Air 06/05/20 12:18 36.3 I & O 06/06/20 07:00 Intake Total 2835 ml Output Total 4600 ml Balance -1765 ml Capillary Refill : Less Than 3 Seconds General Appearance: No Apparent Distress HEENT: PERRL/EOMI Neck: Full Range of Motion Respiratory: Decreased Breath Sounds, Rhonci Cardiovascular: Regular Rate, Rhythm Gastrointestinal: normal bowel sounds, non tender, soft Extremity: Normal Capillary Refill Skin: Normal Color Lymphatic: No Adenopathy Results Lab Laboratory Tests 06/05/20 17:39: Glucometer 96 06/05/20 23:36: Glucometer 109 06/06/20 03:07: White Blood Count 10.2, Red Blood Count 2.69L, Hemoglobin 8.0L, Hematocrit 25L, Mean Corpuscular Volume 94, Mean Corpuscular Hemoglobin 30, Mean Corpuscular Hemoglobin Concent 32, Red Cell Distribution Width 19.2H, Platelet Count 157, Mean Platelet Volume 11.5, Immature Granulocyte % (Auto) 0, Neutrophils (%) (Aut o) 58, Lymphocytes (%) (Auto) 24, Monocytes (%) (Auto) 14H, Eosinophils (%) (Auto) 4, Basophils (%) (Auto) 1, Neutrophils # (Auto) 5.9, Lymphocytes # (Auto) 2.4, Monocytes # (Auto) 1.4H, Eosinophils # (Auto) 0.4H, Basophils # (Auto) 0.1, Immature Granulocyte # (Auto) 0.0, Sodium Level 135, Potassium Level 3.8, Chloride Level 112H, Carbon Dioxide Level 17L, Anion Gap 6, Blood Urea Nitrogen 9, Creatinine 0.61, Estimat Glomerular Filtration Rate > 60, BUN/Creatinine Ratio 15, Glucose Level 230H, Calcium Level 6.9L, Phosphorus Level 3.0, Magnesium Level 1.5L, Triglycerides Level 87 06/06/20 11:55: Glucometer 83 Microbiology 05/30/20 Gram Stain - Final, Complete 05/30/20 Sputum Culture - Final, Complete Usual upper respiratory josé miguel 05/29/20 Blood Culture - Final, Complete Enterococcus faecalis Assessment/Plan Assessment/Plan Assess & Plan/Chief Complaint sepsis, resp failure, anemia secondary severe gastritis, liver cirrhosis cont PPI. s/p paracentesis. will remove when less sx and significant abd decompression. Clinical Quality Measures DVT/VTE Risk/Contraindication: Risk Factor Score Per Nursin RFS Level Per Nursing on Admit: 4+=Very High Contraindications-Pharm: Other *list below* Other: PT IS GI BLEED- NO VTE MEDICATION ORDERED AT THIS TIME. WILL USE SCD'S. JOY LEONARD MD Jun 06, 2020 12:16
[2020-06-06] MEDS: LORazepam INJ 2 MG/ML (ATIVAN) VIAL IVP PRN ×2 (13:05→20:05)
--- NOTE | 2020-06-06 14:05 | NUR ---
Note pt was extubated on 06/05, per chart review. Pt currently having difficulty swallowing at this time. Would recommend swallow evaluation to determine appropriate diet order. If pt fails swallow evaluation, pt would likely benefit from enteral nutrition. Will continue to follow and reassess as needs, intake, and status change. Cinthia Cole MS RD LD [phone] cell
[2020-06-06 17:14] LABS: BASOPHILS % (AUTO) 0 % (0-10); EOSINOPHILS # (AUTO) 0.2 10^3/uL (0.0-0.3); EOSINOPHILS % (AUTO) 2 % (0-10); HEMATOCRIT 24 % (40-54); HEMOGLOBIN 7.4 g/dL (13.3-17.7); LYMPHOCYTES # (AUTO) 1.4 10^3/uL (1.0-4.0); LYMPHOCYTES % (AUTO) 15 % (12-44); MEAN CORPUSCULAR HEMOGLOBIN 30 pg (25-34); MEAN CORPUSCULAR HGB CONC 32 g/dL (32-36); MEAN CORPUSCULAR VOLUME 96 fL (80-99); MEAN PLATELET VOLUME 11.5 fL (9.0-12.2); MONOCYTES # (AUTO) 1.1 10^3/uL (0.0-1.0); MONOCYTES % (AUTO) 11 % (0-12); NEUTROPHILS % (AUTO) 72 % (42-75); PLATELET COUNT 142 10^3/uL (130-400); WHITE BLOOD COUNT 9.7 10^3/uL (4.3-11.0)
[2020-06-06 18:54] LABS: ABG OXYGEN SATURATION 98 % (94-100); ABG PCO2 36 MMHG (35-45); ABG PH 7.35 (7.37-7.43); ABG PO2 99 MMHG (79-93); ABG TCO2 20.6 MMOL/L (21.0-31.0)
[2020-06-06 19:03] LABS: ALLENS TEST POS; INSPIRED O2 2L; PATIENT TEMP 99.6; VENTILATOR NO
[2020-06-06] MEDS: HALOPERIDOL 5 MG/ML (HALDOL) VIAL IM PRN (20:05)
--- NOTE | 2020-06-06 21:43 | NUR ---
NOTIFIED E[facility] OF SEPSIS RISK, NEW ORDERS RECEIVED.
[2020-06-06 22:25] LABS: BASOPHILS # (AUTO) 0.1 10^3/uL (0.0-0.1); BASOPHILS % (AUTO) 1 % (0-10); CLARITY,URINE CLEAR; COLOR,URINE YELLOW; EOSINOPHILS # (AUTO) 0.1 10^3/uL (0.0-0.3); EOSINOPHILS % (AUTO) 1 % (0-10); GLUCOSE, URINE (UA) NEGATIVE (NEGATIVE); HEMATOCRIT 24 % (40-54); HEMOGLOBIN 7.5 g/dL (13.3-17.7); KETONES,URINE TRACE (NEGATIVE); LEUKOCYTE ESTERASE ,URINE TRACE (NEGATIVE); LYMPHOCYTES # (AUTO) 1.2 10^3/uL (1.0-4.0); LYMPHOCYTES % (AUTO) 12 % (12-44); MEAN CORPUSCULAR HEMOGLOBIN 30 pg (25-34); MEAN CORPUSCULAR HGB CONC 31 g/dL (32-36); MEAN CORPUSCULAR VOLUME 96 fL (80-99); MEAN PLATELET VOLUME 10.9 fL (9.0-12.2); MONOCYTES # (AUTO) 1.2 10^3/uL (0.0-1.0); MONOCYTES % (AUTO) 12 % (0-12); NEUTROPHILS # (AUTO) 7.2 10^3/uL (1.8-7.8); NEUTROPHILS % (AUTO) 74 % (42-75); NITRITE,URINE NEGATIVE (NEGATIVE); PH,URINE 5.5 (5-9); PLATELET COUNT 134 10^3/uL (130-400); PROTEIN,URINE 2+ (NEGATIVE); WHITE BLOOD COUNT 9.8 10^3/uL (4.3-11.0)
[2020-06-06 22:47] LABS: RBC,URINE 25-50 /HPF
[2020-06-06 22:48] LABS: AMORPHOUS SEDIMENT,UR FEW AMOR URATES /LPF; BACTERIA,URINE TRACE /HPF
[2020-06-06 22:50] LABS: BILIRUBIN,URINE 2+ (NEGATIVE)
[2020-06-06 23:21] LABS: HYPOCHROMASIA MODERATE; LYMPHOCYTES % (MANUAL) 10 %; MICROCYTOSIS MODERATE; MONOCYTES % (MANUAL) 10 %; NEUTROPHILS % (MANUAL) 80 %
[2020-06-07] VITALS (7 sets, daily range): BP systolic 108–151; BP diastolic 63–95
[2020-06-07] MEDS: HALOPERIDOL 5 MG/ML (HALDOL) VIAL IM PRN ×2 (00:37→21:40)
[2020-06-07] MEDS: LORazepam INJ 2 MG/ML (ATIVAN) VIAL IVP PRN ×2 (02:30→15:20)
[2020-06-07 02:52] LABS: EOSINOPHILS # (AUTO) 0.1 10^3/uL (0.0-0.3); EOSINOPHILS % (AUTO) 1 % (0-10); MEAN CORPUSCULAR HEMOGLOBIN 31 pg (25-34)
[2020-06-07 02:54] LABS: BASOPHILS % (AUTO) 0 % (0-10); HEMATOCRIT 22 % (40-54); HEMOGLOBIN 7.2 g/dL (13.3-17.7); LYMPHOCYTES # (AUTO) 1.6 10^3/uL (1.0-4.0); LYMPHOCYTES % (AUTO) 16 % (12-44); MEAN CORPUSCULAR HGB CONC 33 g/dL (32-36); MEAN CORPUSCULAR VOLUME 94 fL (80-99); MEAN PLATELET VOLUME 11.7 fL (9.0-12.2); MONOCYTES # (AUTO) 1.4 10^3/uL (0.0-1.0); MONOCYTES % (AUTO) 14 % (0-12); NEUTROPHILS % (AUTO) 69 % (42-75); PLATELET COUNT 132 10^3/uL (130-400); WHITE BLOOD COUNT 10.1 10^3/uL (4.3-11.0)
[2020-06-07 03:17] LABS: CHLORIDE 112 MMOL/L (98-107); POTASSIUM 4.2 MMOL/L (3.6-5.0); SODIUM 139 MMOL/L (135-145)
[2020-06-07 03:18] LABS: CALCIUM 7.6 MG/DL (8.5-10.1)
[2020-06-07 03:19] LABS: GLUCOSE 85 MG/DL (70-105)
[2020-06-07 03:20] LABS: CARBON DIOXIDE 19 MMOL/L (21-32)
[2020-06-07 03:23] LABS: BUN/CREATININE RATIO 13; CREATININE SERUM 0.69 MG/DL (0.60-1.30); GFR ESTIMATED > 60
[2020-06-07 03:25] LABS: MAGNESIUM 1.7 MG/DL (1.6-2.4)
--- NOTE | 2020-06-07 03:33 | Pulmonary Progress Note ---
TROY CAMPOVERDE,MED STUDENT 06/07/20 0333: Subjective Date Seen by a Provider: Jun 07, 2020 Time Seen by a Provider: 03:10 Subjective/Events-last exam Now off Precedex, not currently requiring Levophed Sepsis Event Evaluation Height, Weight, BMI Height: '" Weight: lbs. oz. kg; 21.00 BMI Method: Focused Exam Lactate Level 06/06/20 22:10: Lactic Acid Level 0.94 Time of Focused Exam: 14:30 Exam Exam Vital Signs Date Time Temp Pulse Resp B/P (MAP) Pulse Ox O2 Delivery O2 Flow Rate FiO2 06/06/20 23:13 37.9 06/06/20 23:00 114 28 131/69 (89) 95 Nasal Cannula 2.00 06/06/20 22:00 109 30 114/59 (77) 95 Nasal Cannula 2.00 06/06/20 21:00 116 30 101/51 (68) 94 Nasal Cannula 2.00 06/06/20 20:00 114 25 115/76 (89) 93 Nasal Cannula 2.00 06/06/20 20:00 95 Nasal Cannula 2.00 06/06/20 20:00 37.9 06/06/20 19:28 38.1 06/06/20 19:00 116 20 113/68 (83) 94 Nasal Cannula 2.00 06/06/20 19:00 115 06/06/20 18:02 37.2 113 29 112/66 (81) 93 Nasal Cannula 2.00 06/06/20 17:00 37.2 116 25 71/59 (63) 94 Nasal Cannula 2.00 06/06/20 16:00 37.2 97 29 102/53 (69) 95 Nasal Cannula 2.00 06/06/20 15:34 37.2 06/06/20 15:00 100 30 143/68 (93) 93 Nasal Cannula 2.00 06/06/20 14:00 76 27 101/76 (84) 94 Nasal Cannula 2.00 06/06/20 13:00 99 15 98/64 (75) 91 Nasal Cannula 2.00 06/06/20 13:00 96 06/06/20 12:00 72 27 82/57 (65) 95 Nasal Cannula 2.00 06/06/20 11:56 35.3 06/06/20 11:00 72 24 96/52 (67) 78 Nasal Cannula 2.00 06/06/20 10:00 62 22 87/52 (64) 92 Nasal Cannula 2.00 06/06/20 09:00 61 28 77/67 (70) 93 Nasal Cannula 2.00 06/06/20 08:00 93 Nasal Cannula 2.00 06/06/20 08:00 62 22 94/64 (74) 92 Nasal Cannula 2.00 06/06/20 07:50 36.4 06/06/20 07:00 62 23 106/62 (77) 94 Nasal Cannula 2.00 06/06/20 07:00 62 06/06/20 06:00 64 20 122/77 (92) 94 Nasal Cannula 2.00 06/06/20 05:15 36.6 73 20 128/69 94 Nasal Cannula 2.00 06/06/20 05:00 36.8 06/06/20 05:00 64 20 115/67 (83) 94 Nasal Cannula 2.00 06/06/20 04:00 64 23 125/75 (92) 94 Nasal Cannula 2.00 I & O 06/07/20 07:00 Intake Total 150 ml Output Total 2890 ml Balance -2740 ml Height & Weight Height: '" Weight: lbs. oz. kg; 21.00 BMI Method: General Appearance: No Apparent Distress HEENT: PERRL/EOMI Neck: Full Range of Motion Respiratory: Decreased Breath Sounds, Rhonci Cardiovascular: Regular Rate, Rhythm Capillary Refill: Less Than 3 Seconds Peripheral Pulses: 2+ Radial Pulses (R), 2+ Radial Pulses (L) Gastrointestinal: normal bowel sounds, non tender, soft Extremity: Normal Capillary Refill Neurologic/Psychiatric: Other (arousable but sleepy) Skin: Normal Color Lymphatic: No Adenopathy Results Lab Laboratory Tests 06/06/20 03:07 06/06/20 17:03 06/06/20 22:10 06/07/20 02:29 Assessment/Plan Assessment/Plan Encephalopathy -Precedex off Acute GIB s/p 4 units PRBC - Controlled -Hgb stable -Protonix BID -s/p EGD ES liver failure -Pt has abdominal drain. -2 liters over the last 12hours Hypomag -Replace Hypotension -Monitor -maintaining off Levophed Alcohol dependance -D/C [facility] protocol -Pt has been getting ativan Hepatic encpephalopathy with lethargy and agitation -Extubated on 06/05 -SpO2 95% on 2L NC -on rifaxamine Metabolic acidosis -improved - IVF LR @ 75/hr Acute renal failure -Monitor OPAL CHAVES DO 06/07/20 0530: Subjective Time Seen by a Provider: 05:23 Assessment/Plan Assessment/Plan Encephalopathy -Precedex off -Pt is very lethargic. No currently able to take PO meds. -Repeat ammonia level. -Pt may need NG tube so we can give lactulose, and rifaxamine. Acute GIB s/p 4 units PRBC - Controlled -Hgb stable -Protonix BID -s/p EGD -Will transfuse 1 unit of PRBC secondary to persistent decline in hb ES liver failure -Pt has abdominal drain. -2 liters over the last 12hours Hypomag -Replace Hypotension -Monitor -maintaining off Levophed Alcohol dependance -D/C [facility] protocol -Pt has been getting ativan Hepatic encpephalopathy with lethargy and agitation -Extubated on 06/05 -SpO2 95% on 2L NC -on rifaxamine Metabolic acidosis -improved - IVF LR @ 75/hr Acute renal failure -Monitor TROY CAMPOVERDE,MED STUDENT Jun 07, 2020 03:33 OPAL CHAVES DO Jun 07, 2020 05:30
[2020-06-07] MEDS: KCL 20 MEQ TAB (K-DUR) PO SCH (04:21)
[2020-06-07] MEDS: POTASSIUM CL 10MEQ/50ML IVPB 50 ML IV SCH (04:21)
[2020-06-07] MEDS: MAGNESIUM 1 GM/100 ML IVPB 100 ML IV SCH (04:21)
--- NOTE | 2020-06-07 05:22 | Diagnostic Imaging Report ---
Indication: Gastrointestinal bleeding Portable chest 1:00 AM Right extremity PICC line tip projects over the SVC. There are bilateral perihilar alveolar infiltrates. There may be a small right pleural effusion. IMPRESSION: Central vascular congestion with perihilar alveolar infiltrates could be pulmonary edema. There is also a small right pleural effusion. Overall appearance is not appreciably changed from the previous day. Dictated by: Dictated on workstation # [id number]
[2020-06-07] MEDS: ALBUMIN 25% 25 GM/100 ML 100 ML IV SCH (06:28)
[2020-06-07] MEDS: RIFAXIMIN 550 MG TABLET (XIFAXAN) PO SCH ×2 (10:42→21:13)
[2020-06-07] MEDS: PANTOPRAZOLE 40 MG (PROTONIX) VIAL IV SCH ×2 (10:42→21:28)
[2020-06-07] MEDS: NOREPINEPHRINE 4 MG/250 ML 250 ML IV SCH (10:43)
[2020-06-07] MEDS: LACTULOSE SYRUP 10GM/15ML (ENULOSE) 30ML UDC PO SCH ×4 (10:43→21:13)
--- NOTE | 2020-06-07 11:41 | Progress Note ---
Subjective Date Seen by a Provider: Jun 07, 2020 Time Seen by a Provider: 10:00 Subjective/Events-last exam more awake/alert. still has copious ascites drainage. Focused Exam Lactate Level 06/06/20 22:10: Lactic Acid Level 0.94 Time of Focused Exam: 14:30 Objective Exam Vital Signs Date Time Temp Pulse Resp B/P (MAP) Pulse Ox O2 Delivery O2 Flow Rate FiO2 06/07/20 08:11 37.5 06/07/20 08:00 95 Nasal Cannula 2.00 06/07/20 07:00 109 06/07/20 06:00 113 28 111/70 (84) 96 Nasal Cannula 2.00 06/07/20 05:00 106 26 111/62 (78) 96 Nasal Cannula 2.00 06/07/20 04:00 113 29 115/67 (83) 95 Nasal Cannula 2.00 06/07/20 03:00 107 26 108/62 (77) 96 Nasal Cannula 2.00 06/07/20 02:00 112 27 105/59 (74) 95 Nasal Cannula 2.00 06/07/20 01:00 105 06/07/20 01:00 105 25 121/75 (90) 95 Nasal Cannula 2.00 06/07/20 00:00 111 30 147/77 (100) 95 Nasal Cannula 2.00 06/06/20 23:13 37.9 06/06/20 23:00 114 28 131/69 (89) 95 Nasal Cannula 2.00 06/06/20 22:00 109 30 114/59 (77) 95 Nasal Cannula 2.00 06/06/20 21:00 116 30 101/51 (68) 94 Nasal Cannula 2.00 06/06/20 20:00 114 25 115/76 (89) 93 Nasal Cannula 2.00 06/06/20 20:00 95 Nasal Cannula 2.00 06/06/20 20:00 37.9 06/06/20 19:28 38.1 06/06/20 19:00 116 20 113/68 (83) 94 Nasal Cannula 2.00 06/06/20 19:00 115 06/06/20 18:02 37.2 113 29 112/66 (81) 93 Nasal Cannula 2.00 06/06/20 17:00 37.2 116 25 71/59 (63) 94 Nasal Cannula 2.00 06/06/20 16:00 37.2 97 29 102/53 (69) 95 Nasal Cannula 2.00 06/06/20 15:34 37.2 06/06/20 15:00 100 30 143/68 (93) 93 Nasal Cannula 2.00 06/06/20 14:00 76 27 101/76 (84) 94 Nasal Cannula 2.00 06/06/20 13:00 99 15 98/64 (75) 91 Nasal Cannula 2.00 06/06/20 13:00 96 06/06/20 12:00 72 27 82/57 (65) 95 Nasal Cannula 2.00 06/06/20 11:56 35.3 I & O 06/07/20 07:00 Intake Total 150 ml Output Total 4065 ml Balance -3915 ml Capillary Refill : Less Than 3 Seconds General Appearance: No Apparent Distress HEENT: PERRL/EOMI Neck: Full Range of Motion Respiratory: Chest Non Tender, Rhonci Cardiovascular: Regular Rate, Rhythm Gastrointestinal: normal bowel sounds, non tender, soft Extremity: Normal Capillary Refill Neurologic/Psychiatric: Alert, Oriented x3 Skin: Normal Color Lymphatic: No Adenopathy Results Lab Laboratory Tests 06/06/20 11:55: Glucometer 83 06/06/20 17:03: White Blood Count 9.7, Red Blood Count 2.45L, Hemoglobin 7.4L, Hematocrit 24L, Mean Corpuscular Volume 96, Mean Corpuscular Hemoglobin 30, Mean Corpuscular Hemoglobin Concent 32, Red Cell Distribution Width 19.1H, Platelet Count 142, Mean Platelet Volume 11.5, Immature Granulocyte % (Auto) 0, Neutrophils (%) (A uto) 72, Lymphocytes (%) (Auto) 15, Monocytes (%) (Auto) 11, Eosinophils (%) (Auto) 2, Basophils (%) (Auto) 0, Neutrophils # (Auto) 7.0, Lymphocytes # (Auto) 1.4, Monocytes # (Auto) 1.1H, Eosinophils # (Auto) 0.2, Basophils # (Auto) 0.0, Immature Granulocyte # (Auto) 0.0 06/06/20 17:18: Glucometer 71 06/06/20 18:45: Blood Gas Puncture Site RGHT RAD, Blood Gas Patient Temperature 99.6, Arterial Blood pH 7.35L, Arterial Blood Partial Pressure CO2 36, Arterial Blood Partial Pressure O2 99H, Arterial Blood HCO3 20L, Arterial Blood Total CO2 20.6L, Arterial Blood Oxygen Saturation 98, Arterial Blood Base Excess -5.0L, German Test POS, Blood Gas Ventilator Setting NO, Blood Gas Inspired Oxygen 2L 06/06/20 22:10: White Blood Count 9.8, Red Blood Count 2.52L, Hemoglobin 7.5L, Hematocrit 24L, Mean Corpuscular Volume 96, Mean Corpuscular Hemoglobin 30, Mean Corpuscular Hemoglobin Concent 31L, Red Cell Distribution Width 19.2H, Platelet Count 134, Mean Platelet Volume 10.9, Immature Granulocyte % (Auto) 0, Neutrophils (%) (Auto) 74, Lymphocytes (%) (Auto) 12, Monocytes (%) (Auto) 12, Eosinophils (%) (Auto) 1, Basophils (%) (Auto) 1, Neutrophils # (Auto) 7.2, Lymphocytes # (Auto) 1.2, Monocytes # (Auto) 1.2H, Eosinophils # (Auto) 0.1, Basophils # (Auto) 0.1, Immature Granulocyte # (Auto) 0.0, Neutrophils % (Manual) 80, Lymphocytes % (Manual) 10, Monocytes % (Manual) 10, Hypochromasia MODERATE, Microcytosis MODERATE, Urine Color YELLOW, Urine Clarity CLEAR, Urine pH 5.5, Urine Specific [place] >=1.030, Urine Protein 2+H, Urine Glucose (UA) NEGATIVE, Urine Ketones TRACEH, Urine Nitrite NEGATIVE, Urine Bilirubin 2+H, Urine Urobilinogen 1.0, Urine Leukocyte Esterase TRACEH, Urine RBC (Auto) 3+H, Urine RBC 25-50H, Urine W BC 2-5, Urine Crystals PRESENTH, Urine Amorphous Sediment FEW LELO URATESH, Urine Bacteria TRACE, Urine Casts NONE, Urine Mucus MODERATEH, Urine Culture Indicated NO, Lactic Acid Level 0.94, Procalcitonin 0.11H 06/07/20 00:43: Glucometer 83 06/07/20 02:29: White Blood Count 10.1, Red Blood Count 2.34L, Hemoglobin 7.2L, Hematocrit 22L, Mean Corpuscular Volume 94, Mean Corpuscular Hemoglobin 31, Mean Corpuscular Hemoglobin Concent 33, Red Cell Distribution Width 19.3H, Platelet Count 132, Mean Platelet Volume 11.7, Immature Granulocyte % (Auto) 0, Neutrophils (%) (Auto) 69, Lymphocytes (%) (Auto) 16, Monocytes (%) (Auto) 14H, Eosinophils (%) (Auto) 1, Basophils (%) (Auto) 0, Neutrophils # (Auto) 7.0, Lymphocytes # (Auto) 1.6, Monocytes # (Auto) 1.4H, Eosinophils # (Auto) 0.1, Basophils # (Auto) 0.0, Immature Granulocyte # (Auto) 0.0, Sodium Level 139, Potassium Level 4.2, Chloride Level 112H, Carbon Dioxide Level 19L, Anion Gap 8, Blood Urea Nitrogen 9, Creatinine 0.69, Estimat Glomerular Filtration Rate > 60, BUN/Creatinine Ratio 13, Glucose Level 85, Calcium Level 7.6L, Phosphorus Level 3.0, Magnesium Level 1.7 06/07/20 06:29: Ammonia 49H Microbiology 05/30/20 Gram Stain - Final, Complete 05/30/20 Sputum Culture - Final, Complete Usual upper respiratory josé miguel 05/29/20 Blood Culture - Final, Complete Enterococcus faecalis Assessment/Plan Assessment/Plan Assess & Plan/Chief Complaint sepsis, resp failure, anemia secondary severe gastritis, liver cirrhosis cont PPI. s/p paracentesis. will remove when less sx and significant abd decompression. Clinical Quality Measures DVT/VTE Risk/Contraindication: Risk Factor Score Per Nursin RFS Level Per Nursing on Admit: 4+=Very High Contraindications-Pharm: Other *list below* Other: PT IS GI BLEED- NO VTE MEDICATION ORDERED AT THIS TIME. WILL USE SCD'S. JOY LEONARD MD Jun 07, 2020 11:41
[2020-06-07] MEDS ORDERED: FUROSEMIDE 40 MG/4 ML INJ (LASIX) IVP NR (15:30)
--- NOTE | 2020-06-07 15:44 | Progress Note - Hospitalist ---
Subjective HPI/CC On Admission Date Seen by Provider: Jun 07, 2020 Time Seen by Provider: 15:39 Dustin Solares is a 59 year old male with PMH alcohol dependence who presented with hematemesis. He is a poor historian. He reports that he has been having bloody emesis and melena for an undetermined amount of time. He reports drinking every day. He denies fevers and chills. He denies trouble breathing and cough. He reports abdominal swelling. Subjective/Events-last exam Pt resting in bed. No complaints. RN states still having high output from paracentesis. Focused Exam Lactate Level 06/06/20 22:10: Lactic Acid Level 0.94 Time of Focused Exam: 14:30 Objective Exam Vital Signs Vital Signs Date Time Temp Pulse Resp B/P (MAP) Pulse Ox O2 Delivery O2 Flow Rate FiO2 06/07/20 13:54 36.6 105 16 123/63 95 Nasal Cannula 2.00 06/05/20 08:00 21 Capillary Refill : Less Than 3 Seconds General Appearance: No Apparent Distress, Chronically ill, Obese Respiratory: Crackles; No Decreased Breath Sounds Cardiovascular: Regular Rate, Rhythm, No Murmur Gastrointestinal: Normal Bowel Sounds, Non Tender, Soft Neurologic/Psychiatric: Alert, Oriented x3 Results/Procedures Lab Laboratory Tests 06/06/20 17:03 06/06/20 22:10 06/07/20 02:29 Patient resulted labs reviewed. Imaging: Reviewed Imaging Report Assessment/Plan Assessment and Plan Assess & Plan/Chief Complaint Acute blood loss anemia Hematemesis Upper GI bleeding due to variceal bleed History of peptic ulcer Likely decompensated alcoholic cirrhosis Hepatic encephalopathy Lactic acidosis Acute kidney injury Endotracheally intubated Hgb down to 7.2, 1 unit ordered s/p 2 units PRBCs Continue IV PPI BID and Octreotide Now off Levophed Surgery consulted, appreciate assistance, s/p EGD on 05/31 Rocephin Paracentesis on 06/04 and continues to have high volume output Albumin ordered Await pleural fluid culture Pulm consulted for vent management, appreciate recs DVT prophylaxis: held due to GI bleed Critical Care Critically Ill Patient Clinical Quality Measures DVT/VTE Risk/Contraindication: Risk Factor Score Per Nursin RFS Level Per Nursing on Admit: 4+=Very High Contraindications-Pharm: Other *list below* Other: PT IS GI BLEED- NO VTE MEDICATION ORDERED AT THIS TIME. WILL USE SCD'S. JAMES SEARS MD Jun 07, 2020 15:43
--- NOTE | 2020-06-07 16:06 | Physical Therapy Evaluation ---
PT Evaluation-General Medical Diagnosis Admission Date May 29, 2020 at 17:06 Medical Diagnosis: GI bleed, acute encephalopathy Onset Date: May 29, 2020 Therapy Diagnosis Therapy Diagnosis: impaired mobility, strength, endurance Precautions Precautions/Isolations: Aspiration, Seizure, Fall Prevention, Standard Precautions, Pressure Ulcer Referral Physician: Brodie Reason for Referral: Evaluation/Treatment Medical History Pertinent Medical History: Alcoholism, Smoking Social History unknown Prior Prior Level of Function SCALE: Activities may be completed with or without assistive devices. 8-[id number]-fxitplj completes the activity by him/herself with no assistance from a helper. 5-Set-up or Clean-up Assistance-helper sets up or cleans up; patient completes activity. [place] assists only prior to or following the activity. 4-Supervision or Touching Assistance-helper provides verbal cues and/or touching/steadying and/or contact guard assistance as patient completes activity. Assistance may be provided throughout the activity or intermittently. 3-Partial/Moderate Assistance-helper does LESS THAN HALF the effort. [place] lifts, holds or supports trunk or limbs, but provides less than half the effort. 2-Substantial/Maximal Assistance-helper does MORE THAN HALF the effort. [place] lifts or holds trunk or limbs and provides more than half the effort. 2-Uvhvxrvnc-fpotry does ALL the effort. Patient does none of the effort to complete the activity. Or, the assistance of 2 or more helpers is required for the patient to complete the activity. If activity was not attempted, code reason: 7-Patient Refused. 9-Not Applicable-not attempted and the patient did not perform the activity before the current illness, exacerbation or injury. 10-Not Attempted due to Environmental Limitations-(lack of equipment, weather restraints, etc.). 88-Not Attempted due to Medical Conditions or Safety Concerns. unknown PT Evaluation-Current Subjective Patient in bed pre tx, he opens his eyes when his name is said and mumbles but he cannot be understood. Patient has also had a BM and needs to be cleaned. Pt/Family Goals none stated Objective Patient Orientation: Person, Unable to Assess, Non-Verbal/Aphasic Attachments: SCD's, Oxygen, Drains, Hunter Catheter, IV ROM/Strength ROM Lower Extremities WNL Transfers Roll Left to Right (QC): 1 Roll patient from side to side for cleaning BM and changing brief and pad under patient. Patient is totally dependent for this. Assessment/Needs Patient is totally dependent for any mobility. He seems confused, doesn't follow directions. Rehab Potential: Poor PT Residential Goals Exceptional Needs Teacher Goals PT Exceptional Needs Teacher Goals Time Frame: Jun 14, 2020 Roll Left & Right (QC): 3 Sit to Lying (QC): 3 Lying-Sitting on Side/Bed(QC): 3 Sit to Stand (QC): 2 PT Plan Problem List Problem List: Activity Tolerance, Functional Strength, Safety, Balance, Gait, Transfer, Bed Mobility, ROM Treatment/Plan Treatment Plan: Continue Plan of Care Treatment Plan: Bed Mobility, Education, Functional Activity Lisandra, Functional Strength, Gait, Safety, Therapeutic Exercise, Transfers Treatment Duration: Jun 14, 2020 Frequency: 6 times per week Estimated Hrs Per Day: .25 hour per day Patient and/or Family Agrees t: Yes Safety Risks/Education Patient Education: Correct Positioning, Safety Issues Teaching Recipient: Patient Teaching Methods: Demonstration, Discussion Response to Teaching: Reinforcement Needed Discharge Recommendations Plan Patient will perform bed mobility and transfer training, balance and endurance training, functional strengthening, gait training, and education, to improve functional mobility and independence at home. Therapy Discharge Recommendati: 24 Hour Supervision Time/GCodes Time In: 1535 Time Out: 1551 Total Billed Treatment Time: 16 Total Billed Treatment 1 visit MILLICENT ENCINAS PT Jun 07, 2020 16:06
[2020-06-07 23:06] LABS: HEMOGLOBIN 8.4 g/dL (13.3-17.7)
--- NOTE | 2020-06-07 23:52 | NUR ---
THIS RN NOTIFIED DR. SEARS OF PATIENT'S TEMPERATURE OF 38.4, PATIENT HR IN 100-115'S, PATIENT HAS INCREASED WORK OF BREATHING WITH COARSE, CRACKLY, AND GURGLING BREATH SOUNDS. NEW ORDERS RECEIVED AT THIS TIME, SEE ORDER HX AND EMAR.
[2020-06-08] MEDS ORDERED: KETOROLAC 15 MG/ML VIAL IVP ONE (00:15)
--- NOTE | 2020-06-08 00:30 | NUR ---
THIS RN GAVE REPORT TO JOSIE CUNNINGHAM, WHO IS ASSUMING CARE OF PATIENT AT THIS TIME.
[2020-06-08] MEDS: NOREPINEPHRINE 4 MG/250 ML 250 ML IV SCH (00:44)
[2020-06-08] MEDS: LORazepam INJ 2 MG/ML (ATIVAN) VIAL IVP PRN (00:56)
[2020-06-08 03:12] VITALS: BP 135/95
[2020-06-08 03:14] VITALS: BP 144/77
[2020-06-08] MEDS ORDERED: RT-ALBUTEROL SULF 2.5 MG/3 ML PRE-MIX VIAL INH PRN (03:30)
[2020-06-08 03:45] LABS: BASOPHILS # (AUTO) 0.1 10^3/uL (0.0-0.1); BASOPHILS % (AUTO) 1 % (0-10); EOSINOPHILS # (AUTO) 0.3 10^3/uL (0.0-0.3); EOSINOPHILS % (AUTO) 2 % (0-10); HEMATOCRIT 26 % (40-54); HEMOGLOBIN 8.3 g/dL (13.3-17.7); LYMPHOCYTES # (AUTO) 2.5 10^3/uL (1.0-4.0); LYMPHOCYTES % (AUTO) 19 % (12-44); MEAN CORPUSCULAR HEMOGLOBIN 30 pg (25-34); MEAN CORPUSCULAR HGB CONC 33 g/dL (32-36); MEAN CORPUSCULAR VOLUME 93 fL (80-99); MONOCYTES # (AUTO) 1.7 10^3/uL (0.0-1.0); MONOCYTES % (AUTO) 13 % (0-12); NEUTROPHILS # (AUTO) 8.5 10^3/uL (1.8-7.8); NEUTROPHILS % (AUTO) 65 % (42-75); PLATELET COUNT 145 10^3/uL (130-400); WHITE BLOOD COUNT 13.1 10^3/uL (4.3-11.0)
[2020-06-08 03:53] LABS: CHLORIDE 111 MMOL/L (98-107); POTASSIUM 3.8 MMOL/L (3.6-5.0); SODIUM 141 MMOL/L (135-145)
[2020-06-08 03:54] LABS: CALCIUM 7.7 MG/DL (8.5-10.1)
[2020-06-08 03:55] LABS: GLUCOSE 97 MG/DL (70-105)
[2020-06-08 03:57] LABS: CARBON DIOXIDE 22 MMOL/L (21-32)
[2020-06-08 03:59] LABS: CREATININE SERUM 0.65 MG/DL (0.60-1.30); GFR ESTIMATED > 60; PHOSPHORUS 2.8 MG/DL (2.3-4.7)
[2020-06-08 04:00] LABS: BUN/CREATININE RATIO 12
[2020-06-08 04:01] LABS: MAGNESIUM 1.6 MG/DL (1.6-2.4)
[2020-06-08] MEDS ORDERED: PIPERACILLIN/TAZOBACTAM (BULK) 4.5 GM in NS (IVPB) 100 ML IV ONE (05:00)
[2020-06-08] MEDS ORDERED: PIPERACILLIN/TAZOBACTAM (BULK) 4.5 GM in NS (IVPB) 100 ML IV SCH (05:00)
--- NOTE | 2020-06-08 05:01 | Pulmonary Progress Note ---
Subjective Time Seen by a Provider: 04:56 Subjective/Events-last exam Pt is still very confused. Sepsis Event Evaluation Height, Weight, BMI Height: '" Weight: lbs. oz. kg; 21.00 BMI Method: Focused Exam Lactate Level 06/06/20 22:10: Lactic Acid Level 0.94 Time of Focused Exam: 14:30 Exam Exam Vital Signs Date Time Temp Pulse Resp B/P (MAP) Pulse Ox O2 Delivery O2 Flow Rate FiO2 06/08/20 03:14 36.3 108 18 144/77 (99) 96 Nasal Cannula 2.00 06/08/20 03:12 38.3 116 96 28 06/08/20 01:00 111 06/08/20 00:15 38.3 06/07/20 23:40 116 12 135/95 (108) 96 Nasal Cannula 2.00 06/07/20 23:38 38.4 06/07/20 21:27 116 06/07/20 20:00 95 Nasal Cannula 2.00 06/07/20 20:00 36.8 113 25 151/74 (99) 95 2.00 06/07/20 16:20 36.5 107 27 126/89 (101) 94 Nasal Cannula 2.00 06/07/20 16:03 37.2 106 16 126/89 95 Nasal Cannula 1.00 06/07/20 13:54 36.6 105 16 123/63 95 Nasal Cannula 2.00 06/07/20 13:41 36.6 107 18 113/78 95 Nasal Cannula 2.00 06/07/20 13:06 38.1 101 19 108/74 (85) 95 Nasal Cannula 2.00 06/07/20 08:11 37.5 06/07/20 08:00 95 Nasal Cannula 2.00 06/07/20 07:00 109 06/07/20 06:00 113 28 111/70 (84) 96 Nasal Cannula 2.00 06/07/20 05:00 106 26 111/62 (78) 96 Nasal Cannula 2.00 I & O 06/08/20 07:00 Intake Total 0 ml Output Total 4190 ml Balance -4190 ml Height & Weight Height: '" Weight: lbs. oz. kg; 21.00 BMI Method: General Appearance: No Apparent Distress, Chronically ill, Obese HEENT: PERRL/EOMI Neck: Full Range of Motion Respiratory: Crackles; No Decreased Breath Sounds Cardiovascular: Regular Rate, Rhythm, No Murmur Capillary Refill: Less Than 3 Seconds Peripheral Pulses: 2+ Radial Pulses (R), 2+ Radial Pulses (L) Gastrointestinal: normal bowel sounds, non tender, soft Extremity: Normal Capillary Refill Neurologic/Psychiatric: Alert, Oriented x3 Skin: Normal Color Lymphatic: No Adenopathy Results Lab Laboratory Tests 06/06/20 17:03 06/06/20 22:10 06/07/20 02:29 06/07/20 23:00 06/08/20 03:25 Assessment/Plan Assessment/Plan Encephalopathy -Precedex off -Pt is very lethargic. No currently able to take PO meds. -RN is concerned of aspiration with po meds. Will place NG if ok with surgery. worsening leukocytosis with fever -Check BC -Check culture on peritoneal fluid -Start Zosyn Acute GIB s/p 4 units PRBC - Controlled -Hgb stable -Protonix BID -s/p EGD ES liver failure -Pt has abdominal drain. -2 liters over the last 12hours Hypomag -Replace Alcohol dependance -D/C CIWA protocol -Pt has been getting ativan Hepatic encpephalopathy with lethargy and agitation -Extubated on 06/05 -SpO2 95% on 2L NC -on rifaxamine Acute renal failure -Monitor OPAL CHAVES DO Jun 08, 2020 05:01
[2020-06-08] MEDS: POTASSIUM CL 10MEQ/50ML IVPB 50 ML IV SCH (05:10)
[2020-06-08] MEDS: MAGNESIUM 1 GM/100 ML IVPB 100 ML IV SCH ×2 (05:10→06:08)
[2020-06-08] MEDS: KCL 20 MEQ TAB (K-DUR) PO SCH (05:10)
[2020-06-08] MEDS ORDERED: PIPERACILLIN/TAZO 4.5 GM VIAL (ZOSYN) IV ONE (05:10)
[2020-06-08] MEDS ORDERED: NS (IVPB) 100 ML ONE (05:10)
[2020-06-08] MEDS ORDERED: RT-ALBUTEROL SULF 2.5 MG/3 ML PRE-MIX VIAL INH SCH (06:00)
[2020-06-08 07:44] VITALS: BP 122/71
--- NOTE | 2020-06-08 08:41 | Progress Note - Hospitalist ---
Subjective HPI/CC On Admission Date Seen by Provider: Jun 08, 2020 Time Seen by Provider: 08:36 Dustin Solares is a 59 year old male with H alcohol dependence who presented with hematemesis. He is a poor historian. He reports that he has been having bloody emesis and melena for an undetermined amount of time. He reports drinking every day. He denies fevers and chills. He denies trouble breathing and cough. He reports abdominal swelling. Subjective/Events-last exam Pt remains confused. Did spike a fever overnight. Green cultures drawn and Zosyn started. Focused Exam Lactate Level 06/06/20 22:10: Lactic Acid Level 0.94 Time of Focused Exam: 14:30 Objective Exam Vital Signs Vital Signs Date Time Temp Pulse Resp B/P (MAP) Pulse Ox O2 Delivery O2 Flow Rate FiO2 06/09/20 08:39 37.8 96 18 131/76 (94) 97 Nasal Cannula 2.50 06/08/20 03:12 28 Capillary Refill : Less Than 3 Seconds General Appearance: Chronically ill, Other (laying in bed, makes eye contact and mumbles) Respiratory: Decreased Breath Sounds; No Rhonci, No Wheezing; Other (continued drainage in catheter from abdomen) Cardiovascular: Regular Rate, Rhythm, No Murmur Gastrointestinal: Normal Bowel Sounds, Non Tender, Soft, Other Neurologic/Psychiatric: Alert, Disoriented Results/Procedures Lab Laboratory Tests 06/09/20 02:36 Patient resulted labs reviewed. Imaging: Reviewed Imaging Report Assessment/Plan Assessment and Plan Assess & Plan/Chief Complaint Acute blood loss anemia Hematemesis Upper GI bleeding due to variceal bleed History of peptic ulcer Likely decompensated alcoholic cirrhosis Hepatic encephalopathy Lactic acidosis Acute kidney injury Endotracheally intubated Hgb up to 8.3 this morning, simone appropriately with 1 unit pRBCs 06/07 s/p 3 units PRBCs total Continue IV PPI BID and Octreotide Surgery consulted, appreciate assistance, s/p EGD on 05/31 Andre added this AM Paracentesis on 06/04 and continues to have high volume output Await pleural fluid culture, Blood culture from 06/06 NGTD Rapid COVID negative but PCR sent for confirmation due to fever Unable to take oral meds due to encephalopathy Consider NGT for meds but defer to surgery given known varices DVT prophylaxis: held due to GI bleed Critical Care Critically Ill Patient Clinical Quality Measures DVT/VTE Risk/Contraindication: Risk Factor Score Per Nursin RFS Level Per Nursing on Admit: 4+=Very High Contraindications-Pharm: Other *list below* Other: PT IS GI BLEED- NO VTE MEDICATION ORDERED AT THIS TIME. WILL USE [facility]. JAMES SEARS MD Jun 08, 2020 08:41
[2020-06-08] MEDS: RT-ALBUTEROL INHALER HFA (VENTOLIN HFA) 18 GM IH SCH ×4 (10:19→21:59)
[2020-06-08 12:15] VITALS: BP 140/89
--- NOTE | 2020-06-08 12:20 | Physical Therapy Daily Note ---
PT Daily Note-Current Subjective Pt mumbling, eye closed. Pt opens eyes when spoken to but little to no response when asked questions. (L) compression pump off and (L) LE off (L) side of bed. Pt positioned diagonally across the bed upon arrival. Transfers SCALE: Activities may be completed with or without assistive devices. 4-Mxyjlosdsh-lbyrbox completes the activity by him/herself with no assistance from a helper. 5-Set-up or Clean-up Assistance-helper sets up or cleans up; patient completes activity. [place] assists only prior to or following the activity. 4-Supervision or Touching Assistance-helper provides verbal cues and/or touching/steadying and/or contact guard assistance as patient completes activity. Assistance may be provided throughout the activity or intermittently. 3-Partial/Moderate Assistance-helper does LESS THAN HALF the effort. [place] lifts, holds or supports trunk or limbs, but provides less than half the effort. 2-Substantial/Maximal Assistance-helper does MORE THAN HALF the effort. [place] lifts or holds trunk or limbs and provides more than half the effort. 5-Clklddemf-ozhqrn does ALL the effort. Patient does none of the effort to complete the activity. Or, the assistance of 2 or more helpers is required for the patient to complete the activity. If activity was not attempted, code reason: 7-Patient Refused. 9-Not Applicable-not attempted and the patient did not perform the activity before the current illness, exacerbation or injury. 10-Not Attempted due to Environmental Limitations-(lack of equipment, weather restraints, etc.). 88-Not Attempted due to Medical Conditions or Safety Concerns. Treatments Pt seen for AAROM (B) LE all planes all joints x 20 each. Mostly PROM. When done pt began pumping ankles (I). Pt compression pumps were in place and pt repositioned in middle of bed with (B) LE floating on pillows. Call light in reach and pt reminded of how to alert his nurse. All 4 rails up. Assessment Current Status: Poor Progress Pt incoherent, did not respond to cues for participation. Pt performing some active ankle pumping once treatment was over. Pt resting with call light in reach. PT Traveling Engineer Goals Traveling Engineer Goals PT Traveling Engineer Goals Time Frame: Jun 14, 2020 Roll Left & Right (QC): 3 Sit to Lying (QC): 3 Lying-Sitting on Side/Bed(QC): 3 Sit to Stand (QC): 2 PT Plan Treatment/Plan Treatment Plan: Continue Plan of Care Treatment Plan: Bed Mobility, Education, Functional Activity Lisandra, Functional Strength, Gait, Safety, Therapeutic Exercise, Transfers Treatment Duration: Jun 14, 2020 Frequency: 6 times per week Estimated Hrs Per Day: .25 hour per day Patient and/or Family Agrees t: Yes Time/GCodes Time In: 1145 Time Out: 1205 Total Billed Treatment Time: 20 Total Billed Treatment 1, ther ex x 20' CLINTON AVALOS CPTA Jun 08, 2020 12:19
[2020-06-08] MEDS ORDERED: MIDAZOLAM 2 MG/2 ML (VERSED) VIAL ONE (12:24)
[2020-06-08] MEDS: LACTULOSE SYRUP 10GM/15ML (ENULOSE) 30ML UDC PO SCH ×4 (12:55→21:35)
[2020-06-08] MEDS: PANTOPRAZOLE 40 MG (PROTONIX) VIAL IV SCH ×2 (12:55→21:35)
[2020-06-08] MEDS: RIFAXIMIN 550 MG TABLET (XIFAXAN) PO SCH ×2 (12:56→21:30)
[2020-06-08] MEDS: PIPERACILLIN/TAZOBACTAM (BULK) 4.5 GM in NS (IVPB) 100 ML IV SCH ×2 (12:57→21:37)
[2020-06-08 15:21] VITALS: BP 117/73
[2020-06-08 20:00] VITALS: BP 132/80
[2020-06-09 00:56] VITALS: BP 147/82
[2020-06-09] MEDS: RT-ALBUTEROL INHALER HFA (VENTOLIN HFA) 18 GM IH SCH ×6 (02:36→21:42)
[2020-06-09 02:50] LABS: BASOPHILS # (AUTO) 0.1 10^3/uL (0.0-0.1); BASOPHILS % (AUTO) 1 % (0-10); CHLORIDE 109 MMOL/L (98-107); EOSINOPHILS # (AUTO) 0.6 10^3/uL (0.0-0.3); EOSINOPHILS % (AUTO) 4 % (0-10); HEMATOCRIT 26 % (40-54); HEMOGLOBIN 8.5 g/dL (13.3-17.7); LYMPHOCYTES # (AUTO) 2.2 10^3/uL (1.0-4.0); LYMPHOCYTES % (AUTO) 16 % (12-44); MEAN CORPUSCULAR HEMOGLOBIN 30 pg (25-34); MEAN CORPUSCULAR HGB CONC 33 g/dL (32-36); MEAN CORPUSCULAR VOLUME 93 fL (80-99); MEAN PLATELET VOLUME 10.9 fL (9.0-12.2); MONOCYTES # (AUTO) 1.6 10^3/uL (0.0-1.0); MONOCYTES % (AUTO) 12 % (0-12); NEUTROPHILS % (AUTO) 67 % (42-75); PLATELET COUNT 158 10^3/uL (130-400); POTASSIUM 3.8 MMOL/L (3.6-5.0); SODIUM 141 MMOL/L (135-145); WHITE BLOOD COUNT 13.5 10^3/uL (4.3-11.0)
[2020-06-09 02:51] LABS: CALCIUM 7.8 MG/DL (8.5-10.1)
[2020-06-09 02:52] LABS: GLUCOSE 92 MG/DL (70-105)
[2020-06-09 02:53] LABS: CARBON DIOXIDE 23 MMOL/L (21-32)
[2020-06-09 02:55] LABS: PHOSPHORUS 2.7 MG/DL (2.3-4.7)
[2020-06-09 02:56] LABS: CREATININE SERUM 0.59 MG/DL (0.60-1.30); GFR ESTIMATED > 60
[2020-06-09 02:57] LABS: BUN/CREATININE RATIO 14
[2020-06-09 02:58] LABS: MAGNESIUM 1.6 MG/DL (1.6-2.4)
[2020-06-09 04:33] VITALS: BP 124/78
[2020-06-09] MEDS: PIPERACILLIN/TAZOBACTAM (BULK) 4.5 GM in NS (IVPB) 100 ML IV SCH ×3 (04:33→17:55)
[2020-06-09] MEDS: MAGNESIUM 1 GM/100 ML IVPB 100 ML IV SCH (05:34)
[2020-06-09] MEDS: POTASSIUM CL 10MEQ/50ML IVPB 50 ML IV SCH (05:34)
[2020-06-09] MEDS: KCL 20 MEQ TAB (K-DUR) PO SCH (05:35)
--- NOTE | 2020-06-09 07:00 | Pulmonary Progress Note ---
Subjective Time Seen by a Provider: 06:57 Subjective/Events-last exam Pt is more awake but confused. Sepsis Event Evaluation Height, Weight, BMI Height: '" Weight: lbs. oz. kg; 21.00 BMI Method: Focused Exam Lactate Level 06/06/20 22:10: Lactic Acid Level 0.94 Time of Focused Exam: 14:30 Exam Exam Vital Signs Date Time Temp Pulse Resp B/P (MAP) Pulse Ox O2 Delivery O2 Flow Rate FiO2 06/09/20 04:33 36.4 92 20 124/78 (93) 96 Nasal Cannula 2.50 06/09/20 02:36 96 Nasal Cannula 2.00 06/09/20 01:00 96 06/09/20 01:00 98 06/09/20 00:56 35.4 96 18 147/82 (103) 96 Nasal Cannula 2.50 06/08/20 21:59 96 Nasal Cannula 2.00 06/08/20 20:00 36.8 111 20 132/80 (97) 96 Nasal Cannula 2.00 2.00 06/08/20 20:00 95 Nasal Cannula 2.00 06/08/20 19:00 96 06/08/20 18:48 97 Nasal Cannula 2.00 06/08/20 15:21 36.8 99 18 117/73 (88) 97 Nasal Cannula 2.00 06/08/20 12:47 94 06/08/20 12:15 36.9 93 17 140/89 (106) 96 Nasal Cannula 2.00 06/08/20 08:00 95 Nasal Cannula 2.00 06/08/20 07:44 36.8 102 20 122/71 (88) 97 Nasal Cannula 2.00 06/08/20 07:00 105 I & O 06/09/20 07:00 Intake Total 0 ml Output Total 2975 ml Balance -2975 ml Height & Weight Height: '" Weight: lbs. oz. kg; 21.00 BMI Method: General Appearance: Chronically ill, Other (laying in bed, makes eye contact and mumbles) HEENT: PERRL/EOMI Neck: Full Range of Motion Respiratory: Decreased Breath Sounds; No Rhonci, No Wheezing; Other (continued drainage in catheter from abdomen) Cardiovascular: Regular Rate, Rhythm, No Murmur Capillary Refill: Less Than 3 Seconds Peripheral Pulses: 2+ Radial Pulses (R), 2+ Radial Pulses (L) Gastrointestinal: normal bowel sounds, non tender, soft Extremity: Normal Capillary Refill Neurologic/Psychiatric: Alert, Disoriented Skin: Normal Color Lymphatic: No Adenopathy Results Lab Laboratory Tests 06/07/20 23:00 06/08/20 03:25 06/09/20 02:36 Assessment/Plan Assessment/Plan Encepphalopathy -Precedex off -PT has OG tube now for PO meds -Start TF as tolerated worsening leukocytosis with fever -Check culture on peritoneal fluid -Start Zosyn Acute GIB s/p 4 units PRBC - Controlled -Hgb stable -Protonix BID -s/p EGD ES liver failure -Pt has abdominal drain. -2 liters over the last 12hours Hypomag -Replace Alcohol dependance -D/C CIWA protocol -Pt has been getting ativan Hepatic encpephalopathy with lethargy and agitation -Extubated on 06/05 -SpO2 95% on 2L NC -on rifaxamine Acute renal failure -Monitor Problem List OPAL CHAVES DO Jun 09, 2020 07:00
[2020-06-09 08:39] VITALS: BP 131/76
--- NOTE | 2020-06-09 10:02 | Progress Note - Hospitalist ---
Subjective HPI/CC On Admission Date Seen by Provider: Jun 09, 2020 Time Seen by Provider: 09:56 Dustin Solares is a 59 year old male with PMH alcohol dependence who presented with hematemesis. He is a poor historian. He reports that he has been having bloody emesis and melena for an undetermined amount of time. He reports drinking every day. He denies fevers and chills. He denies trouble breathing and cough. He reports abdominal swelling. Subjective/Events-last exam Pt more alert. Mumbles some. Shakes head no when asked if he needs anything. Focused Exam Lactate Level 06/06/20 22:10: Lactic Acid Level 0.94 Time of Focused Exam: 14:30 Objective Exam Vital Signs Vital Signs Date Time Temp Pulse Resp B/P (MAP) Pulse Ox O2 Delivery O2 Flow Rate FiO2 06/09/20 08:39 37.8 96 18 131/76 (94) 97 Nasal Cannula 2.50 06/08/20 03:12 28 Capillary Refill : Less Than 3 Seconds General Appearance: No Apparent Distress, WD/WN Respiratory: Lungs Clear, No Accessory Muscle Use, Other Cardiovascular: Regular Rate, Rhythm, No Murmur Gastrointestinal: Normal Bowel Sounds, Soft Neurologic/Psychiatric: Alert, Other (mumbles, answered a few questions appropriately with shaking head) Results/Procedures Lab Laboratory Tests 06/09/20 02:36 Patient resulted labs reviewed. Imaging: Reviewed Imaging Report Assessment/Plan Assessment and Plan Assess & Plan/Chief Complaint Acute blood loss anemia Hematemesis Upper GI bleeding due to variceal bleed History of peptic ulcer Likely decompensated alcoholic cirrhosis Hepatic encephalopathy Lactic acidosis Acute kidney injury Endotracheally intubated Hgb up to 8.5 s/p 3 units PRBCs total Continue IV PPI BID and Octreotide Surgery consulted, appreciate assistance, s/p EGD on 05/31 Continue Zosyn Paracentesis on 06/04 and continues to have high volume output Await pleural fluid culture, Blood culture from 06/06 NGTD Rapid and PCR COVID negative Dobhoff in place for meds DVT prophylaxis: held due to GI bleed Critical Care Critically Ill Patient Clinical Quality Measures DVT/VTE Risk/Contraindication: Risk Factor Score Per Nursin RFS Level Per Nursing on Admit: 4+=Very High Contraindications-Pharm: Other *list below* Other: PT IS GI BLEED- NO VTE MEDICATION ORDERED AT THIS TIME. WILL USE [facility]. JAMES SEARS MD Jun 09, 2020 10:02
[2020-06-09] MEDS: RIFAXIMIN 550 MG TABLET (XIFAXAN) PO SCH ×2 (11:11→21:00)
[2020-06-09] MEDS: PANTOPRAZOLE 40 MG (PROTONIX) VIAL IV SCH ×2 (11:11→21:00)
[2020-06-09] MEDS: LACTULOSE SYRUP 10GM/15ML (ENULOSE) 30ML UDC PO SCH ×4 (11:11→21:00)
[2020-06-09 12:54] VITALS: BP 139/82
[2020-06-09 15:45] VITALS: BP 138/81
[2020-06-09 19:37] VITALS: BP 134/74
[2020-06-10] VITALS (8 sets, daily range): BP systolic 118–141; BP diastolic 60–82
[2020-06-10] MEDS: LORazepam INJ 2 MG/ML (ATIVAN) VIAL IVP PRN (00:55)
[2020-06-10] MEDS: HALOPERIDOL 5 MG/ML (HALDOL) VIAL IM PRN (01:56)
[2020-06-10] MEDS: PIPERACILLIN/TAZOBACTAM (BULK) 4.5 GM in NS (IVPB) 100 ML IV SCH ×3 (01:57→18:06)
[2020-06-10] MEDS: RT-ALBUTEROL INHALER HFA (VENTOLIN HFA) 18 GM IH SCH ×5 (02:42→18:25)
[2020-06-10 04:31] LABS: BASOPHILS # (AUTO) 0.1 10^3/uL (0.0-0.1); BASOPHILS % (AUTO) 1 % (0-10); EOSINOPHILS # (AUTO) 0.6 10^3/uL (0.0-0.3); EOSINOPHILS % (AUTO) 5 % (0-10); HEMATOCRIT 26 % (40-54); HEMOGLOBIN 8.4 g/dL (13.3-17.7); LYMPHOCYTES # (AUTO) 2.6 10^3/uL (1.0-4.0); LYMPHOCYTES % (AUTO) 21 % (12-44); MEAN CORPUSCULAR HEMOGLOBIN 31 pg (25-34); MEAN CORPUSCULAR HGB CONC 32 g/dL (32-36); MEAN CORPUSCULAR VOLUME 95 fL (80-99); MEAN PLATELET VOLUME 10.8 fL (9.0-12.2); MONOCYTES # (AUTO) 1.6 10^3/uL (0.0-1.0); MONOCYTES % (AUTO) 13 % (0-12); NEUTROPHILS # (AUTO) 7.3 10^3/uL (1.8-7.8); NEUTROPHILS % (AUTO) 60 % (42-75); PLATELET COUNT 160 10^3/uL (130-400); WHITE BLOOD COUNT 12.2 10^3/uL (4.3-11.0)
[2020-06-10 04:37] LABS: ALBUMIN 2.8 GM/DL (3.2-4.5); CHLORIDE 108 MMOL/L (98-107); POTASSIUM 3.6 MMOL/L (3.6-5.0); SODIUM 141 MMOL/L (135-145)
[2020-06-10 04:38] LABS: CALCIUM 7.7 MG/DL (8.5-10.1)
[2020-06-10 04:39] LABS: GLUCOSE 92 MG/DL (70-105)
[2020-06-10 04:40] LABS: TOTAL PROTEIN 5.5 GM/DL (6.4-8.2)
[2020-06-10 04:41] LABS: BILIRUBIN,TOTAL 3.4 MG/DL (0.1-1.0); CARBON DIOXIDE 24 MMOL/L (21-32)
[2020-06-10 04:43] LABS: GFR ESTIMATED > 60; PHOSPHORUS 3.3 MG/DL (2.3-4.7)
[2020-06-10 04:44] LABS: BUN/CREATININE RATIO 13
[2020-06-10 04:46] LABS: ALANINE AMINOTRANSFERASE 23 U/L (0-55); MAGNESIUM 1.6 MG/DL (1.6-2.4)
--- NOTE | 2020-06-10 04:57 | Pulmonary Progress Note ---
Subjective Time Seen by a Provider: 04:52 Subjective/Events-last exam Pt is more alert. Sepsis Event Evaluation Height, Weight, BMI Height: '" Weight: lbs. oz. kg; 21.00 BMI Method: Focused Exam Time of Focused Exam: 14:30 Exam Exam Vital Signs Date Time Temp Pulse Resp B/P (MAP) Pulse Ox O2 Delivery O2 Flow Rate FiO2 06/10/20 04:10 37.2 Nasal Cannula 1.00 06/10/20 02:42 98 Nasal Cannula 1.00 06/10/20 01:00 102 06/10/20 00:07 37.4 Nasal Cannula 1.00 06/09/20 21:42 97 Nasal Cannula 1.00 06/09/20 20:00 97 Nasal Cannula 1.00 06/09/20 19:37 37.8 102 18 134/74 (94) 93 Nasal Cannula 2.50 06/09/20 19:00 107 06/09/20 17:58 97 Nasal Cannula 1.00 06/09/20 15:45 37.9 93 17 138/81 (100) 95 Nasal Cannula 2.50 06/09/20 15:12 95 Nasal Cannula 2.00 06/09/20 13:00 91 06/09/20 12:54 37.8 95 16 139/82 (101) 95 Nasal Cannula 2.50 06/09/20 08:39 37.8 96 18 131/76 (94) 97 Nasal Cannula 2.50 06/09/20 08:00 97 Nasal Cannula 2.00 06/09/20 07:00 96 I & O 06/10/20 07:00 Intake Total 270 ml Output Total 2475 ml Balance -2205 ml Height & Weight Height: '" Weight: lbs. oz. kg; 21.00 BMI Method: General Appearance: Chronically ill, Other (laying in bed, makes eye contact and mumbles) HEENT: PERRL/EOMI Neck: Full Range of Motion Respiratory: Decreased Breath Sounds; No Rhonci, No Wheezing; Other (continued drainage in catheter from abdomen) Cardiovascular: Regular Rate, Rhythm, No Murmur Capillary Refill: Less Than 3 Seconds Peripheral Pulses: 2+ Radial Pulses (R), 2+ Radial Pulses (L) Gastrointestinal: normal bowel sounds, non tender, soft Extremity: Normal Capillary Refill Neurologic/Psychiatric: Alert, Disoriented Skin: Normal Color Lymphatic: No Adenopathy Results Lab Laboratory Tests 06/09/20 02:36 06/10/20 04:02 Assessment/Plan Assessment/Plan Encepphalopathy -Precedex off -PT has OG tube now for PO meds -Start TF as tolerated Probable aspiration -NPO and swallow study worsening leukocytosis with fever -Check culture on peritoneal fluid -Start Zosyn Acute GIB s/p 4 units PRBC - Controlled -Hgb stable -Protonix BID -s/p EGD ES liver failure -Pt has abdominal drain. -2 liters over the last 12hours Hypomag -Replace Alcohol dependance -D/C CIWA protocol -Pt has been getting ativan Hepatic encpephalopathy with lethargy and agitation -Extubated on 06/05 -SpO2 95% on 2L NC -on rifaxamine Acute renal failure -Monitor OPAL CHAVES DO Jun 10, 2020 04:57
[2020-06-10] MEDS: MAGNESIUM 1 GM/100 ML IVPB 100 ML IV SCH ×3 (05:12→06:29)
[2020-06-10] MEDS: POTASSIUM CL 10MEQ/50ML IVPB 50 ML IV SCH ×5 (05:12→08:31)
[2020-06-10 05:52] LABS: AMMONIA 37 UMOL/L (11-32); BUN/CREATININE RATIO 13; CALCIUM 7.7 MG/DL (8.5-10.1); CARBON DIOXIDE 27 MMOL/L (21-32); CHLORIDE 108 MMOL/L (98-107); GFR ESTIMATED > 60; GLUCOSE 93 MG/DL (70-105); MAGNESIUM 1.6 MG/DL (1.6-2.4); PHOSPHORUS 3.4 MG/DL (2.3-4.7); POTASSIUM 3.7 MMOL/L (3.6-5.0); SODIUM 141 MMOL/L (135-145)
[2020-06-10 06:02] LABS: ALKALINE PHOSPHATASE 52 U/L (40-136)
[2020-06-10] MEDS: KCL 20 MEQ TAB (K-DUR) PO SCH (06:30)
[2020-06-10] MEDS: PANTOPRAZOLE 40 MG (PROTONIX) VIAL IV SCH (08:34)
[2020-06-10] MEDS: RIFAXIMIN 550 MG TABLET (XIFAXAN) PO SCH ×2 (09:38→20:56)
[2020-06-10] MEDS: LACTULOSE SYRUP 10GM/15ML (ENULOSE) 30ML UDC PO SCH ×4 (09:39→20:56)
--- NOTE | 2020-06-10 10:37 | NUR ---
SPEECH THERAPIST IN ROOM FOR BEDSIDE SWALLOW. OK FOR REGULAR DIET AND THIN LIQUIDS. WILL ORDER GROUND MEAT D/T POOR DENTITION. DR. ANDIE LUDWIG WITH ABOVE.
--- NOTE | 2020-06-10 11:25 | Physical Therapy Daily Note ---
PT Daily Note-Current Subjective Patient is in bed. Alert but slow to respond and mumbles. Mental Status Patient Orientation: Confused Attachments: Chest Tube, Oxygen, Hunter Catheter, IV Transfers SCALE: Activities may be completed with or without assistive devices. 9-Omumbtnjrl-rvmskcs completes the activity by him/herself with no assistance from a helper. 5-Set-up or Clean-up Assistance-helper sets up or cleans up; patient completes activity. [place] assists only prior to or following the activity. 4-Supervision or Touching Assistance-helper provides verbal cues and/or touching/steadying and/or contact guard assistance as patient completes activity. Assistance may be provided throughout the activity or intermittently. 3-Partial/Moderate Assistance-helper does LESS THAN HALF the effort. [place] lifts, holds or supports trunk or limbs, but provides less than half the effort. 2-Substantial/Maximal Assistance-helper does MORE THAN HALF the effort. [place] lifts or holds trunk or limbs and provides more than half the effort. 0-Rwzcmypbw-cdvbne does ALL the effort. Patient does none of the effort to complete the activity. Or, the assistance of 2 or more helpers is required for the patient to complete the activity. If activity was not attempted, code reason: 7-Patient Refused. 9-Not Applicable-not attempted and the patient did not perform the activity before the current illness, exacerbation or injury. 10-Not Attempted due to Environmental Limitations-(lack of equipment, weather restraints, etc.). 88-Not Attempted due to Medical Conditions or Safety Concerns. Sit to Lying (QC): 1 Lying to Sitting/Side of Bed(Q: 1 sat EOB with x 10 min with min assist to maintain upright position (dependent with all other mobility) Exercises Supine Ex: Heel Slides, Hip abd/add Supine Reps: 8 (PROM (patient does not follow direction)) Seated Therapy Exercises: Long arc quads Seated Reps: 12 (PROM) Assessment Patient fatigues with minimal activity. Dependent assist with bed mobility but was able to sit CGA to min assist EOB. Increase activity as tolerated by patient. PT Custodial Goals Custodial Goals PT Arterial Embalmer Goals Time Frame: Jun 14, 2020 Roll Left & Right (QC): 3 Sit to Lying (QC): 3 Lying-Sitting on Side/Bed(QC): 3 Sit to Stand (QC): 2 PT Plan Treatment/Plan Treatment Plan: Continue Plan of Care Treatment Plan: Bed Mobility, Education, Functional Activity Lisandra, Functional Strength, Gait, Safety, Therapeutic Exercise, Transfers Treatment Duration: Jun 14, 2020 Frequency: 6 times per week Estimated Hrs Per Day: .25 hour per day Patient and/or Family Agrees t: Yes Time/GCodes Time In: 1050 Time Out: 1106 Total Billed Treatment Time: 16 Total Billed Treatment 1 visit EX 16 min EMILY CAMARILLO PT Jun 10, 2020 11:25
--- NOTE | 2020-06-10 12:28 | Progress Note - Hospitalist ---
Subjective HPI/CC On Admission Date Seen by Provider: Jun 10, 2020 Time Seen by Provider: 08:50 Dustin Solares is a 59 year old male with H alcohol dependence who presented with hematemesis. He is a poor historian. He reports that he has been having bloody emesis and melena for an undetermined amount of time. He reports drinking every day. He denies fevers and chills. He denies trouble breathing and cough. He reports abdominal swelling. Subjective/Events-last exam He is a bit lethargic. He is slow to respond to questions. He is disoriented. He denies pain. He is able to follow commands. Focused Exam Time of Focused Exam: 14:30 Objective Exam Vital Signs Vital Signs Date Time Temp Pulse Resp B/P (MAP) Pulse Ox O2 Delivery O2 Flow Rate FiO2 06/10/20 11:55 36.2 91 21 141/80 (100) 96 Nasal Cannula 1.00 06/08/20 03:12 28 Capillary Refill : Less Than 3 Seconds General Appearance: No Apparent Distress, Chronically ill Respiratory: Lungs Clear, Normal Breath Sounds, No Respiratory Distress Cardiovascular: Regular Rate, Rhythm, No Edema, No Murmur Gastrointestinal: Normal Bowel Sounds, Non Tender, Soft Extremity: Normal Inspection, No Pedal Edema Neurologic/Psychiatric: Disoriented, Motor Weakness, Other (lethargic) Skin: Normal Color, Warm/Dry Results/Procedures Lab Laboratory Tests 06/10/20 04:02 06/10/20 05:20 Patient resulted labs reviewed. Imaging: Reviewed Imaging Report Assessment/Plan Assessment and Plan Assess & Plan/Chief Complaint Acute blood loss anemia Decompensated alcoholic cirrhosis Esophageal varices Hepatic encephalopathy Ascites Sepsis Critical illness myopathy Hgb 8.4, stable s/p 5 units PRBC Transition to oral PPI Continue Lactulose and Rifaximin Continue Zosyn, possible pneumonia, unclear source Blood cultures and peritoneal fluid cultures no growth Continue PT/OT DVT prophylaxis: held due to GI bleed Lactic acidosis, resolved Upper GI bleeding, resolved Acute kidney injury, resolved Endotracheally intubated, resolved Diagnosis/Problems Diagnosis/Problems (1) WILLIS (acute kidney injury) Status: Resolved Resolution Date/Time: 06/10/20 @ 12:33 (2) Lactic acidosis Status: Resolved Resolution Date/Time: 06/10/20 @ 12:33 (3) Hematemesis Status: Resolved Resolution Date/Time: 06/10/20 @ 12:33 (4) Alcohol dependence Status: Chronic (5) Current smoker Status: Chronic (6) GI bleed Status: Resolved Qualifiers: GI bleed type/associated pathology: gastrointestinal hemorrhage with hematemesis Qualified Codes: K92.0 - Hematemesis Resolution Date/Time: 06/10/20 @ 12:33 (7) Anemia Status: Acute (8) Esophageal varices with bleeding Status: Acute Qualifiers: Esophageal varices type: secondary Qualified Codes: I85.11 - Secondary esophageal varices with bleeding (9) Alcoholic cirrhosis Status: Acute Qualifiers: Ascites presence: with ascites Qualified Codes: K70.31 - Alcoholic cirrhosis of liver with ascites (10) Decompensated hepatic cirrhosis Status: Acute (11) Ascites Status: Acute Qualifiers: Ascites type: due to alcoholic cirrhosis Qualified Codes: K70.31 - Alcoholic cirrhosis of liver with ascites (12) Hepatic encephalopathy Status: Acute (13) Sepsis Status: Acute Clinical Quality Measures DVT/VTE Risk/Contraindication: Risk Factor Score Per Nursin RFS Level Per Nursing on Admit: 4+=Very High Contraindications-Pharm: Other *list below* Other: PT IS GI BLEED- NO VTE MEDICATION ORDERED AT THIS TIME. WILL USE SCD'S. IRAIS GIBSON MD Jun 10, 2020 12:28
--- NOTE | 2020-06-10 14:14 | ST Dysphagia Evaluation ---
Speech Evaluation-General Medical Diagnosis GI bleed, acute encephalopathy Onset Date: May 29, 2020 Therapy Diagnosis Therapy Diagnosis: Oropharyngeal Dysphagia Precautions Precautions: Aspiration Precautions/Isolations: Aspiration Referral Referring Physician: Dr. Calloway Medical History Pertinent Medical History: Alcoholism, Smoking Speech PLF/Current-Dysphagia Prior Level of Function Patient's prior level is unknown. Subjective Patient was cooperative with the Bedside Dysphagia Evaluation. Cognitive Status Patient Orientation: Person, Confused, Mumbles Oral Motor Skills Dentition: Natural, Tumbled, Stained Patient was NPO pending BDE. Oral Expression Ability: Moderate Impairment Voice Voice Phonatory-Based Quality: Breathy Voice Pitch: Normal Voice Loudness: Mildly Soft/Quiet Face Facial Symmetry: Symmetrical Oral-Facial Assessment Oral-Facial Dentition: Normal Labial Seal Description: Normal Smile: Normal Puff Cheeks: Reduced Strength Lingual Protrusion: Normal Lingual ROM: Normal Lingual Strength: Normal Pharynx Velopharyngeal Move.: Normal Volitional Dry Swallow: Yes Voluntary Cough: Yes Can Clear Throat Volitionally: Yes Dysphagia Evaluation Consistencies Presented: Regular, Thin Liquid, Mechanical Soft, Pureed Oral stage is grossly within normal range of function. Pharyngeal stage is within normal range of function. Dietary Recommendations: Ground Liquid Recommendations: Thin Swallowing Precautions: Alternate Liquids/Solids, Double Swallow, Decreased Bolus 1/2 Tsp, Decreased Rate of Oral Intake, Liquids from Straw, Small Bites and Sips, Sitting Upright 90 Degrees, Sitting 90 Degrees 30 Post Intake Dysphagia Evaluation Summary Patient is a 59 y/o man who was admitted to the hospital due to alcohol dependence and hematemesis. Patient was referred for a BDE by Dr. Calloway. Patient completed the evaluation with presentations of 1/2 tsp thin x3 and via straw x2 without difficulty. Patient was also given 1/2 tsp puree, mechanical soft and re gular. Patient was able to demonstrate bolus management with all consistencies. Patient is recommended for Dysphagia III diet level with thin liquids. This information was provided to his nurse as well as written on the white board in his room. Barriers to Learning Patient's status due to alcoholism Speech-Plan Patient/Family Goals Patient/Family Goals: Patient's discharge plans are unknown at this time. Treatment Plan Speech Therapy Treatment Plan: Discontinue ST Treatment Duration: Jun 10, 2020 Frequency: 1 time per week Estimated Hrs Per Day: .5 hour per day Rehab Potential: Poor Barriers to Learning: Patient's status due to alcoholism Pt/Family Agrees to Plan: Yes Safety Risks/Education Teaching Recipient: Patient Teaching Methods: Discussion Response to Teaching: Reinforcement Needed Education Topics Provided: Safety of oral intake, diet level Time Speech Therapy Time In: 09:00 Speech Therapy Time Out: 09:20 Total Billed Time: 20 Billed Treatment Time 1, LIS BALDWIN [address] ST Jun 10, 2020 14:14
--- NOTE | 2020-06-10 17:24 | NUR ---
PATIENT REQUESTING A NICOTINE PATCH. DR. GIBSON INFORMED. NEW ORDERS REC'D.
[2020-06-10] MEDS: NICOTINE 21 MG (NICODERM) PATCH TD SCH (17:30)
--- NOTE | 2020-06-10 18:38 | NUR ---
TRANSFERRED TO ROOM 421 VIA CART. REPORT TO MARISA HARDIN.
--- NOTE | 2020-06-10 18:40 | NUR ---
PATIENT ADMITTED TO ROOM 421. PATIENT IS ALERT TO SELF, NAME, AND TIME. PATIENT RAMBLES WITH SLURRED SPEECH AND IS HARD TO FOLLOW. FOLLOWS COMMANDS. DENIES NEEDS OR C/O. THIS RN AGREES WITH PREVIOUS SHIFT ASSESSMENT. PATIENT ORIENTED TO SURROUNDINGS, CALL LIGHT AND ROOM. B/C ALARM ON.
[2020-06-10] MEDS: PANTOPRAZOLE 40 MG (PROTONIX) TAB PO SCH (20:56)
[2020-06-11 00:38] VITALS: BP 130/66
[2020-06-11] MEDS: PIPERACILLIN/TAZOBACTAM (BULK) 4.5 GM in NS (IVPB) 100 ML IV SCH ×3 (03:06→19:51)
[2020-06-11 04:54] VITALS: BP 116/62
[2020-06-11 05:16] LABS: HEMOGLOBIN 8.9 g/dL (13.3-17.7); MEAN PLATELET VOLUME 11.2 fL (9.0-12.2); WHITE BLOOD COUNT 11.8 10^3/uL (4.3-11.0)
[2020-06-11 05:25] LABS: CHLORIDE 105 MMOL/L (98-107); POTASSIUM 3.4 MMOL/L (3.6-5.0); SODIUM 136 MMOL/L (135-145)
[2020-06-11 05:26] LABS: CALCIUM 7.4 MG/DL (8.5-10.1); GLUCOSE 108 MG/DL (70-105)
[2020-06-11 05:28] LABS: CARBON DIOXIDE 24 MMOL/L (21-32)
[2020-06-11 05:30] LABS: PHOSPHORUS 1.9 MG/DL (2.3-4.7)
[2020-06-11 05:31] LABS: BUN/CREATININE RATIO 14; CREATININE SERUM 0.59 MG/DL (0.60-1.30); GFR ESTIMATED > 60
[2020-06-11 05:33] LABS: MAGNESIUM 1.5 MG/DL (1.6-2.4)
[2020-06-11] MEDS ORDERED: KCL 20 MEQ TAB (K-DUR) PO ONE (05:45)
[2020-06-11] MEDS: MAGNESIUM 1 GM/100 ML IVPB 100 ML IV SCH ×3 (05:46→06:47)
[2020-06-11] MEDS: POTASSIUM CL 10MEQ/50ML IVPB 50 ML IV SCH (05:46)
[2020-06-11] MEDS: KCL 20 MEQ TAB (K-DUR) PO SCH (05:47)
[2020-06-11 08:00] VITALS: BP 104/71
[2020-06-11] MEDS: NICOTINE PATCH REMOVAL TP SCH (08:07)
[2020-06-11] MEDS: LACTULOSE SYRUP 10GM/15ML (ENULOSE) 30ML UDC PO SCH ×4 (08:07→21:46)
[2020-06-11] MEDS: RIFAXIMIN 550 MG TABLET (XIFAXAN) PO SCH ×2 (08:07→21:46)
[2020-06-11] MEDS: PANTOPRAZOLE 40 MG (PROTONIX) TAB PO SCH ×2 (08:07→21:46)
[2020-06-11] MEDS: NICOTINE 21 MG (NICODERM) PATCH TD SCH (08:07)
--- NOTE | 2020-06-11 09:00 | NUR ---
PT PULLED OUT PARACENTESIS DRAIN, THIS RN NOTIFIED DR LEONARD. DR LEONARD STATED TO PINCH SKIN AND PLACE DERMABOND TO SITE. DONE BY THIS RN.
[2020-06-11] MEDS: RT-ALBUTEROL INHALER HFA (VENTOLIN HFA) 18 GM IH SCH ×3 (10:45→21:28)
[2020-06-11] MEDS ORDERED: MAGNESIUM 1 GM/100 ML IVPB 100 ML IV ONE (11:30)
[2020-06-11] MEDS ORDERED: SODIUM PHOSPHATE INJ 15 MM in D5W 100 ML IVPB 100 ML IV ONE (11:30)
[2020-06-11 12:00] VITALS: BP 132/63
--- NOTE | 2020-06-11 13:20 | Physical Therapy Daily Note ---
PT Daily Note-Current Subjective Patient is standing unassisted by EOB. Patient had climbed out of bed and over rail. Mental Status Patient Orientation: Person, Situation Attachments: Hunter Catheter, IV Transfers SCALE: Activities may be completed with or without assistive devices. 1-Wtywcgwenz-yoisxbt completes the activity by him/herself with no assistance from a helper. 5-Set-up or Clean-up Assistance-helper sets up or cleans up; patient completes activity. [place] assists only prior to or following the activity. 4-Supervision or Touching Assistance-helper provides verbal cues and/or touching/steadying and/or contact guard assistance as patient completes activity. Assistance may be provided throughout the activity or intermittently. 3-Partial/Moderate Assistance-helper does LESS THAN HALF the effort. [place] lifts, holds or supports trunk or limbs, but provides less than half the effort. 2-Substantial/Maximal Assistance-helper does MORE THAN HALF the effort. [place] lifts or holds trunk or limbs and provides more than half the effort. 3-Gubgnowcn-unqiij does ALL the effort. Patient does none of the effort to complete the activity. Or, the assistance of 2 or more helpers is required for the patient to complete the activity. If activity was not attempted, code reason: 7-Patient Refused. 9-Not Applicable-not attempted and the patient did not perform the activity before the current illness, exacerbation or injury. 10-Not Attempted due to Environmental Limitations-(lack of equipment, weather restraints, etc.). 88-Not Attempted due to Medical Conditions or Safety Concerns. Sit to Stand (QC): 4 Chair/Wzh-yq-Akfgu Xfer(QC): 4 Toilet Transfer (QC): 4 Gait Training Does the Patient Walk?: Yes Distance: 325' Walk 10 feet (QC): 4 Walk 50 ft with 2 Turns(QC): 4 Walk 150 ft (QC): 4 Gait Assistive Device: FWW ataxic gait sequence initially with improvement with increase in activity. Assessment PT attempted to educate patient on safety concerns, however, patient requires continuous redirection to remain on task. Patient is very unaware of safety concerns. Patient is up in recliner with chair alarm activated and call light in hand. PT Doll Repairer Goals Doll Repairer Goals PT Residential Goals Time Frame: Jun 14, 2020 Roll Left & Right (QC): 3 Sit to Lying (QC): 3 Lying-Sitting on Side/Bed(QC): 3 Sit to Stand (QC): 2 PT Plan Treatment/Plan Treatment Plan: Continue Plan of Care Treatment Plan: Bed Mobility, Education, Functional Activity Lisandra, Functional Strength, Gait, Safety, Therapeutic Exercise, Transfers Treatment Duration: Jun 14, 2020 Frequency: 6 times per week Estimated Hrs Per Day: .25 hour per day Patient and/or Family Agrees t: Yes Time/GCodes Time In: 1135 Time Out: 1150 Total Billed Treatment Time: 15 Total Billed Treatment 1 visit GT 15 min EMILY CAMARILLO PT Jun 11, 2020 13:20
--- NOTE | 2020-06-11 13:26 | Progress Note - Hospitalist ---
Subjective HPI/CC On Admission Date Seen by Provider: Jun 11, 2020 Time Seen by Provider: 11:15 Dustin Solares is a 59 year old male with H alcohol dependence who presented with hematemesis. He is a poor historian. He reports that he has been having bloody emesis and melena for an undetermined amount of time. He reports drinking every day. He denies fevers and chills. He denies trouble breathing and cough. He reports abdominal swelling. Subjective/Events-last exam He is feeling better. He wants to go home. He denies pain. He denies trouble breathing. He denies fevers. He wants his gaona catheter out. Focused Exam Time of Focused Exam: 14:30 Objective Exam Vital Signs Vital Signs Date Time Temp Pulse Resp B/P (MAP) Pulse Ox O2 Delivery O2 Flow Rate FiO2 06/11/20 12:55 106 06/11/20 12:00 36.9 18 132/63 (86) 99 Room Air 06/10/20 18:45 1.00 06/08/20 03:12 28 Capillary Refill : Less Than 3 Seconds General Appearance: No Apparent Distress, Chronically ill Respiratory: Lungs Clear, Normal Breath Sounds, No Respiratory Distress Cardiovascular: Regular Rate, Rhythm, No Edema, No Murmur Gastrointestinal: Normal Bowel Sounds, Non Tender, Soft Extremity: Normal Inspection, Non Tender, No Pedal Edema Neurologic/Psychiatric: Alert, Oriented x3, No Motor/Sensory Deficits, Normal Mood/Affect Skin: Warm/Dry, Jaundice Results/Procedures Lab Laboratory Tests 06/11/20 05:10 Patient resulted labs reviewed. Imaging: Reviewed Imaging Report Assessment/Plan Assessment and Plan Assess & Plan/Chief Complaint Decompensated alcoholic cirrhosis Esophageal varices Hepatic encephalopathy Ascites Sepsis Critical illness myopathy Hgb 8.9, stable s/p 5 units PRBC Continue PPI for variceal bleeding Continue Lactulose and Rifaximin for hepatic encephalopathy Add Lasix and Spironolactone for ascites Continue Zosyn, possible pneumonia, unclear source Blood cultures and peritoneal fluid cultures no growth Continue PT/OT DVT prophylaxis: Lovenox Lactic acidosis, resolved Upper GI bleeding, resolved Acute kidney injury, resolved Endotracheally intubated, resolved Acute blood loss anemia, resolved Diagnosis/Problems Diagnosis/Problems (1) WILLIS (acute kidney injury) Status: Resolved Resolution Date/Time: 06/10/20 @ 12:33 (2) Lactic acidosis Status: Resolved Resolution Date/Time: 06/10/20 @ 12:33 (3) Hematemesis Status: Resolved Resolution Date/Time: 06/10/20 @ 12:33 (4) Alcohol dependence Status: Chronic (5) Current smoker Status: Chronic (6) GI bleed Status: Resolved Qualifiers: GI bleed type/associated pathology: gastrointestinal hemorrhage with hematemesis Qualified Codes: K92.0 - Hematemesis Resolution Date/Time: 06/10/20 @ 12:33 (7) Anemia Status: Acute (8) Esophageal varices with bleeding Status: Acute Qualifiers: Esophageal varices type: secondary Qualified Codes: I85.11 - Secondary esophageal varices with bleeding (9) Alcoholic cirrhosis Status: Acute Qualifiers: Ascites presence: with ascites Qualified Codes: K70.31 - Alcoholic ci rrhosis of liver with ascites (10) Decompensated hepatic cirrhosis Status: Acute (11) Ascites Status: Acute Qualifiers: Ascites type: due to alcoholic cirrhosis Qualified Codes: K70.31 - Alcoholic cirrhosis of liver with ascites (12) Hepatic encephalopathy Status: Acute (13) Sepsis Status: Acute Clinical Quality Measures DVT/VTE Risk/Contraindication: Risk Factor Score Per Nursin RFS Level Per Nursing on Admit: 4+=Very High Contraindications-Pharm: Other *list below* Other: PT IS GI BLEED- NO VTE MEDICATION ORDERED AT THIS TIME. WILL USE IRAIS SANCHES MD Jun 11, 2020 13:26
[2020-06-11] MEDS ORDERED: FUROSEMIDE 20 MG (LASIX) TAB PO NR (13:30)
[2020-06-11] MEDS ORDERED: SPIRONOLACTONE 25 MG (ALDACTONE) TAB PO NR (13:30)
[2020-06-11] MEDS: ENOXAPARIN 40 MG/0.4 ML (LOVENOX) SYR SC SCH (13:39)
--- NOTE | 2020-06-11 13:57 | NUR ---
"RD ASSESSMENT PMHx: ETOH dependence; PT INTERACTION: Note pt is a poor historian and is very confused, per chart review. Note all diet information for nutrition follow-up is per Laura CUNNINGHAM or per chart review. Laura states current appetite is good. Note avg PO intake 100% x2meal, per chart review. Laura states current issues with diarrhea, but pt is currently on lactulose, which is causing the diarrhea. Note last BM was 06/11, adn pt currently on bowel regimen of senna PRN, per chart review. ABNORMAL NUTRITION-RELATED LAB VALUES LOW: K 3.4; cr 0.59; Ca 7.4; phos 1.4; Mg 1.5; HIGH: Est. kcal needs: 6715-5635 kcal | 20-25 kcal/kg Est. Pro needs: 60-75 g Pro | 0.8-1.0 g Pro/kg PES STATEMENT: Given current PO intake, no nutrition diagnosis at this time (NO-1.1). INTERVENTION: Continue with current diet order of DYS3 Advanced/Ground Meat diet. Will continue to follow and reassess as pt needs, intake, and status change. Cici NAVARRO, MS RD LD [phone] cell"
[2020-06-11 15:04] VITALS: BP 116/56
[2020-06-11 19:12] VITALS: BP 136/68
[2020-06-12] VITALS: BP 92/55
[2020-06-12] MEDS: PIPERACILLIN/TAZOBACTAM (BULK) 4.5 GM in NS (IVPB) 100 ML IV SCH ×2 (03:12→11:35)
[2020-06-12 03:46] VITALS: BP 108/57
[2020-06-12] MEDS: RT-ALBUTEROL INHALER HFA (VENTOLIN HFA) 18 GM IH SCH ×2 (03:47→08:04)
[2020-06-12 05:29] LABS: HEMOGLOBIN 8.3 g/dL (13.3-17.7); MEAN PLATELET VOLUME 11.4 fL (9.0-12.2); WHITE BLOOD COUNT 13.7 10^3/uL (4.3-11.0)
[2020-06-12 05:37] LABS: CHLORIDE 104 MMOL/L (98-107); POTASSIUM 3.4 MMOL/L (3.6-5.0); SODIUM 135 MMOL/L (135-145)
[2020-06-12 05:38] LABS: CALCIUM 7.5 MG/DL (8.5-10.1)
[2020-06-12 05:39] LABS: GLUCOSE 98 MG/DL (70-105)
[2020-06-12 05:41] LABS: CARBON DIOXIDE 22 MMOL/L (21-32)
[2020-06-12 05:43] LABS: CREATININE SERUM 0.65 MG/DL (0.60-1.30); GFR ESTIMATED > 60; PHOSPHORUS 2.5 MG/DL (2.3-4.7)
[2020-06-12 05:44] LABS: BUN/CREATININE RATIO 12
[2020-06-12 05:45] LABS: MAGNESIUM 1.8 MG/DL (1.6-2.4)
[2020-06-12] MEDS: POTASSIUM CL 10MEQ/50ML IVPB 50 ML IV SCH (05:48)
[2020-06-12] MEDS: MAGNESIUM 1 GM/100 ML IVPB 100 ML IV SCH (05:48)
[2020-06-12] MEDS: KCL 20 MEQ TAB (K-DUR) PO SCH (05:51)
[2020-06-12] MEDS ORDERED: KCL 20 MEQ TAB (K-DUR) PO ONE (06:00)
--- NOTE | 2020-06-12 06:30 | NUR ---
Notified Dr Dodson of critical platelet count 37 up from 32 yesterday. no new orders at this time.
[2020-06-12 07:57] VITALS: BP 102/74
[2020-06-12] MEDS: NICOTINE PATCH REMOVAL TP SCH ×2 (08:40→08:50)
[2020-06-12] MEDS: PANTOPRAZOLE 40 MG (PROTONIX) TAB PO SCH (08:50)
[2020-06-12] MEDS: LACTULOSE SYRUP 10GM/15ML (ENULOSE) 30ML UDC PO SCH ×2 (08:50→11:35)
[2020-06-12] MEDS: NICOTINE 21 MG (NICODERM) PATCH TD SCH (08:50)
[2020-06-12] MEDS: RIFAXIMIN 550 MG TABLET (XIFAXAN) PO SCH (08:56)
[2020-06-12] MEDS ORDERED: FUROSEMIDE 20 MG (LASIX) TAB PO SCH (09:00)
[2020-06-12] MEDS ORDERED: SPIRONOLACTONE 25 MG (ALDACTONE) TAB PO SCH (09:00)
--- NOTE | 2020-06-12 10:48 | NUR ---
PALLIATIVE CARE RN in to see patient to discuss and educate on assistance options for home. I educated on hospice and the role they would play in his continue care after discharge. I will give him brochures for the [facility] hospices. We also discussed that he will need to establish with [facility] in [place] after discharge. He reports that he is done drinking and smoking and that his significant other is also quitting.
--- NOTE | 2020-06-12 11:33 | NUR ---
DISCHARGE PLANNING: patient has chosen [facility] to follow after discharge. I will call and see if [facility]. I have spoken to [facility] and have made an appt. for 4 p.m. today to re-establish and for [facility] oversight. Dr. Pritchard spoke with significant other, Erin.
[2020-06-12] MEDS: ENOXAPARIN 40 MG/0.4 ML (LOVENOX) SYR SC SCH (11:34)
[2020-06-12] MEDS ORDERED: PANT40TA52 PO (11:55)
[2020-06-12] MEDS ORDERED: FURO20TA4 PO (11:55)
[2020-06-12] MEDS ORDERED: LACT20SO2 PO (11:55)
[2020-06-12] MEDS ORDERED: SPIR25TA5 PO (11:55)
[2020-06-12 12:08] VITALS: BP 114/72
[2020-06-12 14:26] VITALS: BP 114/72
--- NOTE | 2020-06-12 16:48 | Discharge Summary ---
Discharge Summary Reconcile Patient Problems Problems Reviewed?: Yes Instructions for Patient Via [facility], Assessment/Instructions Take medications as prescribed. You are being set up with home health care. Establish care with [facility]. Physician to follow Patient: [facility] Discharge Diet for Home: Low Sodium Diet Hospital Course Date of Admission: May 29, 2020 at 17:06 Admission Diagnosis : Acute blood loss anemia Family Physician/Provider: [place] Date of Discharge: 06/12/20 Discharge Diagnosis: Decompensated hepatic cirrhosis, acute blood loss anemia due to bleeding esophageal varices Hospital Course: Dustin Solares is a 59 year old male who presented with hematemesis and was admitted with acute upper GI bleeding. He underwent upper endoscopy and was found to have grade 2 esophageal varices without active bleeding. He required 5 units PRBC during his stay, but his hemoglobin stabilized. He was started on a PPI and will continue Pantoprazole as an outpatient. His course was complicated by hepatic encephalopathy. He required intubation for airway protection due to his altered mental status. He was treated with Lactulose and Rifaximin and improved. He was continued on Lactulose on discharge. He had a large volume paracentesis performed due to ascites. He had issues with fevers and was treated with a course of antibiotics for possible spontaneous bacterial peritonitis, but his cultures had no growth. He was started on Lasix and Spironolactone to be continued as an outpatient for ascites prevention. Due to his end stage liver disease, palliative care was consulted and assisted with his care. He should be considered for hospice care as an outpatient. He is going to establish care with [facility] for primary care. He was set up with home health care on discharge. Labs and Pending Lab Test: Laboratory Tests 06/12/20 05:15: White Blood Count 13.7H, Red Blood Count 2.72L, Hemoglobin 8.3L, Hematocrit 25L, Mean Corpuscular Volume 92, Mean Corpuscular Hemoglobin 31, Mean Corpuscular Hemoglobin Concent 33, Red Cell Distribution Width 18.7H, Platelet Count 179, Mean Platelet Volume 11.4, Sodium Level 135, Potassium Level 3.4L, Chloride Level 104, Carbon Dioxide Level 22, Anion Gap 9, Blood Urea Nitrogen 8, Creatinine 0.65, Estimat Glomerular Filtration Rate > 60, BUN/Creatinine Ratio 12, Glucose Level 98, Calcium Level 7.5L, Phosphorus Level 2.5, Magnesium Level 1.8 Microbiology 06/08/20 Blood Culture - Preliminary, Resulted No growth 06/08/20 Gram Stain - Final, Complete 06/08/20 Body Fluid Culture - Final, Complete No growth 05/30/20 Gram Stain - Final, Complete 05/30/20 Sputum Culture - Final, Complete Usual upper respiratory josé miguel Home Meds Active Pantoprazole Sodium 40 Mg Tablet.dr 40 Mg PO BID 60 Days Furosemide 20 Mg Tablet 20 Mg PO DAILY 30 Days Lactulose 20 Gm/30 Ml Solution 10 Gm PO QID 30 Days Spironolactone 25 Mg Tablet 50 Mg PO DAILY 30 Days Consulations Cardiology, General surgery, Pulmonology Patient Allergies: Coded Allergies: No Known Drug Allergies (Unverified , 05/29/20) Home Health Need/Face to Face Date of Face to Face: Jun 12, 2020 Clinical Findings: Generalized weakness and fatigue, Muscle weakness I have seen Pt [id number]: Yes Discharged To: Home Diagnosis/Conditions: Decompensated cirrhosis Debility Problems/Diagnosis/Condition: (1) Debility (2) Decompensated hepatic cirrhosis Patient is Homebound due to: Nanci fall risk due to instabilty, Muscle weakness Homebound Status Due to the above stated illness, injury or surgical procedure (medical condition or diagnosis) and associated clinical findings, the patient is homebound because of his/her inability to leave home except with aid of a suppor tive device and/or person AND leaving the home requires a considerable and taxing effort or is medically contraindicated. Pt req the following assistanc: Aid of another person Home Health Nursing Orders Home Health Services Order: Nursing Services, Bracelet Form Coverer-Evaluate & Treat, Physical Therapy-Evaluate & Treat Home Health Infusion Therapy Line Start Date: May 30, 2020 Therapy Orders Therapy Orders: OT (must have SN or PT order), Physical Therapy Therapy Specific Orders: Eval assistive deivces, Teach enviro modifications/safety, Gait training, Increase strength/endurance Certify Stmt I certify that this patient is under my care and that I, a nurse practitioner or a physician; a lead assistant manager working with me, had a face to face encounter that - meets the physician face to face encounter requirements with this patient as dated. Discharge Physical Exam General: Alert, Cooperative, No Acute Distress HEENT: Atraumatic, EOMI, Mucous Memb Moist/[place] Lungs: Clear to Auscultation, Normal Air Movement Heart: Regular Rate, Normal S1, Normal S2, No Murmurs Abdomen: Normal Bowel Sounds, Soft, No Tenderness Extremities: No Edema, No Tenderness/Swelling Skin: No Rashes, No Significant Lesion, Other (jaundice) Neuro: Normal Speech, Other (motor weakness) Psych/Mental Status: Mood NL IRAIS GIBSON MD Jun 12, 2020 16:47
== END 2020-06-12 14:28 | disposition home health service (06) | DRG 432 ==
LOC: ER 10:59 → ICU 17:06 → CSD 06-07 08:21 → 4TH 06-10 18:34
PROVIDERS: ADMIT Internal Medicine; ATTEND Internal Medicine
PROC: 0BH17EZ Insertion of Endotracheal Airway into Trachea, Via Natural or Artificial Opening (ICD-10-PCS; 2020-05-30)
PROC: 02HV33Z Insertion of Infusion Device into Superior Vena Cava, Percutaneous Approach (ICD-10-PCS; 2020-05-30)
PROC: 5A1955Z Respiratory Ventilation, Greater than 96 Consecutive Hours (ICD-10-PCS; 2020-05-30)
PROC: 0DB68ZX Excision of Stomach, Via Natural or Artificial Opening Endoscopic, Diagnostic (ICD-10-PCS; 2020-05-31)
PROC: 0DB48ZX Excision of Esophagogastric Junction, Via Natural or Artificial Opening Endoscopic, Diagnostic (ICD-10-PCS; principal; 2020-05-31 12:30)
PROC: 0W9G3ZZ Drainage of Peritoneal Cavity, Percutaneous Approach (ICD-10-PCS; 2020-06-04)
DX: K70.31 Alcoholic cirrhosis of liver with ascites (principal); I85.11 Secondary esophageal varices with bleeding; A41.9 Sepsis, unspecified organism; J96.90 Respiratory failure, unspecified, unspecified whether with hypoxia or hypercapnia; E87.2 Acidosis; N17.9 Acute kidney failure, unspecified; D62 Acute posthemorrhagic anemia; G72.81 Critical illness myopathy; F41.9 Anxiety disorder, unspecified; Z20.828 Contact with and (suspected) exposure to other viral communicable diseases; F32.9 Major depressive disorder, single episode, unspecified; F17.210 Nicotine dependence, cigarettes, uncomplicated; K21.9 Gastro-esophageal reflux disease without esophagitis; F10.20 Alcohol dependence, uncomplicated; I95.9 Hypotension, unspecified; K72.90 Hepatic failure, unspecified without coma; E83.42 Hypomagnesemia
CPT/HCPCS: 36415; 36569; 71045; 74019; 76705; 76937; 80048; 80053; 80202; 80320; 81000; 82140; 82805; 82962; 83605; 83690; 83735; 84100; 84145; 84478; 85007; 85014; 85018; 85025; 85027; 85610; 85730; 86703; 86850; 86900; 86901; 86920; 87040; 87070; 87077; 87081; 87186; 87205; 87635; 88112; 88305; 94002; 94003; 94640; 94760; 94799; 96361; 96374; 96375

== ENCOUNTER 2020-06-24 14:24 | Emergency (ER) | payer MEDICAID ==
[~2020-06-24] VITALS: Ht 170.2 cm; Wt 81.6 kg
[~2020-06-24 14:24] MED LIST: FURO20TA4 PO; LACT20SO2 PO; PANT40TA52 PO; SPIR25TA5 PO
--- NOTE | 2020-06-24 14:47 | ED Abdominal Pain ---
General Stated Complaint: ABD FILLING FULL OF FLUID Source of Information: Patient Exam Limitations: No Limitations History of Present Illness Date Seen by Provider: Jun 24, 2020 Time Seen by Provider: 14:45 Initial Comments To ER with reports of abdominal distention and discomfort as well as insomnia. He has a history of alcoholism with cirrhosis. He had a paracentesis done latter half of last month when he was admitted for a GI bleed. No fevers or chills. Timing/Duration: 1-2 Days Severity/Quality: Moderate Location: Generalized Abdomen Radiation: No Radiation Associated Symptoms: Nausea/Vomiting Allergies and Home Medications Allergies Coded Allergies: No Known Drug Allergies (Unverified , 05/29/20) Home Medications Furosemide 20 Mg Tablet, 20 MG PO DAILY Prescribed by: IRAIS GIBSON on 06/12/20 115 Lactulose 20 Gm/30 Ml Solution, 10 GM PO QID Prescribed by: IRAIS GIBSON on 06/12/20 115 Pantoprazole Sodium 40 Mg Tablet.dr, 40 MG PO BID Prescribed by: IRAIS GIBSON on 06/12/20 115 Spironolactone 25 Mg Tablet, 50 MG PO DAILY Prescribed by: IRAIS GIBSON on 06/12/20 115 Patient Home Medication List Home Medication List Reviewed: Yes Review of Systems Review of Systems Constitutional: see HPI; No chills, No fever EENTM: No Symptoms Reported Respiratory: No Symptoms Reported Cardiovascular: No Symptoms Reported Gastrointestinal: See HPI, Abdominal Pain Genitourinary: No Symptoms Reported Musculoskeletal: no symptoms reported Skin: no symptoms reported Psychiatric/Neurological: No Symptoms Reported Endocrine: No Symptoms Reported Hematologic/Lymphatic: No Symptoms Reported Past Kjbewyl-Iidlcq-Icpfok Hx Patient Social History Alcohol Beverage of Choice: Whiskey, Wine Type Used: Cigarettes 2nd Hand Smoke Exposure: Yes Recent Foreign Travel: No Contact w/Someone Who Travel: No Recent Hopitalizations: No Past Medical History Surgeries: Yes (l ankle, ear) Orthopedic Respiratory: No Cardiac: No Neurological: No Genitourinary: No Gastrointestinal: No Musculoskeletal: No Endocrine: No HEENT: No Cancer: No Psychosocial: No Blood Disorders: No Family Medical History Patient reports no known family medical history. Physical Exam Vital Signs Vital Signs - First Documented 06/24/20 14:37 Temp 36.8 Pulse 99 Resp 20 Pulse Ox 99 O2 Delivery Room Air Capillary Refill : Height/Weight/BMI Height: '" Weight: lbs. oz. kg; 21.00 BMI Method: General Appearance: WD/WN, no apparent distress HEENT: PERRL/EOMI, normal ENT inspection Neck: non-tender, full range of motion Respiratory: no respiratory distress, no accessory muscle use Cardiovascular: regular rate, rhythm, no murmur Gastrointestinal: normal bowel sounds, non tender, soft Extremities: normal range of motion, non-tender Neurologic/Psychiatric: alert, normal mood/affect, oriented x 3 Skin: normal color, warm/dry Procedures/Interventions Date of ETT Placement: May 30, 2020 Time of ETT Placement: 529 Progress/Results/Core Measures Results/Orders Lab Results Laboratory Tests Test 06/24/20 15:14 06/24/20 15:41 Range/Units White Blood Count 8.4 4.3-11.0 10^3/uL Red Blood Count 2.98 L 4.30-5.52 10^6/uL Hemoglobin 9.2 L 13.3-17.7 g/dL Hematocrit 26 L 40-54 % Mean Corpuscular Volume 88 80-99 fL Mean Corpuscular Hemoglobin 31 25-34 pg Mean Corpuscular Hemoglobin Concent 35 32-36 g/dL Red Cell Distribution Width 19.3 H 10.0-14.5 % Platelet Count 232 130-400 10^3/uL Mean Platelet Volume 10.2 9.0-12.2 fL Immature Granulocyte % (Auto) 1 % Neutrophils (%) (Auto) 46 42-75 % Lymphocytes (%) (Auto) 33 12-44 % Monocytes (%) (Auto) 15 H 0-12 % Eosinophils (%) (Auto) 5 0-10 % Basophils (%) (Auto) 1 0-10 % Neutrophils # (Auto) 3.9 1.8-7.8 10^3/uL Lymphocytes # (Auto) 2.7 1.0-4.0 10^3/uL Monocytes # (Auto) 1.2 H 0.0-1.0 10^3/uL Eosinophils # (Auto) 0.4 H 0.0-0.3 10^3/uL Basophils # (Auto) 0.1 0.0-0.1 10^3/uL Immature Granulocyte # (Auto) 0.0 0.0-0.1 10^3/uL Sodium Level 133 L 135-145 MMOL/L Potassium Level 3.7 3.6-5.0 MMOL/L Chloride Level 102 98-107 MMOL/L Carbon Dioxide Level 25 21-32 MMOL/L Anion Gap 6 5-14 MMOL/L Blood Urea Nitrogen 7 7-18 MG/DL Creatinine 0.67 0.60-1.30 MG/DL Estimat Glomerular Filtration Rate > 60 BUN/Creatinine Ratio 10 Glucose Level 106 H 70-105 MG/DL Calcium Level 8.1 L 8.5-10.1 MG/DL Corrected Calcium 9.1 8.5-10.1 MG/DL Total Bilirubin 2.3 H 0.1-1.0 MG/DL Aspartate Amino Transf (AST/SGOT) 68 H 5-34 U/L Alanine Aminotransferase (ALT/SGPT) 28 0-55 U/L Alkaline Phosphatase 72 40-136 U/L Total Protein 6.9 6.4-8.2 GM/DL Albumin 2.8 L 3.2-4.5 GM/DL My Orders Orders - YAJAIRA ZELAYA APRN Cbc With Automated Diff (06/24/20 14:31) Comprehensive Metabolic Panel (06/24/20 14:31) Vital Signs/I&O 06/24/20 14:37 Temp 36.8 Pulse 99 Resp 20 B/P (MAP) Pulse Ox 99 O2 Delivery Room Air Departure Communication (Admissions) 3663-Dr Aranda has been here and did bedside US guided paracentesis on the right. Total of 3250 ml straw colored ascitic fluid aspirated. Sent to lab for culture. Drain removed and covered with gauze and opsite. pt tolerated well with stable vital signs. Impression Primary Impression: Alcoholic cirrhosis Additional Impression: Ascites Disposition: 01 HOME, SELF-CARE Condition: Stable Departure-Patient Inst. Decision time for Depature: 14:47 Referrals: [facility] (PCP/Family) Primary Care Physician AUGUST ARANDA DO Patient Instructions: Diet for Cirrhosis Add. Discharge Instructions: 1. Return to ER for any concerns. Scripts Lorazepam (Ativan) 0.5 Mg Tablet 0.5 MG PO HS PRN for ANXIETY for 7 Days, #10 TAB Prov: YAJAIRA ZELAYA APRN 06/24/20 YAJAIRA ZELAYA APRN Jun 24, 2020 14:47
[2020-06-24 15:28] LABS: BASOPHILS # (AUTO) 0.1 10^3/uL (0.0-0.1); BASOPHILS % (AUTO) 1 % (0-10); EOSINOPHILS # (AUTO) 0.4 10^3/uL (0.0-0.3); EOSINOPHILS % (AUTO) 5 % (0-10); HEMATOCRIT 26 % (40-54); HEMOGLOBIN 9.2 g/dL (13.3-17.7); LYMPHOCYTES # (AUTO) 2.7 10^3/uL (1.0-4.0); LYMPHOCYTES % (AUTO) 33 % (12-44); MEAN CORPUSCULAR HEMOGLOBIN 31 pg (25-34); MEAN CORPUSCULAR HGB CONC 35 g/dL (32-36); MEAN CORPUSCULAR VOLUME 88 fL (80-99); MEAN PLATELET VOLUME 10.2 fL (9.0-12.2); MONOCYTES # (AUTO) 1.2 10^3/uL (0.0-1.0); MONOCYTES % (AUTO) 15 % (0-12); NEUTROPHILS # (AUTO) 3.9 10^3/uL (1.8-7.8); NEUTROPHILS % (AUTO) 46 % (42-75); PLATELET COUNT 232 10^3/uL (130-400); WHITE BLOOD COUNT 8.4 10^3/uL (4.3-11.0)
[2020-06-24 15:35] LABS: ALBUMIN 2.8 GM/DL (3.2-4.5); CHLORIDE 102 MMOL/L (98-107); POTASSIUM 3.7 MMOL/L (3.6-5.0); SODIUM 133 MMOL/L (135-145)
[2020-06-24 15:37] LABS: CALCIUM 8.1 MG/DL (8.5-10.1)
[2020-06-24 15:38] LABS: GLUCOSE 106 MG/DL (70-105); TOTAL PROTEIN 6.9 GM/DL (6.4-8.2)
[2020-06-24 15:39] LABS: BILIRUBIN,TOTAL 2.3 MG/DL (0.1-1.0); CARBON DIOXIDE 25 MMOL/L (21-32)
[2020-06-24 15:41] LABS: ALKALINE PHOSPHATASE 72 U/L (40-136); CREATININE SERUM 0.67 MG/DL (0.60-1.30); GFR ESTIMATED > 60
[2020-06-24 15:42] LABS: BUN/CREATININE RATIO 10
[2020-06-24 15:44] LABS: ALANINE AMINOTRANSFERASE 28 U/L (0-55)
[2020-06-24] MEDS ORDERED: LORA-404 PO (16:19)
[2020-06-24 16:33] VITALS: BP 137/86
--- NOTE | 2020-06-24 21:29 | Consultation - Surgery ---
History of Present Illness History of Present Illness Patient Consulted On(roshan/time) 06/24/20 21:23 Date Seen by Provider: Jun 24, 2020 Time Seen by Provider: 16:00 History of Present Illness Consult requested by Thomas Zelaya for symptomatic ascites Patient seen and evaluated in the emergency department. Patient is a 60-year-old male who has had increasing abdominal distention over the last couple days. Patient states he has diffuse discomfort which he states is moderate. Patient states it is worsening as the stomach continues to increase in size. Nothing is made it better. Patient did previously have to have a paracentesis performed which helped when he had this previously. Patient states he is having increasing shortness of breath due to the pressure of the abdomen. Patient with history of alcoholic cirrhosis and history of GI bleed which he had to be admitted for. There is no radiation of pain. He is having slight nausea and vomiting. Patient denies any fever sweats chills. Allergies and Home Medications Allergies Coded Allergies: No Known Drug Allergies (Unverified , 05/29/20) Home Medications Furosemide 20 Mg Tablet, 20 MG PO DAILY Prescribed by: IRAIS GIBSON on 06/12/20 1155 Lactulose 20 Gm/30 Ml Solution, 10 GM PO QID Prescribed by: IRAIS GIBSON on 06/12/20 1155 Lorazepam 0.5 Mg Tablet, 0.5 MG PO HS PRN for ANXIETY Prescribed by: THOMAS ZELAYA on 06/24/20 1619 Pantoprazole Sodium 40 Mg Tablet.dr, 40 MG PO BID Prescribed by: IRAIS GIBSON on 06/12/20 1155 Spironolactone 25 Mg Tablet, 50 MG PO DAILY Prescribed by: IRAIS GIBSON on 06/12/20 1155 Patient Home Medication List Home Medication List Reviewed: Yes Past Hwypcwh-Botjof-Chrzmc Hx Patient Social History Alcohol Use: Past History Number of Drinks Today: HH Recreational Drug Use: No Smoking Status: Current Everyday Smoker Type Used: Cigarettes 2nd Hand Smoke Exposure: Yes Recent Foreign Travel: No Contact w/Someone Who Travel: No Recent Infectious Disease Expo: No Recent Hopitalizations: No Immunizations Up To Date Tetanus Booster (TDap): Unknown PED Vaccines UTD: Yes Surgeries History of Surgeries: Yes (l ankle, ear) Surgeries: Orthopedic Respiratory History of Respiratory Disorde: No Cardiovascular History of Cardiac Disorders: No Neurological History of Neurological Disord: No Genitourinary History of Genitourinary Disor: No Gastrointestinal History of Gastrointestinal Di: No Musculoskeletal History of Musculoskeletal Dis: No Endocrine History of Endocrine Disorders: No HEENT History of HEENT Disorders: No Cancer History of Cancer: No Psychosocial History of Psychiatric Problem: No Blood Transfusions History of Blood Disorders: No Reviewed Nursing Assessment Reviewed/Agree w Nursing PMH: Yes Family Medical History Significant Family History: No Pertinent Family Hx Family Medial History: Patient reports no known family medical history. Review of Systems-General Constitutional: No chills, No fever EENTM: No blurred vision Respiratory: No cough; short of breath Cardiovascular: No chest pain, No edema Gastrointestinal: abdominal pain; No hematemesis; nausea, vomiting Genitourinary: No decreased output, No discharge Musculoskeletal: No back pain, No joint pain Skin: No change in color, No change in hair/nails Psychiatric/Neurological: Denies Anxiety, Denies Depressed, Denies Emotional Problems All Other Systems Reviewed Negative Unless Noted: Yes (Negative excepted noted.) Physical Exam-General Problems Physical Exam Vital Signs Vital Signs - First Documented 06/24/20 14:37 Temp 36.8 Pulse 99 Resp 20 B/P (MAP) 126/81 (96) Pulse Ox 99 O2 Delivery Room Air Capillary Refill : Less Than 3 Seconds General Appearance: WD/WN, no apparent distress HEENT: PERRL/EOMI, normal ENT inspection Neck: non-tender, supple, normal inspection Respiratory: chest non-tender, no respiratory distress, no accessory muscle use Cardiovascular: regular rate, rhythm, no JVD Gastrointestinal: distended (Fluid wave present), tenderness (Diffuse minimal), other (Abdomen taut) Back: normal inspection, no CVA tenderness Extremities: non-tender, normal inspection, no pedal edema Neurologic/Psychiatric: alert, normal mood/affect, oriented x 3 Skin: normal color, warm/dry Lymphatic: no adenopathy Data Review Labs Laboratory Tests 06/24/20 15:14: White Blood Count 8.4, Red Blood Count 2.98L, Hemoglobin 9.2L, Hematocrit 26L, Mean Corpuscular Volume 88, Mean Corpuscular Hemoglobin 31, Mean Corpuscular Hemoglobin Concent 35, Red Cell Distribution Width 19.3H, Platelet Count 232, Mean Platelet Volume 10.2, Immature Granulocyte % (Auto) 1, Neutrophils (%) (Auto) 46, Lymphocytes (%) (Auto) 33, Monocytes (%) (Auto) 15H, Eosinophils (%) (Auto) 5, Basophils (%) (Auto) 1, Neutrophils # (Auto) 3.9, Lymphocytes # (Auto) 2.7, Monocytes # (Auto) 1.2H, Eosinophils # (Auto) 0.4H, Basophils # (Auto) 0.1, Immature Granulocyte # (Auto) 0.0 06/24/20 15:41: Sodium Level 133L, Potassium Level 3.7, Chloride Level 102, Carbon Dioxide Level 25, Anion Gap 6, Blood Urea Nitrogen 7, Creatinine 0.67, Estimat Glomerular Filtration Rate > 60, BUN/Creatinine Ratio 10, Glucose Level 106H, Calcium Level 8.1L, Corrected Calcium 9.1, Total Bilirubin 2.3H, Aspartate Amino Transf (AST/SGOT) 68H, Alanine Aminotransferase (ALT/SGPT) 28, Alkaline Phosphatase 72, Total Protein 6.9, Albumin 2.8L Assessment/Plan Assessment/Plan Assessment/Plan Alcoholic cirrhosis Symptomatic ascites Diffuse abdominal pain Patient discussed risk and benefits of having ultrasound-guided paracentesis which patient understands risk and benefits and wishes to proceed to try to improve his symptoms. Patient understands all risk and benefits and wishes to proceed. If symptoms improved after paracentesis can be discharged home. Procedure: Ultrasound-guided paracentesis. Ultrasound was used to isolate the largest pocket which was in the right side of the abdomen. The area was then prepped and draped in a sterile fashion 3 mL of 1% lidocaine was used to anesthetize the area. An 11 blade scalpel was used to make a small skin incision and the safety centesis needle and catheter were advanced until straw-colored fluid was withdrawn. The catheter was then advanced and the needle was removed. A total of 3250 mL of straw-colored fluid was withdrawn. The catheter was then removed and sterile bandage was applied. Patient tolerated procedure well without any complications. AUGUST CARDOSO DO Jun 24, 2020 21:29
== END 2020-06-24 16:33 | disposition home or self-care (01) ==
LOC: EDUNIT# 14:24 → ER 14:30
DX: K70.31 Alcoholic cirrhosis of liver with ascites (principal); Z77.22 Contact with and (suspected) exposure to environmental tobacco smoke (acute) (chronic)
CPT/HCPCS: 36415; 80053; 85025; 99282

== ENCOUNTER 2020-06-30 12:19 | Emergency (ER) | payer MEDICAID ==
[~2020-06-30] VITALS: Ht 170.1 cm; Wt 74.0 kg
[~2020-06-30 12:19] MED LIST changes: +LORA-404 PO
--- NOTE | 2020-06-30 12:56 | ED GI ---
General Chief Complaint: Abdominal/GI Problems Stated Complaint: ABD DISTENTION Source of Information: Patient Exam Limitations: No Limitations History of Present Illness Date Seen by Provider: Jun 30, 2020 Time Seen by Provider: 12:46 Initial Comments This is a 60-year-old male who presents to the ER with complaints of abdominal swelling 3 days. States he has a history of liver failure and had a paracentesis approximately 1 month ago. Reports the swelling is increasing that it is making it difficult to breathe. States he quit drinking alcohol apx a month ago. Smokes marijuana occasionally. No other illicit drug use reported. Denies fevers, chills, cough, chest pain, nausea, vomiting, diarrhea, abdominal pain. Allergies and Home Medications Allergies Coded Allergies: No Known Drug Allergies (Unverified , 05/29/20) Home Medications Furosemide 20 Mg Tablet, 20 MG PO DAILY Prescribed by: IRAIS GIBSON on 06/12/20 1155 Lactulose 20 Gm/30 Ml Solution, 10 GM PO QID Prescribed by: IRAIS GIBSON on 06/12/20 1155 Lorazepam 0.5 Mg Tablet, 0.5 MG PO HS PRN for ANXIETY Prescribed by: YAJAIRA ZELAYA on 06/24/20 1619 Pantoprazole Sodium 40 Mg Tablet.dr, 40 MG PO BID Prescribed by: IRAIS GIBSON on 06/12/20 1155 Spironolactone 25 Mg Tablet, 50 MG PO DAILY Prescribed by: IRAIS GIBSON on 06/12/20 1155 Patient Home Medication List Home Medication List Reviewed: Yes Review of Systems Review of Systems Constitutional: no symptoms reported EENTM: No Symptoms Reported Respiratory: See HPI Cardiovascular: No Symptoms Reported Gastrointestinal: See HPI Genitourinary: No Symptoms Reported Musculoskeletal: no symptoms reported Skin: no symptoms reported Psychiatric/Neurological: No Symptoms Reported Endocrine: No Symptoms Reported Hematologic/Lymphatic: No Symptoms Reported Past Ehqqhtp-Vjucxn-Gaxpuj Hx Patient Social History Alcohol Beverage of Choice: Whiskey, Wine Type Used: Cigarettes 2nd Hand Smoke Exposure: Yes Recent Foreign Travel: No Contact w/Someone Who Travel: No Recent Hopitalizations: No Immunizations Up To Date Tetanus Booster (TDap): Unknown PED Vaccines UTD: Yes Past Medical History Surgeries: Yes (l ankle, ear) Orthopedic Respiratory: No Cardiac: No Neurological: No Genitourinary: No Gastrointestinal: No Musculoskeletal: No Endocrine: No HEENT: No Cancer: No Psychosocial: No Blood Disorders: No Family Medical History Patient reports no known family medical history. No Pertinent Family Hx Physical Exam Vital Signs Vital Signs - First Documented 06/30/20 06/30/20 12:40 15:40 Temp 35.9 Pulse 99 Resp 18 B/P (MAP) 121/77 (92) Pulse Ox 99 Capillary Refill : Height/Weight/BMI Height: '" Weight: lbs. oz. kg; 28.00 BMI Method: General Appearance: WD/WN, no apparent distress HEENT: PERRL/EOMI, pharynx normal Neck: full range of motion, normal inspection Respiratory: lungs clear, no respiratory distress, no accessory muscle use, decreased breath sounds Cardiovascular: regular rate, rhythm, no murmur Gastrointestinal: normal bowel sounds, distended; No tenderness; other (7cm fluid pocket noted on US of right abdomen ) Extremities: normal range of motion, non-tender, normal inspection Neurologic/Psychiatric: no motor/sensory deficits, alert, normal mood/affect, oriented x 3 Skin: normal color, warm/dry Procedures/Interventions Date of ETT Placement: May 30, 2020 Time of ETT Placement: 529 Progress/Results/Core Measures Results/Orders Lab Results Laboratory Tests Test 06/30/20 13:15 Range/Units White Blood Count 8.7 4.3-11.0 10^3/uL Red Blood Count 3.32 L 4.30-5.52 10^6/uL Hemoglobin 9.9 L 13.3-17.7 g/dL Hematocrit 29 L 40-54 % Mean Corpuscular Volume 87 80-99 fL Mean Corpuscular Hemoglobin 30 25-34 pg Mean Corpuscular Hemoglobin Concent 34 32-36 g/dL Red Cell Distribution Width 19.4 H 10.0-14.5 % Platelet Count 224 130-400 10^3/uL Mean Platelet Volume 11.1 9.0-12.2 fL Immature Granulocyte % (Auto) 0 % Neutrophils (%) (Auto) 46 42-75 % Lymphocytes (%) (Auto) 31 12-44 % Monocytes (%) (Auto) 16 H 0-12 % Eosinophils (%) (Auto) 5 0-10 % Basophils (%) (Auto) 1 0-10 % Neutrophils # (Auto) 4.0 1.8-7.8 10^3/uL Lymphocytes # (Auto) 2.7 1.0-4.0 10^3/uL Monocytes # (Auto) 1.4 H 0.0-1.0 10^3/uL Eosinophils # (Auto) 0.5 H 0.0-0.3 10^3/uL Basophils # (Auto) 0.1 0.0-0.1 10^3/uL Immature Granulocyte # (Auto) 0.0 0.0-0.1 10^3/uL Prothrombin Time 18.8 H 12.2-14.7 SEC INR Comment 1.5 H 0.8-1.4 Activated Partial Thromboplast Time 39 H 24-35 SEC Sodium Level 133 L 135-145 MMOL/L Potassium Level 3.6 3.6-5.0 MMOL/L Chloride Level 102 98-107 MMOL/L Carbon Dioxide Level 21 21-32 MMOL/L Anion Gap 10 5-14 MMOL/L Blood Urea Nitrogen 6 L 7-18 MG/DL Creatinine 0.70 0.60-1.30 MG/DL Estimat Glomerular Filtration Rate > 60 BUN/Creatinine Ratio 9 Glucose Level 110 H 70-105 MG/DL Calcium Level 8.1 L 8.5-10.1 MG/DL Corrected Calcium 9.1 8.5-10.1 MG/DL Total Bilirubin 2.6 H 0.1-1.0 MG/DL Aspartate Amino Transf (AST/SGOT) 75 H 5-34 U/L Alanine Aminotransferase (ALT/SGPT) 28 0-55 U/L Alkaline Phosphatase 85 40-136 U/L Total Protein 7.3 6.4-8.2 GM/DL Albumin 2.8 L 3.2-4.5 GM/DL Serum Alcohol < 10 <10 MG/DL My Orders Orders - JOSE DING APRN Comprehensive Metabolic Panel (06/30/20 12:56) Acute Abd Series (06/30/20 12:56) Cbc With Automated Diff (06/30/20 12:56) Protime With Inr (06/30/20 12:56) Partial Thromboplastin Time (06/30/20 12:56) Alcohol (06/30/20 13:15) Vital Signs/I&O 06/30/20 06/30/20 12:40 15:40 Temp 35.9 Pulse 99 89 Resp 18 18 B/P (MAP) 121/77 (92) 129/85 Pulse Ox 99 Progress Progress Note : Progress Note Pt. examined, in no acute distress. Labs and acute abd series ordered. Will discuss with surgeon enterprise application developer when labs returned. No needs identified at this t mickey. Labs reviewed. Hgb stable, no elevation in WBC. Acute abd series neg. Discussed case with Dr. Aranda, recommended bedside US to assess size of fluid collection. If 6cm or less and patient stable, will plan for USG paracentesis tomorrow afternoon. Bedside US shows 7cm fluid collection on right side of abdomen. Discussed plan for USG paracentesis tomorrow and patient states his symptoms are not too bad today and is ok to do OP procedure tomorrow. Updated Dr. Aranda. Reviewed discharge plan and he is agreeable with plan. Diagnostic Imaging Diagonstic Imaging: Xray Plain Films/CT/US/NM/MRI: abdomen Comments NAME: HELIO CHOI MED REC#: [id number] PT STATUS: REG ER : 1960 PHYSICIAN: JOSE DING WEB SITE PROJECT MANAGER ADMIT DATE: 06/30/20/ER Signed Date of Exam:06/30/20 ACUTE ABD SERIES EXAMINATION: Abdominal series and chest radiograph HISTORY: Distended abdomen COMPARISON: Chest radiograph of 06/07/2020. FINDINGS: Heart size and pulmonary vasculature are normal. Decreased perihilar opacities compared to prior radiograph from 06/07/2020. No new consolidation, pleural effusion, or pneumothorax. The osseous structures are intact. There is moderate amount of gas and stool throughout the colon. Nonobstructive bowel gas pattern. No radiopaque foreign body. The osseous structures are intact. IMPRESSION: No acute abnormality in the chest or abdomen. Nonobstructive bowel gas pattern. Dictated by: Dictated on workstation # [id number] Dict: 06/30/20 1354 Trans: 06/30/20 1407 [id number] [id number] Interpreted by: RAMON COTTON DO Electronically signed by: RAMON COTTON DO 06/30/20 1407 Departure Impression Primary Impression: Abdominal ascites Disposition: HOME, SELF-CARE Condition: Stable/Unchanged Departure-Patient Inst. Decision time for Depature: 15:11 Referrals: [facility] (PCP/Family) Primary Care Physician Patient Instructions: Cirrhosis (DC), Diet for Cirrhosis Add. Discharge Instructions: Plan: 1. Discharge home. 2. Call Dr. Aranda office tomorrow for US guided paracentesis, to be at noon on 07/04/20. [phone] 3. Follow up with your primary care provider if your symptoms persist. 4. Return for any new or worsening symptoms. All discharge instructions reviewed with patient and/or family. Voiced understanding. JOSE DING WEB SITE PROJECT MANAGER Jun 30, 2020 12:55
[2020-06-30 13:46] LABS: BASOPHILS # (AUTO) 0.1 10^3/uL (0.0-0.1); BASOPHILS % (AUTO) 1 % (0-10); EOSINOPHILS # (AUTO) 0.5 10^3/uL (0.0-0.3); EOSINOPHILS % (AUTO) 5 % (0-10); HEMATOCRIT 29 % (40-54); HEMOGLOBIN 9.9 g/dL (13.3-17.7); LYMPHOCYTES # (AUTO) 2.7 10^3/uL (1.0-4.0); LYMPHOCYTES % (AUTO) 31 % (12-44); MEAN CORPUSCULAR HEMOGLOBIN 30 pg (25-34); MEAN CORPUSCULAR HGB CONC 34 g/dL (32-36); MEAN CORPUSCULAR VOLUME 87 fL (80-99); MEAN PLATELET VOLUME 11.1 fL (9.0-12.2); MONOCYTES # (AUTO) 1.4 10^3/uL (0.0-1.0); MONOCYTES % (AUTO) 16 % (0-12); NEUTROPHILS % (AUTO) 46 % (42-75); PLATELET COUNT 224 10^3/uL (130-400); WHITE BLOOD COUNT 8.7 10^3/uL (4.3-11.0)
[2020-06-30 13:51] LABS: ALBUMIN 2.8 GM/DL (3.2-4.5); CHLORIDE 102 MMOL/L (98-107); POTASSIUM 3.6 MMOL/L (3.6-5.0); SODIUM 133 MMOL/L (135-145)
[2020-06-30 13:52] LABS: CALCIUM 8.1 MG/DL (8.5-10.1)
[2020-06-30 13:53] LABS: GLUCOSE 110 MG/DL (70-105); TOTAL PROTEIN 7.3 GM/DL (6.4-8.2)
[2020-06-30 13:54] LABS: CARBON DIOXIDE 21 MMOL/L (21-32)
[2020-06-30 13:55] LABS: BILIRUBIN,TOTAL 2.6 MG/DL (0.1-1.0)
[2020-06-30 13:57] LABS: ALKALINE PHOSPHATASE 85 U/L (40-136); GFR ESTIMATED > 60
--- NOTE | 2020-06-30 13:57 | Diagnostic Imaging Report ---
EXAMINATION: Abdominal series and chest radiograph HISTORY: Distended abdomen COMPARISON: Chest radiograph of 06/07/2020. FINDINGS: Heart size and pulmonary vasculature are normal. Decreased perihilar opacities compared to prior radiograph from 06/07/2020. No new consolidation, pleural effusion, or pneumothorax. The osseous structures are intact. There is moderate amount of gas and stool throughout the colon. Nonobstructive bowel gas pattern. No radiopaque foreign body. The osseous structures are intact. IMPRESSION: No acute abnormality in the chest or abdomen. Nonobstructive bowel gas pattern. Dictated by: Dictated on workstation # [id number]
[2020-06-30 13:58] LABS: BUN/CREATININE RATIO 9
[2020-06-30 14:00] LABS: ALANINE AMINOTRANSFERASE 28 U/L (0-55)
[2020-06-30 14:01] LABS: INR 1.5 (0.8-1.4); PROTHROMBIN TIME PATIENT 18.8 SEC (12.2-14.7)
[2020-06-30 15:40] VITALS: BP 129/85
== END 2020-06-30 15:28 | disposition home or self-care (01) ==
LOC: EDUNIT# 12:19 → ER 12:22
DX: R18.8 Other ascites (principal); Z77.22 Contact with and (suspected) exposure to environmental tobacco smoke (acute) (chronic)
CPT/HCPCS: 74022; 80053; 85025; 85610; 85730; 99284; G0480; 80320

== ENCOUNTER → 2020-07-03 | Outpatient (CLI) | payer MEDICAID ==
[~2020-07-03] VITALS: Ht 170.2 cm; Wt 72.7 kg
[2020-07-03 12:41] LABS: AMYLASE,BODY FLUID 16 U/L; GLUCOSE,BODY FLUID 124 MG/DL
--- NOTE | 2020-07-03 12:42 | Diagnostic Imaging Report ---
EXAMINATION: Ultrasound-guided paracentesis. INDICATION: Ascites. FINDINGS: A large collection of ascites was identified in the right lower quadrant. The skin over the fluid collection was marked for the paracentesis to be performed by Dr. Mehdi Aranda. Reportedly, the paracentesis was performed without complication. Approximately 5000 cc of fluid was removed. IMPRESSION: There has been a successful ultrasound-guided paracentesis. Dictated by: Dictated on workstation # [id number]
[2020-07-03 12:45] LABS: LDH,BODY FLUID 41 U/L
[2020-07-03 13:03] LABS: BODY FLUID APPEARENCE CLEAR; BODY FLUID COLOR YELLOW; BODY FLUID SOURCE PERITON; BODY FLUID WBC TOTAL COUNT 156.25 /uL
[2020-07-03 13:04] LABS: BODY FLUID RBC COUNT 136.25 /uL
[2020-07-03 14:16] LABS: BF OTHER CELLS 44 %; LYMPHOCYTES,BODY FLUID 36 %
--- NOTE | 2020-07-03 19:34 | OPERATIVE REPORT ---
DATE OF SERVICE: 07/03/2020 PREOPERATIVE DIAGNOSIS: Symptomatic ascites. POSTOPERATIVE DIAGNOSIS: Symptomatic ascites. PROCEDURE: Ultrasound-guided paracentesis. SURGEON: August Aranda DO ANESTHESIA: 1% lidocaine 3 mL. ESTIMATED BLOOD LOSS: None. COMPLICATIONS: None. INDICATIONS: The patient is a 60-year-old male with symptomatic ascites. He understands risks and benefits of procedure and wished to proceed with procedure. Consent was signed in the chart. DESCRIPTION OF PROCEDURE: The patient was taken to the procedure room. He was prepped and draped in sterile fashion. A timeout was performed. Ultrasound was used to isolate the largest pocket. Local anesthetic was infiltrated and 11 blade scalpel was used to make a small skin incision. Anxo-H-[id number] needle and catheter was then advanced through the abdominal wall until straw-colored fluid was withdrawn. The catheter was then advanced and the needle was removed. A total of 4650 mL of fluid was withdrawn. The catheter was then removed and sterile bandage was applied. The patient tolerated procedure well without any complications, taken to recovery room in stable condition. Job ID: [id number] DocumentID: [id number] Dictated Date: 07/03/2020 12:56:49 Network Relations Consultant Date: 07/03/2020 19:33:06 Dictated By: AUGUST ARANDA DO
== END ==
LOC: RAD 10:15
PROVIDERS: ATTEND Surgery
DX: R18.8 Other ascites (principal)
CPT/HCPCS: 49083; 82150; 82570; 82945; 83615; 84157; 87070; 87075; 87205; 89051; A7048